=== PATIENT | female | born 1975 | race Caucasian/White ===

== ENCOUNTER 2020-04-16 12:41 | Emergency (ER) | payer MEDICAID ==
--- NOTE | 2020-04-16 13:51 | ED Physician Documentation ---
PD HPI FEMALE - Stated complaint Stated Complaint: F - Chief complaint Chief Complaint: General - History obtained from History obtained from: Patient PD PAST MEDICAL HISTORY - Past Medical History Past Medical History: No - Past Surgical History Past Surgical History: No - Present Medications Home Medications: Ambulatory Orders Medication Instructions Recorded Confirmed No Known Home Medications 04/16/20 04/16/20 - Allergies Allergies/Adverse Reactions: Allergies Allergy/AdvReac Type Severity Reaction Status Date / Time Penicillins Allergy Anaphylaxis Verified 04/16/20 12:49 - Social History Does the pt smoke?: No Smoking Status: Never smoker Does the pt have substance abuse?: No - POLST Patient has POLST: No Results - Vitals Vitals: Vital Signs - 24 hr 04/16/20 12:47 Temperature 36.3 C L Heart Rate 69 Respiratory 16 Rate Blood Pressure 118/75 O2 Saturation 98 Oxygen O2 Source Room air
--- NOTE | 2020-04-16 15:50 | ED Physician Documentation ---
History of Present Illness - Stated complaint Stated Complaint: F - Chief complaint Chief Complaint: General - History obtained from History obtained from: Patient - Additonal information Additional information: Patient comes emergency department complaining of left pelvic pain and possibility of having left a tampon in which she cannot get out for the last 5 days. Patient states that she was on her period and thought she may have forgotten to put a tampon in, so she inserted a tampon at that time. Patient states she felt some discomfort in her left pelvic area and thought that perhaps she had already put a tampon and now had [address] However, when patient removed the second tampon, she did not find another tampon came out with it. She states she tried to see if she could locate the other potential tampon, but was not able to find a string or any other part of it to pull out. Patient states she is continued to have left pelvic discomfort which is a pressure-like feeling, for the last several days since. She denies any bleeding or foul- smelling discharge. No fevers or chills. Nothing else unusual. No other complaints at this time. Review of Systems Ten Systems: 10 systems reviewed and negative Constitutional: reports: Reviewed and negative Eyes: reports: Reviewed and negative Ears: reports: Reviewed and negative Nose: reports: Reviewed and negative Throat: reports: Reviewed and negative Cardiac: reports: Reviewed and negative Respiratory: reports: Reviewed and negative GI: reports: Reviewed and negative : reports: Other (Pelvic Discomfort) Skin: reports: Reviewed and negative Musculoskeletal: reports: Reviewed and negative Neurologic: reports: Reviewed and negative Psychiatric: reports: Reviewed and negative Endocrine: reports: Reviewed and negative Immunocompromised: reports: Reviewed and negative PD PAST MEDICAL HISTORY - Past Medical History Past Medical History: No - Past Surgical History Past Surgical History: No - Present Medications Home Medications: Ambulatory Orders Medication Instructions Recorded Confirmed No Known Home Medications 04/16/20 04/16/20 - Allergies Allergies/Adverse Reactions: Allergies Allergy/AdvReac Type Severity Reaction Status Date / Time Penicillins Allergy Anaphylaxis Verified 04/16/20 12:49 - Social History Does the pt smoke?: No Smoking Status: Never smoker Does the pt have substance abuse?: No - POLST Patient has POLST: No PD ED PE NORMAL - Vitals Vital signs reviewed: Yes - General General: Alert and oriented X 3, No acute distress - HEENT HEENT: Atraumatic, PERRL, EOMI, Moist mucous membranes - Neck Neck: Supple, no meningeal sign - Cardiac Cardiac: RRR, No murmur, Strong equal pulses - Respiratory Respiratory: No respiratory distress, Clear bilaterally - Abdomen Abdomen: Soft, Non tender, Non distended - Female Female : Other (Normal vaginal exam. External genitalia normal. No bleeding. Normal vaginal mucosa and normal-appearing cervix. No bleeding or other evidence of trauma. No foreign body noted, either within the vagina or within sulcus surrounding the cervix. No mass.) - Derm Derm: Warm and dry - Extremities Extremities: No deformity - Neuro Neuro: Alert and oriented X 3 - Psych Psych: Normal mood, Normal affect Results - Vitals Vitals: Oxygen O2 Source Room air - Labs Labs: Laboratory Tests 04/16/20 18:30 Urine Color YELLOW Urine Clarity CLEAR Urine pH 6.0 Ur Specific [place] 1.015 Urine Protein NEGATIVE Urine Glucose (UA) NEGATIVE Urine Ketones TRACE Urine Occult Blood TRACE-INTA Urine Nitrite NEGATIVE Urine Bilirubin NEGATIVE Urine Urobilinogen 0.2 (NORMAL) Ur Leukocyte Esterase NEGATIVE Ur Microscopic Review NOT INDICATED Urine Culture Comments NOT INDICATED PD MEDICAL DECISION MAKING - ED course Complexity details: reviewed results, re-evaluated patient, considered differential, d/w patient ED course: I discussed with the patient that I have not found a tampon in place, either within the vaginal canal or up along the cervix. As such, I am not sure of the cause of her pelvic pressure and discomfort, so I ordered an ultrasound to further evaluate this. Patient was signed out to oncoming emergency physician pending ultrasound and final disposition. Departure - Departure Disposition: 01 Home, Self Care Clinical Impression: Pelvic pain Condition: Stable Instructions: ED Pelvic Pain [facility] Follow-Up: Mandy Costa MD [Provider Admit Priv/Credential] - Comments: Your ultrasound showed some general enlargement and thickening of the uterus but not in any one location. (Not a fibroid or tumor). No other pelvic abnormalities seen. Your urine test is normal. Not clear the cause of the pelvic discomfort at this time. Consider some anti-inflammatory such as ibuprofen or naproxen twice daily for potential inflammation or such. Follow-up with [facility] regarding if any further evaluation is needed about the uterus but the radiology report does state its common finding and some percentage of ultrasounds. Discharge Date/Time: 04/16/20 20:30
--- NOTE | 2020-04-16 17:13 | Ultrasound Report ---
Reason: pelvic pain, R Procedure Date: 04/16/2020 Accession Number: [id number] / [id number] Procedure: US - Pelvic w/Transvag+Doppler Comp CPT Code: Final Report FULL RESULT: EXAM: PELVIC ULTRASOUND WITH DOPPLERS CLINICAL HISTORY: Right pelvic pain. COMPARISON: None. TECHNIQUE: Realtime transabdominal imaging performed to identify the uterus and adnexa and as an overview of other pelvic structures, followed by transvaginal imaging for better assessment of the endometrium and adnexa, with static image documentation. Color flow imaging and Doppler spectral analysis was performed to evaluate blood flow to the ovaries given pelvic pain and clinical concern for ovarian torsion. FINDINGS: Tech comments: Patient tender in left adnexa during exam. Uterus: 10.3 x 5.5 x 5.8 cm, volume 171.2 cc. Anteverted position. Normal overall size. 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 Masses: There is a 3 cm submucosal fibroid within the posterior uterine body. Endometrium: 8 mm. Normal. Cervix: Several nabothian cysts. Otherwise unremarkable. Right Ovary: 2.6 x 2.4 x 2.1 cm, volume 7 cc. Normal echotexture. Arterial and venous blood flow are present. PSV 9.4 cm/sec. RI 0.6. Adnexa are unremarkable. Left Ovary: 2.3 x 1.7 x 3.4 cm, volume 7.2 cc. Normal echotexture. Arterial and venous blood flow are present. PSV 8.7 cm/sec. RI 0.7. Adnexa are unremarkable. Free Fluid: None. Other: None. IMPRESSION: 1. Question diffuse uterine adenomyosis. Recommend nonemergent MRI female pelvis for further evaluation. 2. Fibroid uterus. 3. Arterial and venous blood flow are present to the ovaries bilaterally. RADIA
[2020-04-16 19:07] LABS: BILIRUBIN,URINE NEGATIVE (NEGATIVE); CLARITY,URINE CLEAR (CLEAR); GLUCOSE, URINE (UA) NEGATIVE (NEGATIVE); KETONES,URINE (UA) TRACE mg/dL (NEGATIVE); LEUKOCYTE ESTERASE, URINE NEGATIVE (NEGATIVE); NITRITE,URINE NEGATIVE (NEGATIVE); OCCULT BLOOD,URINE TRACE-INTA (NEGATIVE); PROTEIN,URINE NEGATIVE (NEGATIVE); UROBILINOGEN,URINE 0.2 (NORMAL) E.U./dL (NORMAL)
[2020-04-16 20:21] VITALS: BP 119/78
== END 2020-04-16 20:30 | disposition home or self-care (01) ==
LOC: ED 12:41
DX: R10.2 Pelvic and perineal pain (principal); D25.0 Submucous leiomyoma of uterus
CPT/HCPCS: 76830; 76856; 81001; 81003; 87086; 93975; 99284

== ENCOUNTER 2020-11-29 17:44 | Emergency (ER) | payer MEDICAID ==
--- NOTE | 2020-11-29 18:08 | ED Physician Documentation ---
PD HPI CHEST PAIN - Stated complaint Stated Complaint: CHEST DISCOMFORT - Chief complaint Chief Complaint: Cardiac - History obtained from History obtained from: Patient - Additional information Additional information: For the last month she has had progressive palpitations. Initially they were only present with activity, now they are present at rest. It is pounding of the heart, that does still worsens with exertion especially walking up the stairs. She does feel short of breath with exertion with it. Today her had gotten her a new watch which measures heart rate and evidently somehow managed measures blood pressure even though it does not have a cuff on it. It told her her blood pressure was 140/80 and this worried her to come to the emergency department. Family history is notable for mom who of cardiomyopathy that was viral related while waiting for transplant and a maternal grandfather who in his 60s of an [place] but he was a heavy smoker. Of note I took a look at the new watch she has. It seems to have a mechanism for checking heart rate with a Fitbit type mechanism with flashing green lights. But I do not see how it will check blood pressure. Review of Systems Ten Systems: 10 systems reviewed and negative Constitutional: denies: Fever, Chills, Weight Loss Cardiac: denies: Pedal edema, Calf pain Respiratory: denies: Hemoptysis, Wheezing GI: denies: Abdominal Pain PD PAST MEDICAL HISTORY - Past Medical History Past Medical History: No - Past Surgical History Past Surgical History: No - Present Medications Home Medications: Ambulatory Orders Medication Instructions Recorded Confirmed Ferrous Sulfate 325 mg PO TID #90 tablet. 11/29/20 - Allergies Allergies/Adverse Reactions: Allergies Allergy/AdvReac Type Severity Reaction Status Date / Time Penicillins Allergy Anaphylaxis Verified 11/29/20 17:54 - Social History Does the pt smoke?: No Smoking Status: Never smoker Does the pt drink ETOH?: Yes ETOH Use: Wine Does the pt have substance abuse?: No - Immunizations Immunizations are current?: Yes - POLST Patient has POLST: No PD ED PE NORMAL - Vitals Vital signs reviewed: Yes - General General: Alert and oriented X 3, No acute distress - HEENT HEENT: PERRL, EOMI - Neck Neck: Supple, no meningeal sign, No bony TTP - Cardiac Cardiac: RRR, No murmur - Respiratory Respiratory: No respiratory distress, Clear bilaterally - Abdomen Abdomen: Non tender - Back Back: No CVA TTP, No spinal TTP - Derm Derm: Normal color, Warm and dry - Extremities Extremities: No edema, No calf tenderness / cord - Neuro Neuro: Alert and oriented X 3, Normal speech Results - Vitals Vitals: Vital Signs - 24 hr 11/29/20 11/29/20 11/29/20 17:55 18:01 18:03 Temperature 36.6 C 36.6 C 36.6 C Heart Rate 99 94 Respiratory 16 21 Rate Blood Pressure 129/73 129/73 O2 Saturation 100 100 11/29/20 11/29/20 11/29/20 18:04 19:51 20:01 Temperature 36.6 C 37.5 C Heart Rate 99 96 88 Respiratory 16 21 12 Rate Blood Pressure 129/73 112/68 109/56 L O2 Saturation 100 97 11/29/20 11/29/20 11/29/20 20:03 20:13 20:57 Temperature 37.2 C 37.1 C 37.5 C Heart Rate 96 95 92 Respiratory 13 98 H 21 Rate Blood Pressure 108/60 122/66 119/60 O2 Saturation 11/29/20 11/29/20 11/29/20 21:45 21:55 22:03 Temperature 37.6 C 37.6 C 37.1 C Heart Rate 88 88 87 Respiratory 19 19 20 Rate Blood Pressure 112/57 L 112/57 L 106/59 L O2 Saturation 11/29/20 11/29/20 11/29/20 22:12 22:19 23:07 Temperature 36.8 C 37.5 C Heart Rate 78 74 Respiratory 14 11 L Rate Blood Pressure 98/47 L 101/56 L 96/56 L O2 Saturation 11/29/20 23:50 Temperature 37.5 C Heart Rate 74 Respiratory 12 Rate Blood Pressure 106/57 L O2 Saturation Oxygen O2 Source Room air - EKG (time done) 1750 Rate: Rate (enter#) (92) Rhythm: NSR [place]: LAD (borderline) Intervals: Normal PA QRS: Normal Ischemia: Normal ST segments Computer interpretation: Agree with computer - Labs Labs: Laboratory Tests 11/29/20 11/29/20 11/29/20 18:20 18:20 18:20 WBC 10.6 RBC 2.86 L Hgb 4.7 L* Hct 18.3 L* MCV 64.0 L MCH 16.4 L MCHC 25.7 L RDW 20.0 H Plt Count 437 MPV 10.1 Neut # (Auto) 7.1 H Lymph # (Auto) 2.2 Hardy # (Auto) 1.0 Eos # (Auto) 0.1 Baso # (Auto) 0.0 Absolute Nucleated RBC 0.05 Nucleated RBC % 0.5 Manual Slide Review Indicated Platelet Estimate NORMAL (130-450,000) Platelet Morphology NORMAL APPEARANCE RBC Morph Micro Appear 1+ ACANTHOCYTES D-Dimer 743.1 H Sodium 136 Potassium 3.5 Chloride 99 L Carbon Dioxide 22 Anion Gap 15.0 H BUN 12 Creatinine 0.9 Estimated GFR (MDRD) 67 L Glucose 141 H Calcium 9.0 Total Bilirubin 0.4 AST 23 ALT 24 Alkaline Phosphatase 104 Troponin I High Sens B-Natriuretic Peptide Total Protein 8.4 H Albumin 3.9 Globulin 4.5 H Albumin/Globulin Ratio 0.9 L Lipase 51 Urine Color Urine Clarity Urine pH Ur Specific [place] Urine Protein Urine Glucose (UA) Urine Ketones Urine Occult Blood Urine Nitrite Urine Bilirubin Urine Urobilinogen Ur Leukocyte Esterase Urine RBC Urine WBC Ur Squamous Epith Cells Urine Bacteria Ur Microscopic Review Urine Culture Comments Urine HCG, Qual Urine Opiates Screen Ur Oxycodone Screen Urine Methadone Screen Ur Propoxyphene Screen Ur Barbiturates Screen Ur Tricyclics Screen Ur Phencyclidine Scrn Ur Amphetamine Screen U Methamphetamines Scrn U Benzodiazepines Scrn Urine Cocaine Screen U Cannabinoids Screen Blood Type Blood Type Recheck Antibody Screen Crossmatch IS Only 11/29/20 11/29/20 11/29/20 18:20 18:20 18:20 WBC RBC Hgb Hct MCV MCH MCHC RDW Plt Count MPV Neut # (Auto) Lymph # (Auto) Hardy # (Auto) Eos # (Auto) Baso # (Auto) Absolute Nucleated RBC Nucleated RBC % Manual Slide Review Platelet Estimate Platelet Morphology RBC Morph Micro Appear D-Dimer Sodium Potassium Chloride Carbon Dioxide Anion Gap BUN Creatinine Estimated GFR (MDRD) Glucose Calcium Total Bilirubin AST ALT Alkaline Phosphatase Troponin I High Sens 2.3 B-Natriuretic Peptide 58 Total Protein Albumin Globulin Albumin/Globulin Ratio Lipase Urine Color YELLOW Urine Clarity HAZY Urine pH 5.5 Ur Specific [place] <=1.005 Urine Protein NEGATIVE Urine Glucose (UA) NEGATIVE Urine Ketones NEGATIVE Urine Occult Blood SMALL H Urine Nitrite NEGATIVE Urine Bilirubin NEGATIVE Urine Urobilinogen 0.2 (NORMAL) Ur Leukocyte Esterase NEGATIVE Urine RBC 0-5 Urine WBC 0-3 Ur Squamous Epith Cells FEW Squamous Urine Bacteria Few Ur Microscopic Review INDICATED Urine Culture Comments NOT INDICATED Urine HCG, Qual NEGATIVE Urine Opiates Screen NEGATIVE Ur Oxycodone Screen NEGATIVE Urine Methadone Screen NEGATIVE Ur Propoxyphene Screen NEGATIVE Ur Barbiturates Screen NEGATIVE Ur Tricyclics Screen NEGATIVE Ur Phencyclidine Scrn NEGATIVE Ur Amphetamine Screen NEGATIVE U Methamphetamines Scrn NEGATIVE U Benzodiazepines Scrn NEGATIVE Urine Cocaine Screen NEGATIVE U Cannabinoids Screen POSITIVE H Blood Type Blood Type Recheck Antibody Screen Crossmatch IS Only 11/29/20 11/29/20 11/30/20 18:20 18:55 00:15 WBC 10.8 RBC 3.43 L Hgb 7.0 L* Hct 24.5 L MCV 71.4 L MCH 20.4 L MCHC 28.6 L RDW 25.4 H Plt Count 350 MPV 10.4 Neut # (Auto) 7.5 H Lymph # (Auto) 1.9 Hardy # (Auto) 1.3 H Eos # (Auto) 0.1 Baso # (Auto) 0.0 Absolute Nucleated RBC 0.08 Nucleated RBC % 0.7 Manual Slide Review Platelet Estimate Platelet Morphology RBC Morph Micro Appear D-Dimer Sodium Potassium Chloride Carbon Dioxide Anion Gap BUN Creatinine Estimated GFR (MDRD) Glucose Calcium Total Bilirubin AST ALT Alkaline Phosphatase Troponin I High Sens B-Natriuretic Peptide Total Protein Albumin Globulin Albumin/Globulin Ratio Lipase Urine Color Urine Clarity Urine pH Ur Specific [place] Urine Protein Urine Glucose (UA) Urine Ketones Urine Occult Blood Urine Nitrite Urine Bilirubin Urine Urobilinogen Ur Leukocyte Esterase Urine RBC Urine WBC Ur Squamous Epith Cells Urine Bacteria Ur Microscopic Review Urine Culture Comments Urine HCG, Qual Urine Opiates Screen Ur Oxycodone Screen Urine Methadone Screen Ur Propoxyphene Screen Ur Barbiturates Screen Ur Tricyclics Screen Ur Phencyclidine Scrn Ur Amphetamine Screen U Methamphetamines Scrn U Benzodiazepines Scrn Urine Cocaine Screen U Cannabinoids Screen Blood Type AB POSITIVE Blood Type Recheck AB POSITIVE Antibody Screen NEGATIVE Crossmatch IS Only See Detail - Rads (name of study) CTA Chest Radiology: EMP read indepedently (No PE, note of gallstones) PD MEDICAL DECISION MAKING - ED course ED course: 45-year-old woman presents with progressive rapid palpitations especially on exertion. She was found to be significantly anemic with a hemoglobin of 4.7 with microcytic indices. She says she is pretty much had constant bleeding for the last 4 to 5 months. Menstrual bleeding that is. Review of the chart and after discussing this she notes that she was here in March for pelvic pain and had an ultrasound done showing question of diffuse uterine adenomyosis and fibroid uterus recommending MRI and follow-up. Patient was recommended to follow-up with [facility] but failed to do so. Case d/w Dr Whitten (product assurance engineer) by phone at [phone], agrees with transfusion and outpt f/u to likely include EMB. This was all complicated by the high D-dimer ordered after initial evaluation given her complaints. CT angiography was ordered and done noting that I tried several times to put in an IV larger than the 22-gauge that the nurse was able to get. This was only met with failure even with ultrasound guidance. That said I discussed with the shipping technician to go ahead and do it with the 22G IV and the images actually do not look too bad to me. Given 2 units of pRBCs and after that HGB = 7. She will start iron tomorrow and verbalizes need for close f/u with veneer glue jointer feedback. Departure - Departure Disposition: Home, Self Care Clinical Impression: Vaginal bleeding Chest pain Qualifiers: Chest pain type: other chest pain Qualified Code(s): R07.89 - Other chest pain Profound anemia Qualifiers: Anemia type: iron deficiency Iron deficiency anemia type: chronic blood loss Qualified Code(s): D50.0 - Iron deficiency anemia secondary to blood loss (chronic) Condition: Good Record reviewed to determine appropriate education?: Yes Instructions: ED Bleed Irregular Vaginal Follow-Up: Andrew Whitten MD [Provider Admit Priv/Credential] - Within 1 week Prescriptions: Ferrous Sulfate 325 mg PO TID #90 tablet. Comments: Your hemoglobin came up to 7.0 after 2 units of blood were transfused today. As discussed you need to follow-up with OB later this week for repeat blood counts, and further evaluation of the vaginal bleeding potentially a pelvic MRI or endometrial biopsy. Return if worsening. Discharge Date/Time: 11/30/20 00:30
[2020-11-29 18:26] LABS: MUDS CUTOFF CONCENTRATIONS CUTOFF CONC BELOW:
[2020-11-29 18:34] LABS: BASOPHILS % (AUTO) 0.4 %; BILIRUBIN,URINE NEGATIVE (NEGATIVE); EOSINOPHILS # (AUTO) 0.1 10^3/uL (0.0-0.7); EOSINOPHILS % (AUTO) 1.2 %; GLUCOSE, URINE (UA) NEGATIVE (NEGATIVE); KETONES,URINE (UA) NEGATIVE (NEGATIVE); LEUKOCYTE ESTERASE, URINE NEGATIVE (NEGATIVE); LYMPHOCYTES # (AUTO) 2.2 10^3/uL (1.5-3.5); LYMPHOCYTES % (AUTO) 20.6 %; MEAN CORPUSCULAR HEMOGLOBIN 16.4 pg (27.0-31.0); MEAN CORPUSCULAR HGB CONC 25.7 g/dL (32.0-36.0); MEAN PLATELET VOLUME 10.1 fL (7.9-10.8); MONOCYTES % (AUTO) 9.4 %; NEUTROPHILS # (AUTO) 7.1 10^3/uL (1.5-6.6); NEUTROPHILS % (AUTO) 67.6 %; NITRITE,URINE NEGATIVE (NEGATIVE); OCCULT BLOOD,URINE SMALL (NEGATIVE); PH,URINE 5.5 PH (5.0-7.5); PLT - PLATELET COUNT 437 10^3/uL (130-450); PROTEIN,URINE NEGATIVE (NEGATIVE); RED BLOOD COUNT 2.86 10^6/uL (4.20-5.40); UROBILINOGEN,URINE 0.2 (NORMAL) E.U./dL (NORMAL); WHITE BLOOD COUNT 10.6 x10^3/uL (4.8-10.8)
--- NOTE | 2020-11-29 18:34 | XRAY Report ---
PROCEDURE: Chest 1 View X-Ray INDICATIONS: chest pain TECHNIQUE: One view of the chest was acquired. COMPARISON: None FINDINGS: Surgical changes and devices: None. Lungs and pleura: No pleural effusions or pneumothorax. Lungs are clear. Mediastinum: Mediastinal contours appear normal. Heart size is normal. Bones and chest wall: No suspicious bony lesions. Overlying soft tissues appear unremarkable. IMPRESSION: No acute cardiopulmonary pathology. Reviewed by: Christiano Vyas MD on 11/29/2020 6:32 PM [facility] Approved by: Christiano Vyas MD on 11/29/2020 6:32 PM [facility] Station ID: [id number]
[2020-11-29 18:36] LABS: HGB - HEMOGLOBIN 4.7 g/dL (12.0-16.0)
[2020-11-29 18:43] LABS: ALBUMIN 3.9 g/dL (3.2-5.5); ALBUMIN/GLOBULIN RATIO 0.9 (1.0-2.2); BILIRUBIN,TOTAL 0.4 mg/dL (0.2-1.0); CREATININE 0.9 mg/dL (0.4-1.0); TOTAL PROTEIN 8.4 g/dL (6.7-8.2)
[2020-11-29 18:44] LABS: CLARITY,URINE HAZY (CLEAR); HCG UR QUAL NEGATIVE
[2020-11-29 18:45] LABS: AMPHETAMINE SCREEN,URINE NEGATIVE (NEGATIVE); BENZODIAZEPINES SCREEN, URINE NEGATIVE (NEGATIVE); COCAINE SCREEN URINE NEGATIVE (NEGATIVE); METHADONE SCREEN, URINE NEGATIVE (NEGATIVE); METHAMPHETAMINES SCREEN, URINE NEGATIVE (NEGATIVE); OPIATE SCREEN, URINE NEGATIVE (NEGATIVE); OXYCODONE SCREEN, URINE NEGATIVE (NEGATIVE); PROPOXYPHENE SCREEN, URINE NEGATIVE (NEGATIVE); TRICYCLIC ANTIDEPRESSANT,URINE NEGATIVE (NEGATIVE)
[2020-11-29 18:56] LABS: BACTERIA,URINE Few /HPF (None Seen); RBC,URINE 0-5 /HPF (0-5); SQUAMOUS EPITHELIAL CELL,UR FEW Squamous (<= Few)
[2020-11-29 19:02] LABS: PLATELET ESTIMATE, MANUAL NORMAL (130-450,000) (NORMAL); PLATELET MORPHOLOGY NORMAL APPEARANCE (NORMAL)
[2020-11-29] MEDS ORDERED: IOVERSOL 320 100 ML VIAL IVP ONE ×2 (19:15→19:45)
--- NOTE | 2020-11-29 20:02 | CT Report ---
PROCEDURE: ANGIO CHEST W/WO INDICATIONS: palpitations, high dimer CONTRAST: IV CONTRAST: Optiray 320 ml: 100 PO CONTRAST: *NO PO CONTRAST TECHNIQUE: After the administration of intravenous contrast, 2 mm thick sections acquired from the pulmonary api lawson to the posterior costophrenic angles. 3-dimensional maximum intensity projection (MIP) coronal a nd sagittal reformats were then acquired through the thorax. For radiation dose reduction, the follow ing was used: automated exposure control, adjustment of mA and/or kV according to patient size. COMPARISON: Chest radiograph from the same day. FINDINGS: Image quality: Excellent. Pulmonary arteries: Pulmonary arteries are normal in size, and demonstrate no intraluminal filling d efects to suggest central pulmonary embolism. Distal subsegmental branches of bilateral pulmonary ar teries are suboptimally opacified. Lungs and pleura: Lungs are clear. No pleural effusions or pneumothorax. Central and peripheral ai rways are patent. Mediastinum: Heart size is normal, without pericardial effusion. No mediastinal or hilar adenopathy . Thoracic aorta is normal in caliber and enhancement. Esophagus is normal in caliber, without hiat al hernia. Bones and chest wall: No suspicious bony lesions. Ribs and thoracic spine appear intact throughout. The thyroid is normal. No axillary or supraclavicular adenopathy. Abdomen: Visualized upper abdominal solid organs appear normal in the early arterial phase of enhanc ement. Cholelithiasis is seen. IMPRESSION: 1. No evidence of central pulmonary emboli. No thoracic aortic aneurysm or gross dissection. 2. No mediastinal or hilar lymphadenopathy. 3. Bilateral lungs are clear. 4. Incidentally noted of cholelithiasis. No CT evidence of acute cholecystitis. Reviewed by: Christiano Vyas MD on 11/29/2020 8:01 PM PST Approved by: Christiano Vyas MD on 11/29/2020 8:01 PM PST Station ID: [id number]
[2020-11-29 23:51] VITALS: BP 106/57
[2020-11-30 00:18] LABS: BASOPHILS % (AUTO) 0.4 %; EOSINOPHILS # (AUTO) 0.1 10^3/uL (0.0-0.7); EOSINOPHILS % (AUTO) 0.6 %; LYMPHOCYTES # (AUTO) 1.9 10^3/uL (1.5-3.5); LYMPHOCYTES % (AUTO) 17.6 %; MEAN CORPUSCULAR HEMOGLOBIN 20.4 pg (27.0-31.0); MEAN CORPUSCULAR HGB CONC 28.6 g/dL (32.0-36.0); MEAN CORPUSCULAR VOLUME 71.4 fL (81.0-99.0); MEAN PLATELET VOLUME 10.4 fL (7.9-10.8); MONOCYTES # (AUTO) 1.3 10^3/uL (0.0-1.0); MONOCYTES % (AUTO) 11.8 %; NEUTROPHILS # (AUTO) 7.5 10^3/uL (1.5-6.6); NEUTROPHILS % (AUTO) 68.9 %; PLT - PLATELET COUNT 350 10^3/uL (130-450); RED BLOOD COUNT 3.43 10^6/uL (4.20-5.40); RED CELL DISTRIBUTION WIDTH 25.4 % (12.0-15.0); WHITE BLOOD COUNT 10.8 x10^3/uL (4.8-10.8)
== END 2020-11-30 00:30 | disposition home or self-care (01) ==
LOC: ED 17:44
DX: R07.89 Other chest pain (principal); D50.0 Iron deficiency anemia secondary to blood loss (chronic); N93.9 Abnormal uterine and vaginal bleeding, unspecified; R79.89 Other specified abnormal findings of blood chemistry
CPT/HCPCS: 36430; 71045; 71275; 80053; 80306; 81001; 81025; 83690; 83880; 84484; 85025; 85379; 86850; 86900; 86901; 86920; 93005; 99283; 99285; P9016; Q9967; 81003; 87086

== ENCOUNTER 2021-07-11 14:50 | Emergency (ER) | payer MEDICAID ==
--- NOTE | 2021-07-11 15:31 | ED Physician Documentation ---
PD HPI CHEST PAIN - Stated complaint Stated Complaint: HEART PAPILTATIONS,WEAKNESS - Chief complaint Chief Complaint: Cardiac - History obtained from History obtained from: Patient - Additional information Additional information: 46-year-old woman with history of profound anemia. Had a hemoglobin of 4.7 on a visit earlier this year which was attributed to fibroid uterus. She was transfused at the time and her presenting symptoms that time her palpitations. She has a home hemoglobin monitor and watches her hemoglobin at home. She did not follow-up with gynecology as was recommended because she states she would not want a hysterectomy. Her hemoglobins are usually in the 9 or 10 range but dropped down to 7 and actually today read "low" which it does when it is below 6. Is associated with increased palpitations. No chest pain. She has some fatigue. Review of Systems Ten Systems: 10 systems reviewed and negative Constitutional: reports: Fatigue Cardiac: reports: Palpitations. denies: Chest pain / pressure Respiratory: denies: Dyspnea, Cough PD PAST MEDICAL HISTORY - Past Surgical History Past Surgical History: No - Present Medications Home Medications: Ambulatory Orders Medication Instructions Recorded Confirmed Ferrous Sulfate 325 mg PO TID #90 tablet. 11/29/20 07/11/21 Ferrous Sulfate 325 mg PO TID #90 07/11/21 - Allergies Allergies/Adverse Reactions: Allergies Allergy/AdvReac Type Severity Reaction Status Date / Time Penicillins Allergy Anaphylaxis Verified 07/11/21 14:54 - Social History Does the pt smoke?: No Smoking Status: Never smoker Does the pt drink ETOH?: No Does the pt have substance abuse?: No Substance Use and Type: Marijuana - Immunizations Immunizations are current?: Yes - POLST Patient has POLST: No PD ED PE NORMAL - Vitals Vital signs reviewed: Yes - General General: Alert and oriented X 3, No acute distress - HEENT HEENT: PERRL, EOMI - Neck Neck: Supple, no meningeal sign, No bony TTP - Cardiac Cardiac: RRR, No murmur - Respiratory Respiratory: No respiratory distress, Clear bilaterally - Abdomen Abdomen: Soft, Non tender - Back Back: No CVA TTP, No spinal TTP - Derm Derm: Normal color, Warm and dry - Extremities Extremities: No edema, No calf tenderness / cord - Neuro Neuro: Alert and oriented X 3, Normal speech Results - Vitals Vitals: Vital Signs - 24 hr 0807/11/21 07/11/21 14:54 15:01 15:48 Temperature 36.5 C Heart Rate 82 84 Respiratory 16 12 Rate Blood Pressure 123/59 L 121/84 H O2 Saturation 100 100 07/11/21 07/11/21 07/11/21 17:01 18:11 18:20 Temperature 36.9 C 36.6 C Heart Rate 89 83 84 Respiratory 12 16 15 Rate Blood Pressure 107/75 128/63 107/64 O2 Saturation 100 07/11/21 07/11/21 07/11/21 18:30 19:23 19:24 Temperature 36.6 C 36.6 C Heart Rate 85 90 84 Respiratory 16 16 13 Rate Blood Pressure 98/62 117/65 124/66 O2 Saturation 100 100 07/11/21 07/11/21 07/11/21 19:25 19:32 20:49 Temperature 36.6 C 36.6 C Heart Rate 81 84 84 Respiratory 17 12 18 Rate Blood Pressure 119/64 115/60 113/65 O2 Saturation 100 100 99 Oxygen O2 Source Room air - EKG (time done) 1455 Rate: Rate (enter#) (92) Rhythm: NSR, LAE [place]: Normal Intervals: Normal NE QRS: Low voltage Ischemia: Normal ST segments. No: ST elevation c/w ischemia, ST elevation c/w repol, ST depression - Labs Labs: Laboratory Tests 07/11/21 07/11/21 07/11/21 15:25 15:25 15:25 WBC 9.5 RBC 3.72 L Hgb 6.3 L* Hct 24.7 L MCV 66.4 L MCH 16.9 L MCHC 25.5 L RDW 21.6 H Plt Count 499 H MPV 9.8 Neut # (Auto) 6.5 Lymph # (Auto) 1.8 [place] # (Auto) 1.0 Eos # (Auto) 0.1 Baso # (Auto) 0.0 Absolute Nucleated RBC 0.02 Nucleated RBC % 0.2 Manual Slide Review Indicated WBC Morphology NORMAL APPEARANCE Platelet Estimate NORMAL (130-450,000) Platelet Morphology NORMAL APPEARANCE RBC Morph Micro Appear 2+ MICROCYTOSIS Sodium 138 Potassium 3.8 Chloride 105 Carbon Dioxide 23 Anion Gap 10.0 BUN 8 Creatinine 0.8 Estimated GFR (MDRD) 77 L Glucose 132 H POC Whole Bld Glucose Calcium 8.8 Iron TIBC % Saturation Transferrin Total Bilirubin 0.7 AST 26 ALT 38 Alkaline Phosphatase 104 Troponin I High Sens 3.6 Total Protein 8.0 Albumin 4.0 Globulin 4.0 Albumin/Globulin Ratio 1.0 Lipase 49 Urine Color Urine Clarity Urine pH Ur Specific [place] Urine Protein Urine Glucose (UA) Urine Ketones Urine Occult Blood Urine Nitrite Urine Bilirubin Urine Urobilinogen Ur Leukocyte Esterase Urine RBC Urine WBC Ur Squamous Epith Cells Urine Bacteria Urine Mucus Ur Microscopic Review Urine Culture Comments Urine HCG, Qual Blood Type Antibody Screen Crossmatch IS Only 07/11/21 07/11/21 07/11/21 15:25 15:30 17:06 WBC RBC Hgb Hct MCV MCH MCHC RDW Plt Count MPV Neut # (Auto) Lymph # (Auto) [place] # (Auto) Eos # (Auto) Baso # (Auto) Absolute Nucleated RBC Nucleated RBC % Manual Slide Review WBC Morphology Platelet Estimate Platelet Morphology RBC Morph Micro Appear Sodium Potassium Chloride Carbon Dioxide Anion Gap BUN Creatinine Estimated GFR (MDRD) Glucose POC Whole Bld Glucose Calcium Iron 64 TIBC 690 H % Saturation 9 L Transferrin 493 H Total Bilirubin AST ALT Alkaline Phosphatase Troponin I High Sens Total Protein Albumin Globulin Albumin/Globulin Ratio Lipase Urine Color YELLOW Urine Clarity CLEAR Urine pH 6.5 Ur Specific [place] <=1.005 Urine Protein NEGATIVE Urine Glucose (UA) NEGATIVE Urine Ketones NEGATIVE Urine Occult Blood MODERATE H Urine Nitrite NEGATIVE Urine Bilirubin NEGATIVE Urine Urobilinogen 0.2 (NORMAL) Ur Leukocyte Esterase NEGATIVE Urine RBC 6-10 H Urine WBC 0-3 Ur Squamous Epith Cells MOD Squamous H Urine Bacteria Rare Urine Mucus Few Strands Ur Microscopic Review INDICATED Urine Culture Comments NOT INDICATED Urine HCG, Qual NEGATIVE Blood Type AB POSITIVE Antibody Screen NEGATIVE Crossmatch IS Only See Detail 07/11/21 19:07 WBC RBC Hgb Hct MCV MCH MCHC RDW Plt Count MPV Neut # (Auto) Lymph # (Auto) [place] # (Auto) Eos # (Auto) Baso # (Auto) Absolute Nucleated RBC Nucleated RBC % Manual Slide Review WBC Morphology Platelet Estimate Platelet Morphology RBC Morph Micro Appear Sodium Potassium Chloride Carbon Dioxide Anion Gap BUN Creatinine Estimated GFR (MDRD) Glucose POC Whole Bld Glucose 103 H Calcium Iron TIBC % Saturation Transferrin Total Bilirubin AST ALT Alkaline Phosphatase Troponin I High Sens Total Protein Albumin Globulin Albumin/Globulin Ratio Lipase Urine Color Urine Clarity Urine pH Ur Specific [place] Urine Protein Urine Glucose (UA) Urine Ketones Urine Occult Blood Urine Nitrite Urine Bilirubin Urine Urobilinogen Ur Leukocyte Esterase Urine RBC Urine WBC Ur Squamous Epith Cells Urine Bacteria Urine Mucus Ur Microscopic Review Urine Culture Comments Urine HCG, Qual Blood Type Antibody Screen Crossmatch IS Only PD MEDICAL DECISION MAKING - ED course ED course: 46-year-old woman with symptomatic anemia previously presumed to be due to a gynecologic cause now has regulated periods but again has symptomatic anemia with hemoglobin of 6.3. We discussed blood transfusion and she initially declined at least wanting to think about it unless we could guarantee that the source had not been vaccinated against Covid as she is worried about mRNA. Either way, the question arises of why she is persistently anemic when it can no longer at least clinically be attributed to a gynecologic source. Given that previous imaging recommended pelvic MRI which I presume was to rule out malignancy and she never followed up, will do a CT today to see if there is been massive progression of any pelvic disease. Either way I reiterated the necessity to follow-up now not only with gynecology, but probably hematology as well. After thinking about it she did want to go ahead with the unit of transfusion. Shortly into the transfusion she felt flushed but not IV or febrile. We stop the transfusion for a moment and gave her some Benadryl. After that she had no further issues. Doubt this was a true transfusion reaction. Departure - Departure Disposition: 01 Home, Self Care Clinical Impression: Palpitation Profound anemia Qualifiers: Anemia type: iron deficiency Iron deficiency anemia type: unspecified iron deficiency Qualified Code(s): D50.9 - Iron deficiency anemia, unspecified Uterine fibroid Qualifiers: Uterine leiomyoma location: unspecified location Qualified Code(s): D25.9 - Leiomyoma of uterus, unspecified Condition: Good Record reviewed to determine appropriate education?: Yes Instructions: ED Anemia Iron Deficiency Follow-Up: Andrew Whitten MD [Provider Admit Priv/Credential] - Jace Collado MD [Physician No Access] - (Hematology ) Prescriptions: Ferrous Sulfate 325 mg PO TID #90 Comments: As discussed, it is imperative follow-up both with gynecology as well as hematology. Numbers are on this form to call on Tuesday. Return for new or worsening symptoms.
[2021-07-11 15:32] LABS: BASOPHILS % (AUTO) 0.2 %; EOSINOPHILS # (AUTO) 0.1 10^3/uL (0.0-0.7); EOSINOPHILS % (AUTO) 1.1 %; HCT - HEMATOCRIT 24.7 % (37.0-47.0); LYMPHOCYTES # (AUTO) 1.8 10^3/uL (1.5-3.5); LYMPHOCYTES % (AUTO) 19.2 %; MEAN CORPUSCULAR HEMOGLOBIN 16.9 pg (27.0-31.0); MEAN CORPUSCULAR HGB CONC 25.5 g/dL (32.0-36.0); MEAN CORPUSCULAR VOLUME 66.4 fL (81.0-99.0); MEAN PLATELET VOLUME 9.8 fL (7.9-10.8); MONOCYTES % (AUTO) 10.7 %; NEUTROPHILS # (AUTO) 6.5 10^3/uL (1.5-6.6); NEUTROPHILS % (AUTO) 68.3 %; NRBC ABSOLUTE COUNT (AUTO) 0.02 x10^3/uL; NUCLEATED RED BLOOD CELLS AUTO 0.2 /100WBC; PLT - PLATELET COUNT 499 10^3/uL (130-450); RED BLOOD COUNT 3.72 10^6/uL (4.20-5.40); RED CELL DISTRIBUTION WIDTH 21.6 % (12.0-15.0); WHITE BLOOD COUNT 9.5 x10^3/uL (4.8-10.8)
[2021-07-11 15:35] LABS: HGB - HEMOGLOBIN 6.3 g/dL (12.0-16.0); SLIDE REVIEW? Indicated
[2021-07-11 15:46] LABS: BILIRUBIN,URINE NEGATIVE (NEGATIVE); GLUCOSE, URINE (UA) NEGATIVE (NEGATIVE); KETONES,URINE (UA) NEGATIVE (NEGATIVE); LEUKOCYTE ESTERASE, URINE NEGATIVE (NEGATIVE); NITRITE,URINE NEGATIVE (NEGATIVE); OCCULT BLOOD,URINE MODERATE (NEGATIVE); PH,URINE 6.5 PH (5.0-7.5); PROTEIN,URINE NEGATIVE (NEGATIVE); UROBILINOGEN,URINE 0.2 (NORMAL) E.U./dL (NORMAL)
[2021-07-11 15:47] LABS: CLARITY,URINE CLEAR (CLEAR); HCG UR QUAL NEGATIVE
[2021-07-11 15:49] LABS: BILIRUBIN,TOTAL 0.7 mg/dL (0.2-1.0); CALCIUM 8.8 mg/dL (8.5-10.3); CREATININE 0.8 mg/dL (0.4-1.0); POTASSIUM 3.8 mmol/L (3.5-5.0)
[2021-07-11 15:56] LABS: BACTERIA,URINE Rare /HPF (None Seen); MUCUS,URINE Few Strands; SQUAMOUS EPITHELIAL CELL,UR MOD Squamous (<= Few); WBC,URINE 0-3 /HPF (0-5)
[2021-07-11 16:10] LABS: % IRON SATURATION 9 % (20-50); IRON 64 ug/dL (28-170); TOTAL IRON BINDING CAPACITY 690 ug/dL (250-450); TRANSFERRIN 493 mg/dL (192-382)
--- NOTE | 2021-07-11 16:10 | XRAY Report ---
PROCEDURE: Chest 1 View X-Ray INDICATIONS: Chest pain TECHNIQUE: One view of the chest was acquired. COMPARISON: 11/29/2020 FINDINGS: Surgical changes and devices: None. Lungs and pleura: No pleural effusions or pneumothorax. Lungs are clear. Mediastinum: Mediastinal contours appear normal. Heart size is normal. Bones and chest wall: No suspicious bony lesions. Overlying soft tissues appear unremarkable. IMPRESSION: No acute cardiopulmonary findings Reviewed by: Sunil Larry MD on 07/11/2021 3:08 PM AKDT Approved by: Sunil Larry MD on 07/11/2021 3:08 PM AKDT Station ID: [id number]
[2021-07-11 16:12] LABS: PLATELET ESTIMATE, MANUAL NORMAL (130-450,000) (NORMAL); PLATELET MORPHOLOGY NORMAL APPEARANCE (NORMAL); WBC MORPHOLOGY (MULTIPLE) NORMAL APPEARANCE (NORMAL)
[2021-07-11 16:13] LABS: RBC MORPHOLOGY (MULTIPLE) 2+ MICROCYTOSIS (NORMAL)
[2021-07-11] MEDS ORDERED: IOPAMIDOL-300 100 ML VIAL ONE (16:17)
--- NOTE | 2021-07-11 16:47 | CT Report ---
PROCEDURE: Abdomen/Pelvis W INDICATIONS: IV only, abd issues, low hgb CONTRAST: IV CONTRAST: Isovue 300 ml: 100 PO CONTRAST: *NO PO CONTRAST TECHNIQUE: After the administration of contrast, 5 mm thick sections acquired from the diaphragms to the sym physis. 5 mm thick coronal and sagittal reformats were acquired. For radiation dose reduction, the following was used: automated exposure control, adjustment of mA and/or kV according to patient size . COMPARISON: None. FINDINGS: Image quality: Excellent. ABDOMEN: Lung bases: Lung bases are clear. Heart size is normal. Solid organs: Liver and spleen are normal in size and enhancement. Gallbladder contains a calcified gallstone without evidence of local inflammation. Biliary system is non dilated. Pancreas enhances normally. No adrenal nodules. Kidneys demonstrate normal size and enhancement, without hydronephro sis. Subcentimeter left renal hypodensity likely reflects cyst. Peritoneum and bowel: Bowel loops demonstrate normal wall thickness and caliber. No free fluid or a ir. Nonvisualized appendix, but no evidence of pericecal inflammation. Nodes and vessels: No retroperitoneal or mesenteric adenopathy by size criteria. Aorta and inferior vena cava are normal in size. Miscellaneous: No ventral hernias. PELVIS: Genitourinary: Bladder wall thickness is normal. Uterus is enlarged, consistent with fibroid uterus Miscellaneous: No inguinal hernias or adenopathy. Bones: No suspicious bony lesions. No vertebral body compression fractures. Degenerative disc dise ase and arthropathy results in severe central stenosis at L4-5. IMPRESSION: No acute CT abdomen and pelvis findings. Fibroid uterus and cystic change in both ovaries could be correlated with ultrasound Cholelithiasis without CT evidence of acute cholecystitis. Total degenerative disc disease and arthropathy results in severe central stenosis at L4-5 Reviewed by: Sunil Larry MD on 07/11/2021 3:46 PM [email or web address] Approved by: Sunil Larry MD on 07/11/2021 3:46 PM AKDT Station ID: [id number]
[2021-07-11] MEDS ORDERED: IOPAMIDOL-300 100 ML VIAL IVP ONE (18:45)
[2021-07-11] MEDS ORDERED: diphenhydrAMINE INJ 50 MG/ML VIAL IVP STA (18:45)
[2021-07-11 21:09] VITALS: BP 115/56
== END 2021-07-11 21:24 | disposition home or self-care (01) ==
LOC: ED 14:50
DX: D50.9 Iron deficiency anemia, unspecified (principal); D25.9 Leiomyoma of uterus, unspecified; R23.2 Flushing
CPT/HCPCS: 36415; 71045; 74177; 80053; 81001; 81025; 83540; 83690; 84466; 84484; 85025; 86850; 86900; 86901; 86920; 93005; 96374; 99284; 99285; J1200; P9016; Q9967; 81003; 87086

== ENCOUNTER 2021-11-02 10:32 | Outpatient (CLI) | payer MEDICAID | END 2021-11-02 10:33 | disposition critical access hospital (66) | LOC: EMS 10:32 | DX: N93.9 Abnormal uterine and vaginal bleeding, unspecified (principal); R53.1 Weakness | CPT/HCPCS: A0425; A0429; A0999 ==

== ENCOUNTER 2021-11-02 10:43 | Inpatient (IN) | payer MEDICAID ==
[~2021-11-02 10:43] MED LIST: ACETAMINOPHEN 500 MG TABLET PO ONE; CELECOXIB 100 MG CAPSULE PO ONE; GABAPENTIN 100 MG CAPSULE PO ONE; PHENAZOPYRIDINE 100 MG TABLET PO ONE
[2021-11-02] MEDS ORDERED: SODIUM CHLORIDE 0.9% 1,000 ML IV STA (10:52)
[2021-11-02] MEDS ORDERED: MORPHINE 2 MG/ML CARPUJECT IVP STA ×3 (11:07→18:29)
[2021-11-02 11:28] LABS: BASOPHILS % (AUTO) 0.2 %; LYMPHOCYTES % (AUTO) 4.9 %; MEAN CORPUSCULAR HEMOGLOBIN 14.4 pg (27.0-31.0); MEAN CORPUSCULAR VOLUME 62.4 fL (81.0-99.0); MEAN PLATELET VOLUME 11.1 fL (7.9-10.8); MONOCYTES # (AUTO) 0.9 10^3/uL (0.0-1.0); MONOCYTES % (AUTO) 4.7 %; NEUTROPHILS # (AUTO) 17.5 10^3/uL (1.5-6.6); NEUTROPHILS % (AUTO) 89.3 %; NRBC ABSOLUTE COUNT (AUTO) 0.25 x10^3/uL; NUCLEATED RED BLOOD CELLS AUTO 1.3 /100WBC; PLT - PLATELET COUNT 483 10^3/uL (130-450); RED BLOOD COUNT 2.02 10^6/uL (4.20-5.40); RED CELL DISTRIBUTION WIDTH 21.5 % (12.0-15.0); WHITE BLOOD COUNT 19.6 x10^3/uL (4.8-10.8)
[2021-11-02 11:29] LABS: ALBUMIN/GLOBULIN RATIO 0.9 (1.0-2.2); BILIRUBIN,TOTAL 0.4 mg/dL (0.2-1.0); CALCIUM 8.2 mg/dL (8.5-10.3); CREATININE 1.1 mg/dL (0.4-1.0); POTASSIUM 4.2 mmol/L (3.5-5.0); TOTAL PROTEIN 6.5 g/dL (6.7-8.2)
[2021-11-02 11:39] LABS: HGB - HEMOGLOBIN 2.9 g/dL (12.0-16.0)
[2021-11-02 11:40] LABS: HCT - HEMATOCRIT 12.6 % (37.0-47.0)
[2021-11-02 12:03] LABS: B. PARAPERTUSSIS- RESP PCR PAN NOT DETECTED; B. PERTUSSIS- RESP PCR PANEL NOT DETECTED; C. PNEUMONIAE- RESP PCR PANEL NOT DETECTED; CORONAVIRUS 229E-RESP PCR NOT DETECTED; CORONAVIRUS HKU1-RESP PCR NOT DETECTED; CORONAVIRUS NL63-RESP PCR NOT DETECTED; CORONAVIRUS OC43-RESP PCR NOT DETECTED; HUMAN METAPNEUMOVIRUS NOT DETECTED; INFLUENZA A- RESP PCR PANEL NOT DETECTED; INFLUENZA B - RESP PCR PANEL NOT DETECTED; M. PNEUMONIAE- RESP PCR PANEL NOT DETECTED; PARAINFLUENZA VIRUS 1 NOT DETECTED; PARAINFLUENZA VIRUS 2 NOT DETECTED; PARAINFLUENZA VIRUS 3 NOT DETECTED; PARAINFLUENZA VIRUS 4 NOT DETECTED; RHINOVIRUS/ENTEROVIRUS NOT DETECTED; RSV- RESP PCR PANEL NOT DETECTED; SARS-CoV-2 -RESP PCR PANEL NOT DETECTED
[2021-11-02 12:10] LABS: PLATELET MORPHOLOGY NORMAL APPEARANCE (NORMAL); SLIDE REVIEW? Indicated
[2021-11-02 12:11] LABS: PLATELET ESTIMATE, MANUAL INCREASED (>450,000) (NORMAL)
[2021-11-02 12:12] LABS: WBC MORPHOLOGY (MULTIPLE) NORMAL APPEARANCE (NORMAL)
[2021-11-02 12:33] LABS: INR 1.1 (0.8-1.2); PT - PROTHROMBIN TIME 12.2 secs (9.9-12.6)
[2021-11-02 12:41] LABS: HCG,QUALITATIVE BLOOD NEGATIVE
--- NOTE | 2021-11-02 12:44 | ED Physician Documentation ---
History of Present Illness - Stated complaint Stated Complaint: ANEMIA/WEAKNESS - Chief complaint Chief Complaint: General - History obtained from History obtained from: Patient, EMS - Additonal information Additional information: Comes emergency department chief complaint of weakness and heavy vaginal bleeding. She states that she has been having recurrent episodes of very heavy vaginal bleeding with some that bleeding in between. She states that her has hemoglobin monitor at home and that it was not registering today, which means that her hemoglobin is less than 7. The patient states she has been through this multiple times and told she has fibroids, but she has been resistant to the idea of getting a hysterectomy. She states she feels dizzy today and mildly short of breath. No chest pain. She states that she is not had any fevers. She has some abdominal and pelvic cramping. Patient is otherwise fairly healthy as far she knows. She states she takes no medications except for control pills which she was prescribed to help with the bleeding via a telehealth visit with [employer]. However, this does not seem to have helped. Review of the patient's records reveals that she has been seen several times this year for the same problem with hemoglobins as low as 4 to sixes. Patient has been resistant to blood transfusion previously, secondary to concerns that the person who donated the blood might be vaccinated for Covid, and she is worried about the vaccine. She also has neglected to follow-up with [employer] previously, because she was afraid of being told she needed a hysterectomy. Patient states she is not . She is having low abdominal cramping and pain. No other complaints at this time. Review of Systems Ten Systems: 10 systems reviewed and negative Constitutional: reports: Reviewed and negative Eyes: reports: Reviewed and negative Ears: reports: Reviewed and negative Nose: reports: Reviewed and negative Throat: reports: Reviewed and negative Cardiac: reports: Reviewed and negative Respiratory: reports: Reviewed and negative GI: reports: Abdominal Pain : reports: Vaginal bleeding Skin: reports: Reviewed and negative Musculoskeletal: reports: Reviewed and negative Neurologic: reports: Reviewed and negative Psychiatric: reports: Reviewed and negative Endocrine: reports: Reviewed and negative Immunocompromised: reports: Reviewed and negative PD PAST MEDICAL HISTORY - Past Surgical History Past Surgical History: No - Present Medications Home Medications: Ambulatory Orders Medication Instructions Recorded Confirmed Ferrous Sulfate 2 tab PO DAILY 11/02/21 11/02/21 - Allergies Allergies/Adverse Reactions: Allergies Allergy/AdvReac Type Severity Reaction Status Date / Time Penicillins Allergy Anaphylaxis Verified 11/02/21 10:57 - Social History Does the pt smoke?: No Smoking Status: Never smoker Does the pt drink ETOH?: No Does the pt have substance abuse?: Yes Substance Use and Type: Marijuana - Immunizations Immunizations are current?: Yes - POLST Patient has POLST: No PD ED PE NORMAL - Vitals Vital signs reviewed: Yes - General General: Alert and oriented X 3, Well developed/nourished, Other (Patient is alert, extremely pale, and appears in mild distress.) - HEENT HEENT: Atraumatic, PERRL, EOMI, Moist mucous membranes, Other (Extreme pallor of lips and tongue.) - Neck Neck: Supple, no meningeal sign - Cardiac Cardiac: RRR, No murmur, Strong equal pulses - Respiratory Respiratory: No respiratory distress, Clear bilaterally - Abdomen Abdomen: Soft, Other (Moderately obese abdomen, diffusely tender, Especially across lower abdomen.) - Derm Derm: Warm and dry, No rash, Other (Marked pallor, especially of lips, tongue, and digits.) - Extremities Extremities: No deformity, No edema, No calf tenderness / cord - Neuro Neuro: Alert and oriented X 3, 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, Normal speech, Other (Grossly intact) - Psych Psych: Normal mood, Normal affect Results - Vitals Vitals: Vital Signs - 24 hr 11/02/21 11/02/21 11/02/21 10:43 11:25 11:30 Temperature 36.3 C L Heart Rate 103 H 97 104 H Respiratory 16 21 20 Rate Blood Pressure 117/44 L 117/43 L 114/41 L O2 Saturation 92 98 100 11/02/21 11/02/21 11/02/21 11:47 11:50 11:55 Temperature 36.3 C L 36.3 C L 36.2 C L Heart Rate 99 101 H 108 H Respiratory 23 21 24 Rate Blood Pressure 114/41 L 141/41 H 107/53 L O2 Saturation 100 11/02/21 11/02/21 11/02/21 12:00 12:15 12:30 Temperature 36.2 C L 37.1 C Heart Rate 98 107 H 101 H Respiratory 24 26 H 22 Rate Blood Pressure 107/53 L 119/57 L 127/66 O2 Saturation 100 100 1211/02/21 11/02/21 12:32 12:51 13:01 Temperature 36.7 C 36.8 C 36.7 C Heart Rate 90 96 Respiratory 25 H 20 Rate Blood Pressure 127/52 L 120/50 L O2 Saturation 100 100 11/02/21 11/02/21 11/02/21 13:10 13:24 13:30 Temperature 37.1 C 36.3 C L Heart Rate 105 H 96 94 Respiratory 23 17 16 Rate Blood Pressure 120/50 L 121/58 L 122/60 O2 Saturation 100 11/02/21 11/02/21 11/02/21 13:38 14:00 14:30 Temperature 36.9 C Heart Rate 93 101 H 94 Respiratory 21 19 18 Rate Blood Pressure 108/46 L 114/61 131/67 H O2 Saturation 100 100 11/02/21 11/02/21 11/02/21 15:00 15:15 15:28 Temperature 36.9 C 36.9 C 36.8 C Heart Rate 89 89 91 Respiratory 20 22 22 Rate Blood Pressure 121/63 121/50 L 116/66 O2 Saturation 100 11/02/21 11/02/21 11/02/21 15:37 15:51 16:00 Temperature 36.8 C 36.9 C Heart Rate 88 87 87 Respiratory 25 H 23 21 Rate Blood Pressure 111/66 112/66 117/58 L O2 Saturation 100 100 11/02/21 11/02/21 11/02/21 18:20 19:02 19:09 Temperature 36.9 C 36.8 C Heart Rate 82 84 82 Respiratory 18 19 18 Rate Blood Pressure 116/53 L 116/69 116/59 L O2 Saturation 100 11/02/21 11/02/21 11/02/21 19:14 19:30 20:06 Temperature 36.8 C 36.7 C Heart Rate 77 82 83 Respiratory 18 17 22 Rate Blood Pressure 115/62 113/60 119/56 L O2 Saturation 100 100 Oxygen O2 Source Room air - Labs Labs: Laboratory Tests 11/02/21 11/02/21 11/02/21 10:54 11:00 11:00 WBC 19.6 H RBC 2.02 L Hgb 2.9 L* Hct 12.6 L* MCV 62.4 L MCH 14.4 L MCHC 23.0 L RDW 21.5 H Plt Count 483 H MPV 11.1 H Neut # (Auto) 17.5 H Lymph # (Auto) 1.0 L [place] # (Auto) 0.9 Eos # (Auto) 0.0 Baso # (Auto) 0.0 Absolute Nucleated RBC 0.25 Nucleated RBC % 1.3 Manual Slide Review Indicated WBC Morphology NORMAL APPEARANCE Platelet Estimate INCREASED (>450,000) Platelet Morphology NORMAL APPEARANCE RBC Morph Micro Appear 1+ MICROCYTOSIS PT INR Sodium 130 L Potassium 4.2 Chloride 102 Carbon Dioxide 15 L Anion Gap 13.0 BUN 10 Creatinine 1.1 H Estimated GFR (MDRD) 53 L Glucose 279 H Calcium 8.2 L Total Bilirubin 0.4 AST 30 ALT 29 Alkaline Phosphatase 78 Total Protein 6.5 L Albumin 3.0 L Globulin 3.5 Albumin/Globulin Ratio 0.9 L Lipase 23 Serum HCG, Qual Nasal Adenovirus (PCR) NOT DETECTED Nasal B. parapertussis DNA (PCR) NOT DETECTED Nasal Coronavir 229E PCR NOT DETECTED Nasal Coronavir HKU1 PCR NOT DETECTED Nasal Coronavir NL63 PCR NOT DETECTED Nasal Coronavir OC43 PCR NOT DETECTED Nasal Enterovir/Rhinovir PCR NOT DETECTED Nasal Influenza B PCR NOT DETECTED Nasal Influenza A PCR NOT DETECTED Nasal Parainfluen 1 PCR NOT DETECTED Nasal Parainfluen 2 PCR NOT DETECTED Nasal Parainfluen 3 PCR NOT DETECTED Nasal Parainfluen 4 PCR NOT DETECTED Nasal RSV (PCR) NOT DETECTED Nasal B.pertussis DNA PCR NOT DETECTED Nasal C.pneumoniae (PCR) NOT DETECTED Jung Human Metapneumo PCR NOT DETECTED Nasal M.pneumoniae (PCR) NOT DETECTED Nasal SARS-CoV-2 (PCR) NOT DETECTED Blood Type Antibody Screen Crossmatch IS Only 11/02/21 11/02/21 11/02/21 11:00 11:00 11:00 WBC RBC Hgb Hct MCV MCH MCHC RDW Plt Count MPV Neut # (Auto) Lymph # (Auto) [place] # (Auto) Eos # (Auto) Baso # (Auto) Absolute Nucleated RBC Nucleated RBC % Manual Slide Review WBC Morphology Platelet Estimate Platelet Morphology RBC Morph Micro Appear PT 12.2 INR 1.1 Sodium Potassium Chloride Carbon Dioxide Anion Gap BUN Creatinine Estimated GFR (MDRD) Glucose Calcium Total Bilirubin AST ALT Alkaline Phosphatase Total Protein Albumin Globulin Albumin/Globulin Ratio Lipase Serum HCG, Qual NEGATIVE Nasal Adenovirus (PCR) Nasal B. parapertussis DNA (PCR) Nasal Coronavir 229E PCR Nasal Coronavir HKU1 PCR Nasal Coronavir NL63 PCR Nasal Coronavir OC43 PCR Nasal Enterovir/Rhinovir PCR Nasal Influenza B PCR Nasal Influenza A PCR Nasal Parainfluen 1 PCR Nasal Parainfluen 2 PCR Nasal Parainfluen 3 PCR Nasal Parainfluen 4 PCR Nasal RSV (PCR) Nasal B.pertussis DNA PCR Nasal C.pneumoniae (PCR) Jung Human Metapneumo PCR Nasal M.pneumoniae (PCR) Nasal SARS-CoV-2 (PCR) Blood Type AB POSITIVE Antibody Screen NEGATIVE Crossmatch IS Only See Detail 11/02/21 17:30 WBC 13.4 H RBC 2.89 L Hgb 5.9 L* Hct 19.8 L* MCV 68.5 L MCH 20.4 L MCHC 29.8 L RDW 24.6 H Plt Count 288 MPV 10.1 Neut # (Auto) 11.5 H Lymph # (Auto) 1.0 L [place] # (Auto) 0.7 Eos # (Auto) 0.0 Baso # (Auto) 0.0 Absolute Nucleated RBC 0.08 Nucleated RBC % 0.6 Manual Slide Review WBC Morphology Platelet Estimate Platelet Morphology RBC Morph Micro Appear PT INR Sodium Potassium Chloride Carbon Dioxide Anion Gap BUN Creatinine Estimated GFR (MDRD) Glucose Calcium Total Bilirubin AST ALT Alkaline Phosphatase Total Protein Albumin Globulin Albumin/Globulin Ratio Lipase Serum HCG, Qual Nasal Adenovirus (PCR) Nasal B. parapertussis DNA (PCR) Nasal Coronavir 229E PCR Nasal Coronavir HKU1 PCR Nasal Coronavir NL63 PCR Nasal Coronavir OC43 PCR Nasal Enterovir/Rhinovir PCR Nasal Influenza B PCR Nasal Influenza A PCR Nasal Parainfluen 1 PCR Nasal Parainfluen 2 PCR Nasal Parainfluen 3 PCR Nasal Parainfluen 4 PCR Nasal RSV (PCR) Nasal B.pertussis DNA PCR Nasal C.pneumoniae (PCR) Jung Human Metapneumo PCR Nasal M.pneumoniae (PCR) Nasal SARS-CoV-2 (PCR) Blood Type Antibody Screen Crossmatch IS Only - Rads (name of study) Pelvic ultrasound Radiology: Final report received, See rad report MR pelvis Radiology: Final report received, EMP read indepedently, See rad report (fibroids) PD MEDICAL DECISION MAKING - ED course Complexity details: reviewed old records, reviewed results, re-evaluated patient, considered differential, d/w patient ED course: The patient was worked up with laboratory studies and in the meantime, given a liter of IV fluid. I type and screen with order to type and cross had already been sent, but the patient's hemoglobin came back shockingly low at 2.9. At this point in time, given that the patient did have some hemodynamic changes associated with her anemia, I ordered a unit of unmatched blood to be given while we were waiting for matched blood. I spoke with Dr. Costa, who did come see the patient in the emergency department. Her plan was initially to take the patient straight to the operating room with plan for admission after that. Patient was agreeable to the plan and actually expressing interest in having hysterectomy now. However, on further eval, there was concern for possible malignancy, and additionally, anesthesia wanted a hemoglobin of at least 7. As such, we did continue transfusing, and pt was ultimately sent for pelvic MRI at Dr. Csota's request. This did demonstrate fibroids, considerably bigger than on pt's last US in March of 2020. Her repeat HGB after 2.5 units of blood was 5.9. On re-eval, pt was looking much better. She had better color, and was more alert, laughing and talking. Her HR had normalized, and blood pressure had remained normal throughout her stay. She had received small doses of morphine occasionally for pain. I did discuss the case with Dr. Costa again, and she decided to admit the pt to the floor overnight, with plan for hysterectomy tomorrow. She stated the pt could eat, so I informed nursing staff and pt was fed. Departure - Departure Disposition: ED Place in Observation Clinical Impression: Vaginal bleeding Profound anemia Qualifiers: Anemia type: other cause Other causes of anemia: acute posthemorrhagic Qualified Code(s): D62 - Acute posthemorrhagic anemia Condition: Critical Discharge Date/Time: 11/02/21 20:50
--- NOTE | 2021-11-02 13:15 | Ultrasound Report ---
PROCEDURE: Pelvic Complete INDICATIONS: FIBROIDS, HEMORRAGE TECHNIQUE: Real-time transabdominal scanning was performed of the pelvic organs, with image documentation. COMPARISON: Pelvic ultrasound 04/16/2020 FINDINGS: Uterus: Uterus is enlarged in size at 14.4 x 6.8 x 7.2 cm. volume 369 cc. Uterus is anteverted withi n the mid posterior region there is a focus of heterogeneous echogenicity measuring approximately 7.3 x 5.2 x 4.5 cm compared to approximately 3.1 x 3.0 x 2.5 cm. It is noted these areas are poorly visu alized secondary to artifact. In the mid fundal location there is a 2.7 x 2.2 x 2.8 cm heterogeneous focus measured with previous measurements of 2.7 x 2.5 x 2.5 cm. Endometrium measures 6 mm in combined thickness. Mild fluid is noted in the endometrial canal. Ovaries: Right ovary measures 4.4 x 3.4 x 1.6 cm, volume 12.5 cc. Left ovary measures 2.8 x 2.7 x 2. 6 cm, volume 10.3 cc. Other: No free pelvic fluid. IMPRESSION: 1. Poorly visualized foci of increased echogenicity within the uterus. While these could represent ar eas of adenomyosis, focal fibroids cannot be definitively excluded. There is prominent artifact limit ing evaluation. However, it does appear more prominent particularly the focus suggestive of fibroid. As previously noted, further evaluation with MRI would be helpful for further evaluation. Reviewed by: Nkechi Finley MD on 11/02/2021 1:14 PM PST Approved by: Nkechi Finley MD on 11/02/2021 1:14 PM PST Station ID: [id number]
[2021-11-02] MEDS ORDERED: GADOBUTROL 10 MMOL/10 ML VIAL ONE (16:07)
--- NOTE | 2021-11-02 17:26 | CONSULTATION NOTE ---
Referring Provider Name of Referring Provider:: Dr. Durbin Consult Date: 11/02/21 Chief Complaint - Chief Complaint Chief Complaint: Dysfunctional uterine bleeding/hemorrhage History of Present Illness - Admitted From Admitted From:: ER - History Obtained From Records Reviewed: [facility] History obtained from: Patient - History of Present Illness HPI Comment/Other: ID: Patient is a 46 yo here with acute blood loss anemia in the setting of DUB 2/2 uterine mass. HPI: Patient reports that she has had eavy vaginal bleeding for about 18 months. Most recently, she had heavy vaginal bleeding on Tuesday evening (10/30/21) through to Tuesday morning. She passed "a bucket of blood". Bleeding stopped Tuesday day until Tuesday (11/01/21) pm. She soaked "5 diapers with blood" and then passed out this am. One random day last week, she passed a "baby sized cl ot". She started COCs about 6 weeks ago after having a telehealth visit. She was having terrible cramps that ached from her chest to her anus and felt like she was passing a placenta. Pain improved with COCs. Bleeding has been going on fore more than a year. Has had 2 presentations for transfusions prior to current. States she had light menses until 2019. In the fall of 2019, she started having heavy period that were high volume for 3 days. Review of medical records show that she had a pelvic us on 04/16/2020 that showed a 3 cm submucosal fibroid. Uterus measured 10.3x5.5x5.8 cm with a volume of 171.2. This was read as normal volume. She was counseled to follow-up with OBGYN but did not. Patient could not tolerate a TVUS today given mildly obtunded state 2/2 severe anemia. TAUS showed uterine enlargement but imaging was suboptimal. Pelvic MRI recommended and is pending. Patient bought an [employer] H&H processor for her home. She states she runs a Hgb 8-9 and drops below 7 when she has her menses. She has been taking iron and crushed liver pills as well as a yellow dockroot to control bleeding. States she checks her blood sugars at home and they are normal. says they do not check that often. Her BG was reported to be 240 in ambulance. It was 279 with intake labs. FH remarkable for father with extensive liver hemangioma that caused internal bleeding, with a low Hgb of 2. Eventually had heart failure. while awaiting liver transplant. Mother had a virus in childhood that led to heart disease. Mother also while awaiting transplant. Autn with DM. Patient reports 4 pregnancies and 1 . Cone biopsy at age 20 with normal pap smears since. Reports that she had a pap smear about 3 years ago, prior to moving to [facility]. No STIs. No SA since September. No dyspareunia. Has been isolating at home due to her immune systems compromised by severe anemia. Reports first transfusion was in 12/18. Friend reports 2nd transfusion was on her birthday ([birth year]). Patient notes her recall is impaired by her state of anemia. States she also stopped eating meat. PMH: anemia PSH: cone biopsy at 20 lump removed under her eye in childhood arm broken at 8 months of age OBHX: , in 1997 Cone biopsy at 20 yrs, normal paps since No STIs. SA with skilled nursing male partner SOC HX: Lives in [place] with her Not working at present. 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 NAD HEAD: NCAT EYES: No scleral icterus. Pale conjunctiva CV: RR RESP: normal effort ABD: S&NT/ND PSYCH: appropriate affect NEURO: mildly obtunded with poor recall patient attributes to anemia EXT: WWP PELVIC: NEFG. Normal BSUMA. No active passage of blood from vaginal vault. Cervix effaced about 90% and dilated to 3-4 cm with solid, smooth mass protruding. Edges of mass not palpable, not actively delivering through cervix . Texture softer than fibroid. No sarah bleeding on glove. PELVIC MRI pending. A/P: 46 yo with severe acute blood loss anemia 2/2 uterine mass. HEMORRHAGE: Bleeding is slowed at present -has received 2 units PRBCs with baseline Hgb 2.9 -Reviewed imaging with DI. Increase in size from 04/16/20 us which showed 3 cm submucosal fibroid. Exam indicated at least 4 cm mass protruding through cervix. -Discussed hysteroscopy D&C with possible morcellation. Concern about uncontrolled bleeding in OR and possibility of need to convert to emergent hysterectomy -Reviewed situation with [facility], who recommend Hgb 7 prior to starting any case with blood immediately available. Will likely need 4 units PRBC today to reach goal. Would recommend 1 unit FFP given volume of pRBCs. -Discussed that rapid grwoth over 18 months along with severity of bleeding c/f malignant or premalignant process. Obtaining biopsy may also incur more bleeding. -Will review MRI results with DI and possibly curbside Glove Pairer Onc with recommendations for surgical approach. Transfer a possibility pending results. HYPERGLYCEMIA: Patient denies hx of DN but has also not engaged medical care in 3 years. -May reflect stress of physical condition. Recommend reassessment and possible adjustment to normalize blood sugar for surgical intervention DISPO and next steps pending stabilization of H&H and interpretation of MRI Considering admit for obs overnight with possible plan for hysterectomy in am I personally reviewed us images from 04/16/20 and 11/02/21 as well as MRI images History - Past Medical History MRSA Hx?: No - POLST Patient has POLST: No Meds/Allgy - Home Medications Home Medications: Ambulatory Orders Medication Instructions Recorded Confirmed Ferrous Sulfate 2 tab PO DAILY 11/02/21 11/02/21 - Allergies Allergies/Adverse Reactions: Allergies Allergy/AdvReac Type Severity Reaction Status Date / Time Penicillins Allergy Anaphylaxis Verified 11/02/21 10:57 Exam - Vital Signs Vital Signs: Vital Signs x48h Temp Pulse Resp BP Pulse Ox 11/02/21 16:00 87 21 117/58 L 100 11/02/21 15:51 98.4 F 87 23 112/66 11/02/21 15:37 98.2 F 88 25 H 111/66 100 11/02/21 15:28 98.2 F 91 22 116/66 11/02/21 15:15 98.4 F 89 22 121/50 L 11/02/21 15:00 98.4 F 89 20 121/63 100 11/02/21 14:30 94 18 131/67 H 100 11/02/21 14:00 101 H 19 114/61 100 11/02/21 13:38 98.4 F 93 21 108/46 L 11/02/21 13:30 94 16 122/60 100 11/02/21 13:24 97.3 F L 96 17 121/58 L 11/02/21 13:10 98.8 F 105 H 23 120/50 L 11/02/21 13:01 98.1 F 96 20 120/50 L 100 11/02/21 12:51 98.2 F 90 25 H 127/52 L 100 11/02/21 12:32 98.1 F 11/02/21 12:30 101 H 22 127/66 100 11/02/21 12:15 98.8 F 107 H 26 H 119/57 L 11/02/21 12:00 97.2 F L 98 24 107/53 L 100 11/02/21 11:55 97.2 F L 108 H 24 107/53 L 11/02/21 11:50 97.3 F L 101 H 21 141/41 H 11/02/21 11:47 97.3 F L 99 23 114/41 L 100 11/02/21 11:30 104 H 20 114/41 L 100 11/02/21 11:25 97 21 117/43 L 98 11/02/21 10:43 97.3 F L 103 H 16 117/44 L 92 Conclusion/Plan - Lab Results Fish Bones: 11/02/21 17:30 11/02/21 11:00
[2021-11-02] MEDS ORDERED: GADOBUTROL 10 MMOL/10 ML VIAL IVP ONE (17:41)
[2021-11-02 17:42] LABS: BASOPHILS % (AUTO) 0.3 %; LYMPHOCYTES % (AUTO) 7.5 %; MEAN CORPUSCULAR HEMOGLOBIN 20.4 pg (27.0-31.0); MEAN CORPUSCULAR HGB CONC 29.8 g/dL (32.0-36.0); MEAN CORPUSCULAR VOLUME 68.5 fL (81.0-99.0); MEAN PLATELET VOLUME 10.1 fL (7.9-10.8); MONOCYTES # (AUTO) 0.7 10^3/uL (0.0-1.0); MONOCYTES % (AUTO) 4.9 %; NEUTROPHILS # (AUTO) 11.5 10^3/uL (1.5-6.6); NEUTROPHILS % (AUTO) 86.1 %; NRBC ABSOLUTE COUNT (AUTO) 0.08 x10^3/uL; NUCLEATED RED BLOOD CELLS AUTO 0.6 /100WBC; PLT - PLATELET COUNT 288 10^3/uL (130-450); RED BLOOD COUNT 2.89 10^6/uL (4.20-5.40); RED CELL DISTRIBUTION WIDTH 24.6 % (12.0-15.0); WHITE BLOOD COUNT 13.4 x10^3/uL (4.8-10.8)
[2021-11-02 17:47] LABS: HGB - HEMOGLOBIN 5.9 g/dL (12.0-16.0)
[2021-11-02 17:48] LABS: HCT - HEMATOCRIT 19.8 % (37.0-47.0)
--- NOTE | 2021-11-02 18:46 | MRI Report ---
PROCEDURE: Pelvis W/WO INDICATIONS: uterine masses with hemorrhage CONTRAST: IV CONTRAST: Gadavist ml: 9 TECHNIQUE: Coronal ultra fast SE, sagittal breath-hold T2 FSE; axial T1 FSE with and without fat saturation thro ugh the pelvis. Optional long- and short-axis uterine nonbreath-hold T2 FSE through the uterus. Sag ittal or axial dynamic ultra fast GE during administration of contrast. Post-contrast axial or coron al ultra fast GE / 2-D spoiled GE with fat saturation from the iliac crests to the symphysis. Option al diffusion weighted imaging and ADC may be performed. COMPARISON: Ultrasound 11/02/2021, CT abdomen/pelvis 07/11/2021. FINDINGS: Image quality: There is motion artifact limiting evaluation. Uterus: Uterus is enlarged with multiple uterine fibroids. These include a large dorsal fibroid cent ered in the myometrium within the lower uterine segment measuring up to 7.2 x 6.4 x 5.5 cm. This appe ars heterogeneous with internal fluid components likely reflecting cystic degeneration of a fibroid. The mass extends to the endometrium suggestive of a submucosal component. There is a right intramural fibroid in the fundus measuring up to 3.4 x 2.8 x 3.7 cm. There is also mild irregular thickening of the junctional zone distally suggestive of adenomyosis. Adnexa: The ovaries are normal in size, without suspicious adnexal masses. There are small thin-wal led cyst within the ovaries bilaterally consistent with prominent follicles. Urinary system: Bladder is partially distended. Distal ureters are non distended. Urethra appears n ormal in morphology. Nodes and vessels: No pelvic or inguinal adenopathy by size criteria. Iliac vessels are normal in s ize. Bowel and peritoneum: No pathologic free pelvic fluid. Inferior colon and small bowel loops are nor mal in caliber. Soft tissues: No inguinal hernias. Bones: Visualized osseous structures demonstrate no suspicious focal lesions. IMPRESSION: 1. Large heterogeneous mass in the dorsal myometrium within the lower uterine segment with internal f luid component likely reflect cystic or hemorrhagic degeneration of a fibroid. There is apparent exte nsion to the endometrium suggestive of a submucosal component. No definite aggressive features such a s extrauterine invasion to suggest a sarcoma. 2. Smaller intramural fibroid demonstrated within the fundal myometrium. 3. Indistinct thickening of the junctional zone in the fundus suggestive of adenomyosis. Reviewed by: Deon Weir MD on 11/02/2021 5:44 PM INDIO Approved by: Deon Weir MD on 11/02/2021 5:44 PM ME Station ID: [id number]
--- NOTE | 2021-11-02 20:25 | PROVIDER PROGRESS NOTE ---
Subjective - Prog Note Date Prog Note Date: 11/02/21 Prog Note Time: 20:20 - Subjective Subjective: Reviewed pelvic MRI with patient. Will proceed with hysterectomy in am Admit to observation overnight for surgical optimization with continued transfusion with goal of minimum hgb 7.0 prior to procedure Type and cross 2 units for procedure Will also optimize BG levels to keep below 200 for preoperative period. Premedications for ERAS submitted: Acetaminophen 1000 mg po x1 at 5:30 am (2 hours prior to procedure) Celecoxib 400 mg po x 1 at 5:30 am (2 hours prior to procedure) Gabapentin 300 mg po x1 at 5:30 am (2 hours prior to procedure) Pyridium 200 mg po x1 at 6:30 am for cystoscopy preparation Cefazolin 2g IV OCTOR Regular diet until midnight. Then NPO after midnight -Per ERAS, ok to have clears until 2 hour prior to procedure. Anticipate overnight stay post procedure. Objective - Vital Signs/Intake & Output Vital Signs: Vital Signs x48h Temp Pulse Resp BP Pulse Ox 11/02/21 20:06 83 22 119/56 L 100 11/02/21 19:30 98.1 F 82 17 113/60 11/02/21 19:14 98.2 F 77 18 115/62 100 11/02/21 19:09 98.2 F 82 18 116/59 L 11/02/21 19:02 98.4 F 84 19 116/69 11/02/21 18:20 82 18 116/53 L 100 11/02/21 16:00 87 21 117/58 L 100 11/02/21 15:51 98.4 F 87 23 112/66 11/02/21 15:37 98.2 F 88 25 H 111/66 100 11/02/21 15:28 98.2 F 91 22 116/66 11/02/21 15:15 98.4 F 89 22 121/50 L 11/02/21 15:00 98.4 F 89 20 121/63 100 11/02/21 14:30 94 18 131/67 H 100 11/02/21 14:00 101 H 19 114/61 100 11/02/21 13:38 98.4 F 93 21 108/46 L 11/02/21 13:30 94 16 122/60 100 11/02/21 13:24 97.3 F L 96 17 121/58 L 11/02/21 13:10 98.8 F 105 H 23 120/50 L 11/02/21 13:01 98.1 F 96 20 120/50 L 100 11/02/21 12:51 98.2 F 90 25 H 127/52 L 100 11/02/21 12:32 98.1 F 11/02/21 12:30 101 H 22 127/66 100 Intake & Output: Intake & Output 10/30/21 10/31/21 11/01/21 11/02/21 23:59 23:59 23:59 23:59 Intake Total 2049 Balance 2049 - Lab Results Fish Bones: 11/02/21 17:30 11/02/21 11:00 Other Labs: Lab Results x24hrs 11/02/21 11/02/21 11/02/21 Range/Units 17:30 11:00 11:00 WBC 13.4 H (4.8-10.8) x10^3/uL RBC 2.89 L (4.20-5.40) 10^6/uL Hgb 5.9 L* (12.0-16.0) g/dL Hct 19.8 L* (37.0-47.0) % MCV 68.5 L (81.0-99.0) fL MCH 20.4 L (27.0-31.0) pg MCHC 29.8 L (32.0-36.0) g/dL RDW 24.6 H (12.0-15.0) % Plt Count 288 (130-450) 10^3/uL MPV 10.1 (7.9-10.8) fL Neut # (Auto) 11.5 H (1.5-6.6) 10^3/uL Lymph # (Auto) 1.0 L (1.5-3.5) 10^3/uL Douglas # (Auto) 0.7 (0.0-1.0) 10^3/uL Eos # (Auto) 0.0 (0.0-0.7) 10^3/uL Baso # (Auto) 0.0 (0.0-0.1) 10^3/uL Absolute Nucleated RBC 0.08 x10^3/uL Nucleated RBC % 0.6 /100WBC Manual Slide Review WBC Morphology (NORMAL) Platelet Estimate (NORMAL) Platelet Morphology (NORMAL) RBC Morph Micro Appear (NORMAL) PT 12.2 (9.9-12.6) secs INR 1.1 (0.8-1.2) Sodium (135-145) mmol/L Potassium (3.5-5.0) mmol/L Chloride (101-111) mmol/L Carbon Dioxide (21-32) mmol/L Anion Gap (6-13) BUN (6-20) mg/dL Creatinine (0.4-1.0) mg/dL Estimated GFR (MDRD) (>89) Glucose (70-100) mg/dL Calcium (8.5-10.3) mg/dL Total Bilirubin (0.2-1.0) mg/dL AST (10-42) IU/L ALT (10-60) IU/L Alkaline Phosphatase (42-121) IU/L Total Protein (6.7-8.2) g/dL Albumin (3.2-5.5) g/dL Globulin (2.1-4.2) g/dL Albumin/Globulin Ratio (1.0-2.2) Lipase (22-51) U/L Serum HCG, Qual NEGATIVE Nasal Adenovirus (PCR) Nasal B. parapertussis DNA (PCR) Nasal Coronavir 229E PCR Nasal Coronavir HKU1 PCR Nasal Coronavir NL63 PCR Nasal Coronavir OC43 PCR Nasal Enterovir/Rhinovir PCR Nasal Influenza B PCR Nasal Influenza A PCR Nasal Parainfluen 1 PCR Nasal Parainfluen 2 PCR Nasal Parainfluen 3 PCR Nasal Parainfluen 4 PCR Nasal RSV (PCR) Nasal B.pertussis DNA PCR Nasal C.pneumoniae (PCR) Jung Human Metapneumo PCR Nasal M.pneumoniae (PCR) Nasal SARS-CoV-2 (PCR) Blood Type Antibody Screen Crossmatch IS Only 11/02/21 11/02/21 11/02/21 Range/Units 11:00 11:00 11:00 WBC 19.6 H (4.8-10.8) x10^3/uL RBC 2.02 L (4.20-5.40) 10^6/uL Hgb 2.9 L* (12.0-16.0) g/dL Hct 12.6 L* (37.0-47.0) % MCV 62.4 L (81.0-99.0) fL MCH 14.4 L (27.0-31.0) pg MCHC 23.0 L (32.0-36.0) g/dL RDW 21.5 H (12.0-15.0) % Plt Count 483 H (130-450) 10^3/uL MPV 11.1 H (7.9-10.8) fL Neut # (Auto) 17.5 H (1.5-6.6) 10^3/uL Lymph # (Auto) 1.0 L (1.5-3.5) 10^3/uL Douglas # (Auto) 0.9 (0.0-1.0) 10^3/uL Eos # (Auto) 0.0 (0.0-0.7) 10^3/uL Baso # (Auto) 0.0 (0.0-0.1) 10^3/uL Absolute Nucleated RBC 0.25 x10^3/uL Nucleated RBC % 1.3 /100WBC Manual Slide Review Indicated WBC Morphology NORMAL APPEARANCE (NORMAL) Platelet Estimate INCREASED (>450,000) (NORMAL) Platelet Morphology NORMAL APPEARANCE (NORMAL) RBC Morph Micro Appear 1+ MICROCYTOSIS (NORMAL) PT (9.9-12.6) secs INR (0.8-1.2) Sodium 130 L (135-145) mmol/L Potassium 4.2 (3.5-5.0) mmol/L Chloride 102 (101-111) mmol/L Carbon Dioxide 15 L (21-32) mmol/L Anion Gap 13.0 (6-13) BUN 10 (6-20) mg/dL Creatinine 1.1 H (0.4-1.0) mg/dL Estimated GFR (MDRD) 53 L (>89) Glucose 279 H (70-100) mg/dL Calcium 8.2 L (8.5-10.3) mg/dL Total Bilirubin 0.4 (0.2-1.0) mg/dL AST 30 (10-42) IU/L ALT 29 (10-60) IU/L Alkaline Phosphatase 78 (42-121) IU/L Total Protein 6.5 L (6.7-8.2) g/dL Albumin 3.0 L (3.2-5.5) g/dL Globulin 3.5 (2.1-4.2) g/dL Albumin/Globulin Ratio 0.9 L (1.0-2.2) Lipase 23 (22-51) U/L Serum HCG, Qual Nasal Adenovirus (PCR) Nasal B. parapertussis DNA (PCR) Nasal Coronavir 229E PCR Nasal Coronavir HKU1 PCR Nasal Coronavir NL63 PCR Nasal Coronavir OC43 PCR Nasal Enterovir/Rhinovir PCR Nasal Influenza B PCR Nasal Influenza A PCR Nasal Parainfluen 1 PCR Nasal Parainfluen 2 PCR Nasal Parainfluen 3 PCR Nasal Parainfluen 4 PCR Nasal RSV (PCR) Nasal B.pertussis DNA PCR Nasal C.pneumoniae (PCR) Jung Human Metapneumo PCR Nasal M.pneumoniae (PCR) Nasal SARS-CoV-2 (PCR) Blood Type AB POSITIVE Antibody Screen NEGATIVE Crossmatch IS Only See Detail 11/02/21 Range/Units 10:54 WBC (4.8-10.8) x10^3/uL RBC (4.20-5.40) 10^6/uL Hgb (12.0-16.0) g/dL Hct (37.0-47.0) % MCV (81.0-99.0) fL MCH (27.0-31.0) pg MCHC (32.0-36.0) g/dL RDW (12.0-15.0) % Plt Count (130-450) 10^3/uL MPV (7.9-10.8) fL Neut # (Auto) (1.5-6.6) 10^3/uL Lymph # (Auto) (1.5-3.5) 10^3/uL Douglas # (Auto) (0.0-1.0) 10^3/uL Eos # (Auto) (0.0-0.7) 10^3/uL Baso # (Auto) (0.0-0.1) 10^3/uL Absolute Nucleated RBC x10^3/uL Nucleated RBC % /100WBC Manual Slide Review WBC Morphology (NORMAL) Platelet Estimate (NORMAL) Platelet Morphology (NORMAL) RBC Morph Micro Appear (NORMAL) PT (9.9-12.6) secs INR (0.8-1.2) Sodium (135-145) mmol/L Potassium (3.5-5.0) mmol/L Chloride (101-111) mmol/L Carbon Dioxide (21-32) mmol/L Anion Gap (6-13) BUN (6-20) mg/dL Creatinine (0.4-1.0) mg/dL Estimated GFR (MDRD) (>89) Glucose (70-100) mg/dL Calcium (8.5-10.3) mg/dL Total Bilirubin (0.2-1.0) mg/dL AST (10-42) IU/L ALT (10-60) IU/L Alkaline Phosphatase (42-121) IU/L Total Protein (6.7-8.2) g/dL Albumin (3.2-5.5) g/dL Globulin (2.1-4.2) g/dL Albumin/Globulin Ratio (1.0-2.2) Lipase (22-51) U/L Serum HCG, Qual Nasal Adenovirus (PCR) NOT DETECTED Nasal B. parapertussis DNA (PCR) NOT DETECTED Nasal Coronavir 229E PCR NOT DETECTED Nasal Coronavir HKU1 PCR NOT DETECTED Nasal Coronavir NL63 PCR NOT DETECTED Nasal Coronavir OC43 PCR NOT DETECTED Nasal Enterovir/Rhinovir PCR NOT DETECTED Nasal Influenza B PCR NOT DETECTED Nasal Influenza A PCR NOT DETECTED Nasal Parainfluen 1 PCR NOT DETECTED Nasal Parainfluen 2 PCR NOT DETECTED Nasal Parainfluen 3 PCR NOT DETECTED Nasal Parainfluen 4 PCR NOT DETECTED Nasal RSV (PCR) NOT DETECTED Nasal B.pertussis DNA PCR NOT DETECTED Nasal C.pneumoniae (PCR) NOT DETECTED Jung Human Metapneumo PCR NOT DETECTED Nasal M.pneumoniae (PCR) NOT DETECTED Nasal SARS-CoV-2 (PCR) NOT DETECTED Blood Type Antibody Screen Crossmatch IS Only
[2021-11-02] MEDS: INSULIN ASPART 300 UNIT/3 ML PEN SUBQ SCH (21:59)
[2021-11-02] MEDS ORDERED: ACETAMINOPHEN 500 MG TABLET PO ONE (23:00)
[2021-11-02] MEDS ORDERED: ACETAMINOPHEN 325 MG TABLET PO ONE (23:40)
[2021-11-03] MEDS: oxyCODONE 5 MG TABLET PO PRN (00:01)
[2021-11-03] MEDS: SODIUM CHLORIDE FLUSH 0.9% 10 ML SYRINGE IVP SCH ×4 (00:02→23:55)
[2021-11-03] MEDS ORDERED: CELECOXIB 100 MG CAPSULE PO ONE (05:30)
[2021-11-03] MEDS ORDERED: GABAPENTIN 100 MG CAPSULE PO ONE (05:30)
[2021-11-03] MEDS ORDERED: ACETAMINOPHEN 500 MG TABLET PO ONE (05:30)
[2021-11-03] MEDS ORDERED: SODIUM CHLORIDE 0.9% 100ML 100 ML IV ONE (05:56)
[2021-11-03] MEDS ORDERED: ceFAZolin 2 GM in SODIUM CHLORIDE 0.9% 100ML 100 ML IV ONE (06:00)
[2021-11-03] MEDS ORDERED: PHENAZOPYRIDINE 100 MG TABLET PO ONE ×2 (06:30→09:43)
[2021-11-03] MEDS ORDERED: ACETAMINOPHEN 500 MG TABLET PO SCH (06:30)
[2021-11-03 06:31] LABS: BASOPHILS # (AUTO) 0.1 10^3/uL (0.0-0.1); BASOPHILS % (AUTO) 0.6 %; EOSINOPHILS % (AUTO) 8.5 %; HCT - HEMATOCRIT 23.1 % (37.0-47.0); HGB - HEMOGLOBIN 7.1 g/dL (12.0-16.0); LYMPHOCYTES # (AUTO) 1.9 10^3/uL (1.5-3.5); LYMPHOCYTES % (AUTO) 16.5 %; MEAN CORPUSCULAR HEMOGLOBIN 22.3 pg (27.0-31.0); MEAN CORPUSCULAR HGB CONC 30.7 g/dL (32.0-36.0); MEAN CORPUSCULAR VOLUME 72.6 fL (81.0-99.0); MEAN PLATELET VOLUME 10.8 fL (7.9-10.8); MONOCYTES # (AUTO) 1.1 10^3/uL (0.0-1.0); MONOCYTES % (AUTO) 9.3 %; NEUTROPHILS # (AUTO) 7.5 10^3/uL (1.5-6.6); NEUTROPHILS % (AUTO) 64.6 %; NRBC ABSOLUTE COUNT (AUTO) 0.07 x10^3/uL; NUCLEATED RED BLOOD CELLS AUTO 0.6 /100WBC; PLT - PLATELET COUNT 301 10^3/uL (130-450); RED BLOOD COUNT 3.18 10^6/uL (4.20-5.40); RED CELL DISTRIBUTION WIDTH 24.2 % (12.0-15.0); WHITE BLOOD COUNT 11.6 x10^3/uL (4.8-10.8)
[2021-11-03 06:38] LABS: SLIDE REVIEW? Indicated
[2021-11-03 06:55] LABS: ALBUMIN 2.9 g/dL (3.2-5.5); ALBUMIN/GLOBULIN RATIO 0.9 (1.0-2.2); BILIRUBIN,TOTAL 0.6 mg/dL (0.2-1.0); CALCIUM 8.1 mg/dL (8.5-10.3); CREATININE 0.9 mg/dL (0.4-1.0); POTASSIUM 3.6 mmol/L (3.5-5.0); TOTAL PROTEIN 6.1 g/dL (6.7-8.2)
[2021-11-03 07:04] LABS: PLATELET ESTIMATE, MANUAL NORMAL (130-450,000) (NORMAL); PLATELET MORPHOLOGY NORMAL APPEARANCE (NORMAL)
[2021-11-03] MEDS: INSULIN ASPART 300 UNIT/3 ML PEN SUBQ SCH ×4 (07:40→21:11)
[2021-11-03] MEDS ORDERED: ROCURONIUM 50 MG/5 ML VIAL ONE ×2 (08:55→10:43)
[2021-11-03] MEDS ORDERED: LIDOCAINE-MPF 2% 5 ML VIAL ONE (08:55)
[2021-11-03] MEDS ORDERED: PROPOFOL 200 MG/20 ML VIAL IVP ONE (08:55)
[2021-11-03] MEDS ORDERED: MIDAZOLAM 2 MG/2 ML VIAL ONE ×2 (08:55→10:32)
[2021-11-03] MEDS ORDERED: fentaNYL 100 MCG/2 ML VIAL ONE ×2 (08:56→15:41)
--- NOTE | 2021-11-03 09:11 | ANESTHESIA ---
Pre-Anesthesia VS, & Labs - Diagnosis Fibroid uterus, anemia - Procedure Laparoscopic assisted vaginal hysterectomy Vital Signs: Temp Pulse Resp BP Pulse Ox 37.1 C 70 16 117/58 L 100 11/03/21 07:16 11/03/21 07:16 11/03/21 07:16 11/03/21 07:16 11/03/21 07:16 Height: 5 ft 4 in Weight (kg): 94 kg Body Mass Index: 35.5 BMI Classification: Obese - NPO >8 hours - Is Patient ?: No - Lab Results Current Lab Results: Laboratory Tests 11/03/21 05:52: Sodium 137, Potassium 3.6, Chloride 108, Carbon Dioxide 20 L, Anion Gap 9.0, BUN 10, Creatinine 0.9, Estimated GFR (MDRD) 67 L, Glucose 124 H, Calcium 8.1 L, Total Bilirubin 0.6, AST 21, ALT 28, Alkaline Phosphatase 69, Total Protein 6.1 L, Albumin 2.9 L, Globulin 3.2, Albumin/Globulin Ratio 0.9 L 11/03/21 05:52: WBC 11.6 H, RBC 3.18 L, Hgb 7.1 L, Hct 23.1 L, MCV 72.6 L, MCH 22.3 L, MCHC 30.7 L, RDW 24.2 H, Plt Count 301, MPV 10.8, Neut # (Auto) 7.5 H, Lymph # (Auto) 1.9, Barry # (Auto) 1.1 H, Eos # (Auto) 1.0 H, Baso # (Auto) 0.1, Absolute Nucleated RBC 0.07, Nucleated RBC % 0.6, Manual Slide Review Indicated, Platelet Estimate NORMAL (130-450,000), Platelet Morphology NORMAL APPEARANCE, RBC Morph Micro Appear 2+ ANISOCYTOSIS 11/03/21 05:52: Fasting Glucose 125 H 11/02/21 17:30: WBC 13.4 H, RBC 2.89 L, Hgb 5.9 L*, Hct 19.8 L*, MCV 68.5 L, MCH 20.4 L, MCHC 29.8 L, RDW 24.6 H, Plt Count 288, MPV 10.1, Neut # (Auto) 11.5 H, Lymph # (Auto) 1.0 L, Barry # (Auto) 0.7, Eos # (Auto) 0.0, Baso # (Auto) 0.0, Absolute Nucleated RBC 0.08, Nucleated RBC % 0.6 11/02/21 11:00: PT 12.2, INR 1.1 11/02/21 11:00: Serum HCG, Qual NEGATIVE 11/02/21 11:00: Blood Type AB POSITIVE, Antibody Screen NEGATIVE, Crossmatch IS Only See Detail 11/02/21 11:00: Sodium 130 L, Potassium 4.2, Chloride 102, Carbon Dioxide 15 L, Anion Gap 13.0, BUN 10, Creatinine 1.1 H, Estimated GFR (MDRD) 53 L, Glucose 279 H, Calcium 8.2 L, Total Bilirubin 0.4, AST 30, ALT 29, Alkaline Phosphatase 78, Total Protein 6.5 L, Albumin 3.0 L, Globulin 3.5, Albumin/Globulin Ratio 0.9 L, Lipase 23 11/02/21 11:00: WBC 19.6 H, RBC 2.02 L, Hgb 2.9 L*, Hct 12.6 L*, MCV 62.4 L, MCH 14.4 L, MCHC 23.0 L, RDW 21.5 H, Plt Count 483 H, MPV 11.1 H, Neut # (Auto) 17.5 H, Lymph # (Auto) 1.0 L, Barry # (Auto) 0.9, Eos # (Auto) 0.0, Baso # (Auto) 0.0, Absolute Nucleated RBC 0.25, Nucleated RBC % 1.3, Manual Slide Review Indicated, WBC Morphology NORMAL APPEARANCE, Platelet Estimate INCREASED (>450,000), Platelet Morphology NORMAL APPEARANCE, RBC Morph Micro Appear 1+ MICROCYTOSIS Lab results reviewed: Yes Fish Bones: 11/03/21 05:52 11/03/21 05:52 Home Medications and Allergies Home Medications: Ambulatory Orders Ferrous Sulfate 2 tab PO DAILY 11/02/21 Active Medications Insulin Aspart (Insulin Aspart 300 Unit/3 Ml Pen) 1 - 5 unit SUBQ 0800,1200,1700,2100 ANNY; Protocol Last Admin: 11/03/21 07:40 Dose: Not Given Documented by: Oxycodone HCl (Oxycodone 5 Mg Tablet) 5 mg PO Q4HR PRN PRN Reason: PAIN Last Admin: 11/03/21 00:01 Dose: 5 mg Documented by: Sodium Chloride (Sodium Chloride Flush 0.9% 10 Ml Syringe) 10 ml IVP 0100,0900,1700 ANNY Last Admin: 11/03/21 07:32 Dose: 10 ml Documented by: Sodium Chloride (Sodium Chloride Flush 0.9% 10 Ml Syringe) 10 ml IVP PRN PRN PRN Reason: NEEDED PER PROVIDER ORDERS Ferrous Sulfate 2 tab PO DAILY 11/02/21 Allergies/Adverse Reactions: Allergies Allergy/AdvReac Type Severity Reaction Status Date / Time Penicillins Allergy Anaphylaxis Verified 11/02/21 10:57 Anes History & Medical History - Anesthetic History Anesthesia Complications: reports: No previous complications - Medical History Cardiovascular: reports: None Pulmonary: reports: None Gastrointestinal: reports: None Urinary: reports: None Neuro: reports: None Musculoskeletal: reports: None Endocrine/Autoimmune: reports: Type 2 diabetes (Recently diagnosed) Blood Disorders: reports: Anemia Skin: reports: None Smoking Status: Never smoker Psychosocial: reports: Cannabis (smokes and edibles) History of Cancer?: No - Surgical History General: reports: Other (excision of benign mass) Gynecologic: reports: Other (cone biopsy) Exam General: Alert, Oriented x3, Cooperative, No acute distress Dental: WNL Mouth Openin Fingerbreadth Neck Mobility: Normal Mallampati classification: III Thyromental Distance: 4-6 cm Respiratory: Lungs clear, Normal breath sounds, No respiratory distress, No accessory muscle use Cardiovascular: Regular rate, Normal S1, Normal S2, No murmurs Mental/Cognitive Status: Alert/Oriented X3, Normal for patient Plan Anesthesia Type: General (Possible blood transfusion intraop), Transverse Abdominis Plane (TAP) Block (If converts to open hysterectomy) Consent for Procedure(s) Verified and Reviewed: Yes Code Status: Attempt Resuscitation ASA classification: 3-Severe systemic disease Is this case an emergency?: Yes
[2021-11-03] MEDS ORDERED: BUPIVACAINE 0.25% PF 10 ML VIAL ONE (09:17)
[2021-11-03] MEDS ORDERED: METHYLENE BLUE 0.5% 50 MG/10 ML AMPULE ONE (09:17)
[2021-11-03] MEDS ORDERED: LIDOCAINE MPF 2%-EPI 1:200000 20 ML VIAL ONE (09:17)
[2021-11-03] MEDS ORDERED: ATROPINE ABBOJECT 1 MG/10 ML SYRINGE IVP PRN (09:33)
[2021-11-03] MEDS ORDERED: ONDANSETRON 4 MG/2 ML VIAL IVP PRN (09:33)
[2021-11-03] MEDS ORDERED: HYDROmorphone 0.5 MG/0.5 ML SYRINGE IVP PRN (09:33)
[2021-11-03] MEDS ORDERED: MORPHINE 2 MG/ML CARPUJECT IVP PRN (09:33)
[2021-11-03] MEDS ORDERED: NALOXONE 0.4 MG/ML VIAL IVP PRN (09:33)
[2021-11-03] MEDS ORDERED: fentaNYL 100 MCG/2 ML VIAL IVP PRN (09:33)
[2021-11-03] MEDS ORDERED: CEFAZOLIN SODIUM IN 0.9 % NACL 2 GM/100 ML BAG IV ONE (09:41)
[2021-11-03] MEDS ORDERED: metroNIDAZOLE 500 MG/100 ML 500 MG/100 ML BAG ONE (09:41)
[2021-11-03] MEDS ORDERED: LACTATED RINGERS 1,000 ML IV SCH (10:00)
[2021-11-03] MEDS ORDERED: TRANEXAMIC ACID 1,000 MG/10 ML VIAL ONE ×2 (10:35→12:36)
[2021-11-03] MEDS ORDERED: PHENYLEPHRINE 10 MG/ML VIAL ONE (10:43)
[2021-11-03] MEDS ORDERED: ePHEDrine 50 MG/ML VIAL IVP ONE (10:43)
[2021-11-03] MEDS ORDERED: VASOPRESSIN 20 UNIT/ML VIAL ONE ×2 (11:00→12:34)
[2021-11-03] MEDS ORDERED: METHYLENE BLUE 0.5% 50 MG/10 ML AMPULE IR ONE ×2 (11:43)
[2021-11-03] MEDS ORDERED: VASOPRESSIN 20 UNIT/ML VIAL IVP ONE (11:44)
[2021-11-03] MEDS ORDERED: BUPIVACAINE 0.25% PF 30 ML VIAL SUBQ ONE (12:05)
[2021-11-03] MEDS ORDERED: LIDOCAINE 2%-EPI 1:100000 20 ML MDV SUBQ ONE (12:06)
[2021-11-03] MEDS ORDERED: diphenhydrAMINE INJ 50 MG/ML VIAL ONE (12:30)
[2021-11-03 12:49] LABS: BASOPHILS # (AUTO) 0.1 10^3/uL (0.0-0.1); BASOPHILS % (AUTO) 0.4 %; EOSINOPHILS # (AUTO) 0.1 10^3/uL (0.0-0.7); EOSINOPHILS % (AUTO) 0.4 %; HCT - HEMATOCRIT 24.1 % (37.0-47.0); HGB - HEMOGLOBIN 7.4 g/dL (12.0-16.0); LYMPHOCYTES # (AUTO) 1.1 10^3/uL (1.5-3.5); LYMPHOCYTES % (AUTO) 6.7 %; MEAN CORPUSCULAR HEMOGLOBIN 23.5 pg (27.0-31.0); MEAN CORPUSCULAR HGB CONC 30.7 g/dL (32.0-36.0); MEAN CORPUSCULAR VOLUME 76.5 fL (81.0-99.0); MEAN PLATELET VOLUME 9.8 fL (7.9-10.8); MONOCYTES # (AUTO) 0.5 10^3/uL (0.0-1.0); MONOCYTES % (AUTO) 3.2 %; NEUTROPHILS # (AUTO) 14.3 10^3/uL (1.5-6.6); NEUTROPHILS % (AUTO) 85.6 %; NRBC ABSOLUTE COUNT (AUTO) 0.13 x10^3/uL; NUCLEATED RED BLOOD CELLS AUTO 0.8 /100WBC; PLT - PLATELET COUNT 262 10^3/uL (130-450); RED BLOOD COUNT 3.15 10^6/uL (4.20-5.40); RED CELL DISTRIBUTION WIDTH 25.3 % (12.0-15.0); WHITE BLOOD COUNT 16.8 x10^3/uL (4.8-10.8)
[2021-11-03 12:50] LABS: SLIDE REVIEW? Indicated
[2021-11-03 12:59] LABS: ALBUMIN 2.7 g/dL (3.2-5.5); ALBUMIN/GLOBULIN RATIO 0.9 (1.0-2.2); BILIRUBIN,TOTAL 0.9 mg/dL (0.2-1.0); CALCIUM 7.4 mg/dL (8.5-10.3); CREATININE 0.8 mg/dL (0.4-1.0); POTASSIUM 4.1 mmol/L (3.5-5.0); TOTAL PROTEIN 5.6 g/dL (6.7-8.2)
[2021-11-03 13:01] LABS: CALCIUM, IONIZED 1.01 mmol/L (1.15-1.33); VBG PH 7.362 (7.31-7.41)
[2021-11-03 13:26] LABS: PLATELET ESTIMATE, MANUAL NORMAL (130-450,000) (NORMAL); PLATELET MORPHOLOGY 1+ GIANT PLATELETS (NORMAL)
[2021-11-03] MEDS ORDERED: LIDOCAINE JELLY 2% 6 ML JEL.PF.APP UR ONE (13:30)
[2021-11-03] MEDS ORDERED: LIDOCAINE JELLY 2% 6 ML JEL.PF.APP ONE (13:53)
[2021-11-03] MEDS ORDERED: SODIUM CHLORIDE 0.9% 10 ML VIAL IVP ONE (14:01)
[2021-11-03] MEDS ORDERED: ROPIVACAINE 0.5% PF 20 ML AMPULE ONE ×2 (14:01→14:02)
[2021-11-03] MEDS ORDERED: HYDROmorphone 1 MG/ML CARPUJECT ONE (14:26)
[2021-11-03] MEDS ORDERED: SUGAMMADEX 200 MG/2 ML VIAL IVP ONE (14:33)
[2021-11-03] MEDS ORDERED: SEVOFLURANE 250 ML LIQUID INH ONE (14:38)
--- NOTE | 2021-11-03 15:12 | XRAY Report ---
PROCEDURE: Abdomen 1 View X-Ray INDICATIONS: RULE-OUT RETAINED INSTRUMENTS TECHNIQUE: 1 view of the abdomen were acquired. COMPARISON: None FINDINGS: Surgical changes and devices: There is mild shadow irregularity overlying the inferior pelvis at the level of the pubic symphysis. Bowel: No pneumoperitoneum. The bowel gas pattern is normal. Soft tissues: No masses; visualized solid organ contours appear normal in size. No suspicious abdom inal calcifications. Gallstone is noted. Bones: No suspicious bony abnormalities. IMPRESSION: Within the [id number] presented, no distinctive radiodense foreign bodies identified. However, there are overlapping shadows identified at the level of the pelvis. While this could be se condary to overlying structures, retained surgical products such as sponges cannot be definitively ex cluded. Recommend removing all external objects from this region and repeat x-ray. Reviewed by: Nkechi Finley MD on 11/03/2021 3:11 PM PST Approved by: Nkechi Finley MD on 11/03/2021 3:11 PM PST Station ID: [id number]
[2021-11-03] MEDS ORDERED: LACTATED RINGERS 1,000 ML IV ONE (15:30)
[2021-11-03] MEDS ORDERED: SCOPOLAMINE PATCH TOP PRN (15:59)
[2021-11-03] MEDS ORDERED: PROMETHAZINE INJ 6.25 MG in SODIUM CHLORIDE 0.9% 50 ML IV PRN (15:59)
--- NOTE | 2021-11-03 16:02 | ANESTHESIA POST OP EVALUATION ---
Anesthesia Post Eval - Post Anesthesia Eval Vitals: Last Vital Signs Temp 36 C L 11/03/21 15:35 Pulse 79 11/03/21 15:45 Resp 17 11/03/21 15:45 BP 126/67 11/03/21 15:45 Pulse Ox 100 11/03/21 15:45 CV Function Including HR & BP: Stable Pain Control: Additional Therapies Ordered Nausea & Vomiting: Negative Mental Status: Patient Participates Respiratory Status: Airway Patent Hydration Status: Satisfactory Anesthesia Complications: None
--- NOTE | 2021-11-03 16:06 | OPERATIVE REPORT ---
Operative Report - General Admit Date: 11/02/21 Procedure Date: 11/03/21 Planned Procedure: Total laparoscopic hysterectomy and bilateral salpingectomy with cystoscopy and possible conversion to open procedure. Pre-Op Diagnosis: Acute blood loss anemia with Hgb 2.7, uterine fibroids, DUB Procedure Performed: Myomectomy Vaginal hysterectomy with conversion to open procedure Bilateral salpingectomy Cystoscopy Transfusion Post Op Diagnosis: same - Procedure Note Primary Surgeon: Kat Costa MD Secondary Surgeon: Dr. Zee during abdominal portion of procedure Anesthesia Provider: Tiffanie Heredia CRNA and Sheridan Hightower CRNA Anesthesia Technique: General ET tube Pathology: 1) uterine fibroid 2) Uterus with cervix 3) bilateral fallopian tubes IV Fluids (mL): 2,250 (2200 crystalloid, 1 units PRBC, 1 unit FFP) Estimated Blood Loss (mL): 1,200 (Patient was bleeding profusely prior to procedure and lost 150-200 cc prior to start of procedure ) Urine Output (mL): 950 Indications: Patient is a 46 yo admitted with acute blood loss anemia in the setting of DUB 2/2 uterine mass. Patient presented to the ED on 11/02/21 with syncopal episodes and was moderately obtunded 2/2 acute blood loss anemia. Presenting Hgb 2.9 Patient reports that she has had heavy vaginal bleeding for about 18 months. Most recently, she had heavy vaginal bleeding on Tuesday evening (10/30/21) through to Tuesday morning. She passed "a bucket of blood". Bleeding stopped Tuesday day until Tuesday (11/01/21) pm. She soaked "5 diapers with blood" and then passed out this am. One random day last week, she passed a "baby sized clot". She started COCs about 6 weeks ago after having a telehealth visit. She was having terrible cramps that ached from her chest to her anus and felt like she was passing a placenta. Pain improved with COCs. Bleeding has been going on for more than a year. Has had 2 presentations for transfusions prior to current. States she had light menses until 2019. In the fall of 2019, she started having heavy period that were high volume for 3 days. Review of medical records show that she had a pelvic us on 04/16/2020 that showed a 3 cm submucosal fibroid. Uterus measured 10.3x5.5x5.8 cm with a volume of 171.2. This was read as normal volume. She was counseled to follow-up with OBGYN but did not. Patient could not tolerate a TVUS today given mildly obtunded state 2/2 severe anemia. TAUS showed uterine enlargement but imaging was suboptimal. Pelvic MRI showed and enlarged uterus with 8 cm fibroid in the lower uterine segment and possibility of adenomyosis. She was transfused with 4 units of PRBC overnight to return Hcg to 7.1. Given continued active bleeding, the decision was made to proceed tro the OR for planned hysterectomy, likely laparoscopic approach with possible conversion to open procedure. Findings: Palpable mass at cervical os with edge of the cervix pulled up behind the mass. Speculum was placed and a 5 cm fibroid was protruding from the external os and palpated into the lower uterine segment. Cervix was effaced to 80% and was dilated to 4-5 cm, with soft, stretchy texture. Uterus was enlarged to about 18 wga. Active uterine bleeding with more than 150-200 cc passed prior to initiation of the procedure. Fibroid was removed and was about 8 cm in length and 5 cm in width. The residual cervical tissue was soft, dilated, and floppy, similar to a post cervix. Length exceeded more than 7 cm. Could not support Stenotype Operator uterine manipulator or Marcelo cup. The uterus, absent of of fibroid and fallopian tubes, weight 320 g. Bilateral fallopian tubes were enlarged and distended to more than 2cm in diameter for width. Right side was larger than left. Bilateral ovaries were unremarkable. Mild inflammatory changes, adhesions. Complications: Transfusion on 1 unit PRBC and 1 unit FFP given active blood loss and surgical blood loss with baseline preoperative Hgb 7.1. This was in addition ot 4 units of PRBC administered prior to the procedure. - Other Other Information/Narrative: Consent was again confirmed. The patient was brought to the OR and underweight general anesthesia. She was placed in dorsal lithotomy with legs supported in yellowfin stirrups. Bimanual exam was performed. She was then prepared and draped in the usual sterile fashion. Martin catheter was in place and backfilled with 50 cc of dilute methylene blue and clamped. SCDs were confirmed to be in place and operating. A surgical time out was performed. Administration of 2g IV cefazolin was confirmed. Intention was to place a Stenotype Operator uterine manipulator in order to proceed with laparoscopic hysterectomy. However, a uterine fibroid greater than 5 cm in external dimension was protruding through the cervical os, precluding placement of Marcelo ring. Split speculum was removed and a weighted speculum was placed in the posterior vaginal vault to improve visualization. Margins of cervix edge were not well visualized and accessible, although they were palpable. Patient was actively bleeding and passed 200 cc of blood per vagina prior to start of any surgical intervention. Vasopressin (20 uits/100 cc NS). was injected circumeferentially around the perimeter of the fibroid. Bovie cautery was used to create an incision in the fibroid capsule. The fibroid was dissected from the lower uterine segment in a combination of sharp and blunt dissection using Metzenbaum scissors. No morcellation was performed and the fibroid was removed intact. The cervix was effaced, soft, floppy, and dilated to about 6 cm after removal of the fibroid. It would be difficult to palpate cervical borders through an abdomi nal approach and the cervix and LEON would not support a uterine manipulator for laparoscopic approach. The decision was made to proceed with vaginal approach. The cervix was grasped with a double toothed tenaculum clamp on both its anterior and posterior lips. A total of 20 cc of 20mg vasopressin/100 cc was injected in a circumferential direction around the cervix. With downward traction, we made a circumferential incision of the vaginal epithelium at the junction of the cervix with the bovie cautery to aid entry into the peritoneum. The overlying vaginal epithelium was dissected off the underlying cervical stroma in an combination of sharp and blunt dissection. The cervicovesical space was then created by both blunt and sharp dissection. At no point was there spillage of methylene blue. Entrance into the anterior space was completed and a right angle retractor was inserted under the bladder. The posterior cul-de-sac was entered sharply in the same manner. A long necked weighted speculum was then placed in the vagina through the posterior space. The uterosacral ligaments were clamped with Ena clamps and ligated with #0 Vicryl suture bilaterally. A moistened sponge stick was placed in the posterior cul de sac to retract the bowel and patient was placed in Trendelenburg position. A laparoscopic Ligasure bipolar device was then used to seal and ligate each pedicle. The uterosacral ligaments were suture ligated as above. The cardinal ligaments, uterine vessels, broad ligaments, and utero-ovarian pedicles were sealed and ligated with the Ligasure device. Bleeding remained heavy and the anatomy of the uterus was distorted and significantly elongated such that progressing to the upper pedicles was slowed. Given that blood loss was approaching 1 liter with a starting hgb of 7.1, the decision was made to convert to an open procedure. Surgical gloves were changed. A total of 10 cc of 1% lidocaine with epinephrine and 0.25% marcaine was injected into the area of the abdominal incision. A Pfannenstiel incision was made in the skin with a scalpel and carried through the underlying layer of fascia in a combination of cautery and blunt dissection. The fascia was incised in the midline, and the incision was extended laterally with the Chaparro scissors. The superior aspect of the fascial incision was grasped with the Cesario clamps, elevated, and the underlying rectus muscles were dissected off bluntly and sharply using the Chaparro scissors. Attention was then turned to the inferior aspect of the incision which in a similar fashion was grasped, tented up with Cesario clamps, and the underlying rectus muscles dissected off with cautery and blunt dissection. The rectus muscles were then in the midline. The peritoneum was identified, tented up, and entered bluntly. The peritoneal incision was extended superiorly and inferiorly with good visualization of the bladder. Laparotomy revealed no obvious abnormalities. An O'Max-O'King retractor was placed and the bowel was packed away into the upper abdomen to improve visualization and protect adjacent tissue. The uterus itself appeared enlarged and mobile. The ovaries appeared normal bilaterally. The fallopian tubes were grossly enlarged bilaterally, right greater than left. The cornea were grasped using Cesario clamps and the uterus elevated. Dr. Zee of General Surgery was asked to assist with retraction. The round ligament on the left was grasped and divided using cautery. The peritoneum was opened lateral to the infundibulopelvic ligaments. The anterior leaf of the broad ligament was divided and the bladder flap, partially created from the vaginal approach, was extended. The retroperitoneal space was then dissected out. An avascular window was found in the posterior leaf of the broad ligament and a hole opened. The uteroovarian ligament was sealed and with the Ligasure device. The fallopian tube was sealed and transected from the uterine cornua. The same procedure was carried out on the right, again taking care to avoid the ureter. Once the anterior leaf of the broad ligament was completely divided the bladder was fully taken down off the lower segment of the uterus and the cervix using cautery and blunt dissection. The uterine vessels had been skeletonized bilaterally. The uterine vessels were again sealed and transected with the Ligasure device. The cardinal ligaments and the uterosacral ligaments had already been sealed and ligated with the Ligasure during the vaginal portion of the procedure. The cervix had already been sharply from the vagina. The uterus and cervix were removed from the pelvis. Uterine body, without fallopian tubes and fibroid, weight 320 g. The pelvis had been distorted by the chronic dilation of the pelvic floor with the partial prolapse of the large fibroid. The vagina cuff was not easily accessible or easily visualized from the abdominal approach. As such, closure of the vaginal cuff was performed from a vaginal approach, with direct observation from the abdominal approach by Dr. Zee. A weighted speculum and right angle retractor were placed in the vaginal vault. The edges of the va ginal cuff were grasped with Allis clamps. The vaginal cuff was then closed with interrupted figure of 8 sutures using 0-Vicryl. Hemostasis was excellent. The vaginal vault was cleared of debris. The pelvis was then irrigated with sterile water. The cuff closure was noted to be water tight. Good hemostasis was noted both in the vaginal vault and in the pelvis. Attention was then turned to the salpingectomy portion of the procedure. The left Fallopian tube was grasped with [place] clamps and elevated. It was resected from the underlying mesosalpinx with the LigaSure bipolar sealing and cutting device until the insertion point at the uterine cornua was met. At that point, the fallopian tube was sealed and transected at ints insertion point into the uterine cornua. The tube was removed from the field. This process was repeated on the right side. Both tubes were sent in a single specimen to Pathology. Ovaries were inspected as with findings noted above. All pedicles were then sequentially checked for hemostasis which appeared excellent. The sponge count was correct times 2 at this time. A Martin catheter was then unclamped. The bladder was drained and the Martin was removed. The cystoscope was inserted and the bladder was distended with normal saline. The survey of all of the bladder surfaces was completed and was noted to be absent of suture or trauma. Ureteral jets were observed directly bilaterally. Bladder was drained and cystoscope was removed. Martin catheter was replaced. All instruments were removed from the vagina and good hemostasis was noted. Gloves were changed. The O'Max-O'King retractor was removed. A sweep of the abdomen and pelvis was performed by primary surgeon and deemed to be free of sponges/instruments. Counts were noted to be correct. The peritoneum was then reapproximated with 2-0 Vicryl in a running fashion. The rectus muscles were then reapproximated using interrupted [id number] sutures using 2-0 Chromic. Good hemostasis was noted. The fascia was then closed using 0 Vicryl in a running fashion starting from the left lateral edge to the midline. A second suture was used to close the fascia in a running fashion starting from the right lateral edge and meeting in the midline, agian using 0-Vicryl. The subcutaneous tissue was then irrigated and closed using 2-0 chromic in a running subcutaneous suture. Skin was closed in a running subcuticular suture using 4-0 Monocryl. Steri-Strips were applied to reinforce the incision and dressing was applied. A postoperative abdominal x-ray was performed to confirm no residual sponges or instruments were retained. Sponge/needle/instrument counts were correct. The patients procedure was terminated. She was sent to the PACU in good condition. Dr Zee performed an essential role in retraction in this complicated procedure. 22 Modifier: This procedure was complicated by an enlarged uterus of 320 g NOT INCLUDING weight of fibroid and enlarged fallopian tubes. The fibroid was larger than the uterus. The size and location of the uterine fibroid increased the complexity of the case. In addition, the patient presented with active hemorrhage and presenting hgb of 2.9. She received 4 units of PRBC prior to the procedure to reach a hgb of 7.1 for surgical optimization. She continued to lose large volumes of blood due to her uterine pathology and was transfused with an additional unit of PRBC and FFP intraoperatively. There was no assistant to the ceo skilled and credentialed in gynecologic surgery available in the [facility], other than the primary surgeon, at the time of the procedure. All factors combined to result in a longer than average OR time.
[2021-11-03 16:29] LABS: BASOPHILS # (AUTO) 0.1 10^3/uL (0.0-0.1); BASOPHILS % (AUTO) 0.2 %; HCT - HEMATOCRIT 25.8 % (37.0-47.0); LYMPHOCYTES # (AUTO) 0.6 10^3/uL (1.5-3.5); LYMPHOCYTES % (AUTO) 2.4 %; MEAN CORPUSCULAR HEMOGLOBIN 23.5 pg (27.0-31.0); MEAN CORPUSCULAR VOLUME 75.9 fL (81.0-99.0); MEAN PLATELET VOLUME 9.8 fL (7.9-10.8); MONOCYTES # (AUTO) 0.7 10^3/uL (0.0-1.0); NEUTROPHILS # (AUTO) 21.7 10^3/uL (1.5-6.6); NRBC ABSOLUTE COUNT (AUTO) 0.09 x10^3/uL; NUCLEATED RED BLOOD CELLS AUTO 0.4 /100WBC; PLT - PLATELET COUNT 289 10^3/uL (130-450); RED CELL DISTRIBUTION WIDTH 24.7 % (12.0-15.0); WHITE BLOOD COUNT 23.4 x10^3/uL (4.8-10.8)
[2021-11-03 16:33] LABS: SLIDE REVIEW? Indicated
[2021-11-03] MEDS: HYDROmorphone 1 MG/ML CARPUJECT IVP PRN ×3 (16:44→21:12)
[2021-11-03] MEDS: LACTATED RINGERS 1,000 ML IV SCH (16:46)
[2021-11-03] MEDS: KETOROLAC 30 MG/ML VIAL IVP SCH ×2 (16:46→21:11)
[2021-11-03] MEDS: ACETAMINOPHEN 500 MG TABLET PO SCH ×2 (16:46→23:55)
[2021-11-03 16:50] LABS: DIFFERENTIAL COMMENT MANUAL=AUTO DIFF; PLATELET ESTIMATE, MANUAL NORMAL (130-450,000) (NORMAL); PLATELET MORPHOLOGY NORMAL APPEARANCE (NORMAL)
[2021-11-03] MEDS: SODIUM CHLORIDE FLUSH 0.9% 10 ML SYRINGE IVP PRN ×3 (17:04→21:13)
[2021-11-03] MEDS ORDERED: diphenhydrAMINE INJ 50 MG/ML VIAL IVP PRN (20:34)
[2021-11-03] MEDS: DOCUSATE SODIUM 100 MG CAPSULE PO SCH (21:12)
[2021-11-03] MEDS: ceFAZolin 1 GM in SODIUM CHLORIDE 0.9% MINIBAG 100 ML IV SCH (21:17)
[2021-11-03] MEDS: metroNIDAZOLE 500 MG/100 ML 500 MG/100 ML BAG IV SCH (21:17)
[2021-11-03] MEDS: SIMETHICONE CHEW 80 MG TABLET PO PRN (21:31)
[2021-11-03] MEDS ORDERED: GABAPENTIN 300 MG CAPSULE PO SCH (22:00)
[2021-11-03] MEDS: ONDANSETRON ODT 4 MG TABLET TL PRN (22:06)
[2021-11-04 00:59] LABS: BASOPHILS % (AUTO) 0.2 %; HCT - HEMATOCRIT 22.1 % (37.0-47.0); LYMPHOCYTES # (AUTO) 0.7 10^3/uL (1.5-3.5); LYMPHOCYTES % (AUTO) 3.9 %; MEAN CORPUSCULAR HEMOGLOBIN 23.4 pg (27.0-31.0); MEAN CORPUSCULAR HGB CONC 30.3 g/dL (32.0-36.0); MEAN CORPUSCULAR VOLUME 77.3 fL (81.0-99.0); MONOCYTES # (AUTO) 1.2 10^3/uL (0.0-1.0); MONOCYTES % (AUTO) 6.4 %; NEUTROPHILS # (AUTO) 16.8 10^3/uL (1.5-6.6); NEUTROPHILS % (AUTO) 88.8 %; NRBC ABSOLUTE COUNT (AUTO) 0.06 x10^3/uL; NUCLEATED RED BLOOD CELLS AUTO 0.3 /100WBC; PLT - PLATELET COUNT 252 10^3/uL (130-450); RED BLOOD COUNT 2.86 10^6/uL (4.20-5.40); RED CELL DISTRIBUTION WIDTH 24.2 % (12.0-15.0); WHITE BLOOD COUNT 18.9 x10^3/uL (4.8-10.8)
[2021-11-04 01:07] LABS: HGB - HEMOGLOBIN 6.7 g/dL (12.0-16.0)
[2021-11-04 01:08] LABS: ALBUMIN 2.7 g/dL (3.2-5.5); ALBUMIN/GLOBULIN RATIO 0.8 (1.0-2.2); BILIRUBIN,TOTAL 0.5 mg/dL (0.2-1.0); CALCIUM 7.5 mg/dL (8.5-10.3); CREATININE 0.9 mg/dL (0.4-1.0); POTASSIUM 3.9 mmol/L (3.5-5.0)
[2021-11-04] MEDS: LACTATED RINGERS 1,000 ML IV SCH ×2 (02:43→12:49)
[2021-11-04] MEDS: KETOROLAC 30 MG/ML VIAL IVP SCH ×2 (04:22→09:56)
[2021-11-04] MEDS: metroNIDAZOLE 500 MG/100 ML 500 MG/100 ML BAG IV SCH ×3 (04:22→20:21)
[2021-11-04] MEDS: ceFAZolin 1 GM in SODIUM CHLORIDE 0.9% MINIBAG 100 ML IV SCH ×3 (04:23→19:43)
[2021-11-04] MEDS: ONDANSETRON ODT 4 MG TABLET TL PRN ×2 (04:48→14:24)
[2021-11-04] MEDS: HYDROmorphone 1 MG/ML CARPUJECT IVP PRN (04:48)
[2021-11-04] MEDS: SIMETHICONE CHEW 80 MG TABLET PO PRN ×2 (04:52→19:52)
[2021-11-04] MEDS ORDERED: MIDAZOLAM 2 MG/2 ML VIAL ONE ×2 (06:53→08:49)
[2021-11-04] MEDS ORDERED: fentaNYL 100 MCG/2 ML VIAL ONE (06:53)
[2021-11-04 07:42] LABS: BASOPHILS # (AUTO) 0.1 10^3/uL (0.0-0.1); BASOPHILS % (AUTO) 0.2 %; EOSINOPHILS # (AUTO) 0.1 10^3/uL (0.0-0.7); EOSINOPHILS % (AUTO) 0.4 %; HCT - HEMATOCRIT 21.5 % (37.0-47.0); LYMPHOCYTES # (AUTO) 1.4 10^3/uL (1.5-3.5); LYMPHOCYTES % (AUTO) 4.8 %; MEAN CORPUSCULAR HGB CONC 30.2 g/dL (32.0-36.0); MEAN CORPUSCULAR VOLUME 76.2 fL (81.0-99.0); MEAN PLATELET VOLUME 10.4 fL (7.9-10.8); MONOCYTES # (AUTO) 1.6 10^3/uL (0.0-1.0); MONOCYTES % (AUTO) 5.6 %; NEUTROPHILS % (AUTO) 88.3 %; NRBC ABSOLUTE COUNT (AUTO) 0.06 x10^3/uL; NUCLEATED RED BLOOD CELLS AUTO 0.2 /100WBC; PLT - PLATELET COUNT 258 10^3/uL (130-450); RED BLOOD COUNT 2.82 10^6/uL (4.20-5.40); RED CELL DISTRIBUTION WIDTH 25.1 % (12.0-15.0); WHITE BLOOD COUNT 29.4 x10^3/uL (4.8-10.8)
[2021-11-04 07:49] LABS: HGB - HEMOGLOBIN 6.5 g/dL (12.0-16.0)
[2021-11-04 07:51] LABS: SLIDE REVIEW? Indicated
[2021-11-04] MEDS ORDERED: ONDANSETRON 4 MG/2 ML VIAL ONE (08:03)
[2021-11-04] MEDS ORDERED: HYDROmorphone 1 MG/ML CARPUJECT ONE (08:03)
[2021-11-04] MEDS ORDERED: DEXAMETHASONE 4 MG/ML VIAL ONE (08:03)
[2021-11-04] MEDS: ACETAMINOPHEN 500 MG TABLET PO SCH ×2 (08:03→15:44)
[2021-11-04] MEDS: GABAPENTIN 300 MG CAPSULE PO PRN ×2 (08:04→19:52)
[2021-11-04] MEDS: ENOXAPARIN 40 MG/0.4 ML SYRINGE SUBQ SCH (08:04)
[2021-11-04] MEDS: DOCUSATE SODIUM 100 MG CAPSULE PO SCH ×2 (08:04→20:21)
[2021-11-04] MEDS: SODIUM CHLORIDE FLUSH 0.9% 10 ML SYRINGE IVP SCH ×2 (08:05→18:24)
[2021-11-04] MEDS: INSULIN ASPART 300 UNIT/3 ML PEN SUBQ SCH ×4 (08:05→20:39)
[2021-11-04 08:10] LABS: ALBUMIN 2.6 g/dL (3.2-5.5); ALBUMIN/GLOBULIN RATIO 0.9 (1.0-2.2); BILIRUBIN,TOTAL 0.6 mg/dL (0.2-1.0); CREATININE 0.8 mg/dL (0.4-1.0); TOTAL PROTEIN 5.4 g/dL (6.7-8.2)
[2021-11-04 08:11] LABS: CALCIUM 7.6 mg/dL (8.5-10.3); POTASSIUM 3.5 mmol/L (3.5-5.0)
[2021-11-04] MEDS ORDERED: SUCCINYLCHOLINE 200 MG/10 ML VIAL ONE (08:22)
[2021-11-04] MEDS ORDERED: ROCURONIUM 50 MG/5 ML VIAL ONE (08:22)
[2021-11-04] MEDS ORDERED: OXYTOCIN 10 UNIT/ML VIAL ONE ×2 (08:22→08:38)
[2021-11-04] MEDS ORDERED: TRANEXAMIC ACID 1,000 MG/10 ML VIAL ONE (08:22)
[2021-11-04] MEDS ORDERED: PROPOFOL 200 MG/20 ML VIAL IVP ONE (08:22)
[2021-11-04] MEDS ORDERED: PHENYLEPHRINE 10 MG/ML VIAL ONE (08:22)
[2021-11-04] MEDS ORDERED: CALCIUM CHLORIDE ABBOJECT 1000MG/10 ML SYRINGE ONE (08:22)
[2021-11-04] MEDS ORDERED: SUGAMMADEX 200 MG/2 ML VIAL IVP ONE (08:42)
[2021-11-04 08:45] LABS: PLATELET ESTIMATE, MANUAL NORMAL (130-450,000) (NORMAL); PLATELET MORPHOLOGY NORMAL APPEARANCE (NORMAL); RBC MORPHOLOGY (MULTIPLE) 1+ MICROCYTOSIS (NORMAL)
[2021-11-04 08:46] LABS: DIFFERENTIAL COMMENT MANUAL=AUTO DIFF; WBC MORPHOLOGY (MULTIPLE) NORMAL APPEARANCE (NORMAL)
[2021-11-04] MEDS: oxyCODONE 5 MG TABLET PO PRN ×3 (09:57→19:52)
[2021-11-04] MEDS ORDERED: CYANOCOBALAMIN 1,000 MCG/ML VIAL IM ONE (11:01)
--- NOTE | 2021-11-04 11:08 | PROVIDER PROGRESS NOTE ---
Subjective - Prog Note Date Prog Note Date: 11/04/21 Prog Note Time: 10:00 - Subjective Pt reports feeling: Improved Subjective: Patient reports pain to be manageable this am. Has been tolerating po without nausea or vomiting. Has stood up and taken three steps. No palpitations or dizziness. Caldwell catheter remains in place and has had excellent urine output. Has received lovenox this am. No bleeding. Objective - Vital Signs/Intake & Output Reviewed Vital Signs: Yes Vital Signs: Vital Signs x48h Temp Pulse Resp BP Pulse Ox 11/04/21 07:29 98.8 F 89 18 111/49 L 100 11/04/21 06:51 100 18 114/44 L 100 11/04/21 04:33 98.4 F 79 18 113/51 L 98 Intake & Output: Intake & Output 11/01/21 11/02/21 11/03/21 11/04/21 23:59 23:59 23:59 23:59 Intake Total 2600 4715.599 7740.667 Output Total 225 775 Balance 2600 858.333 446.667 - Objective General Appearance: positive: No acute distress Eyes Bilateral: positive: Normal inspection Eyes: OD Photophobia Respiratory: positive: No respiratory distress Cardiovascular: positive: Other (RR) Peripheral Pulses: 1+ Radial (R), 1+ Radial (L), 1+ Dorsalis pedis (R), 1+ Dorsalis pedis (L) Abdomen: positive: Other (soft, appropriately tender. Dressing CDI) Extremities: positive: Non-tender, Other (SCDs in place) Neurologic/Psychiatric: positive: Oriented x3 - Lab Results Fish Bones: 11/04/21 07:18 11/04/21 07:18 Other Labs: Lab Results x24hrs 11/04/21 11/04/21 11/04/21 Range/Units 07:18 07:18 00:51 WBC 29.4 H 18.9 H (4.8-10.8) x10^3/uL RBC 2.82 L 2.86 L (4.20-5.40) 10^6/uL Hgb 6.5 L* 6.7 L* (12.0-16.0) g/dL Hct 21.5 L 22.1 L (37.0-47.0) % MCV 76.2 L 77.3 L (81.0-99.0) fL MCH 23.0 L 23.4 L (27.0-31.0) pg MCHC 30.2 L 30.3 L (32.0-36.0) g/dL RDW 25.1 H 24.2 H (12.0-15.0) % Plt Count 258 252 (130-450) 10^3/uL MPV 10.4 10.0 (7.9-10.8) fL Neut # (Auto) 26.0 H 16.8 H (1.5-6.6) 10^3/uL Lymph # (Auto) 1.4 L 0.7 L (1.5-3.5) 10^3/uL [place] # (Auto) 1.6 H 1.2 H (0.0-1.0) 10^3/uL Eos # (Auto) 0.1 0.0 (0.0-0.7) 10^3/uL Baso # (Auto) 0.1 0.0 (0.0-0.1) 10^3/uL Absolute Nucleated RBC 0.06 0.06 x10^3/uL Band Neuts % (Manual) Not Reportable Abnorm Lymph % (Manual) Not Reportable Nucleated RBC % 0.2 0.3 /100WBC Neutrophils # (Manual) Not Reportable Lymphocytes # (Manual) Not Reportable Monocytes # (Manual) Not Reportable Eosinophils # (Manual) Not Reportable Basophils # (Manual) Not Reportable Differential Comment MANUAL=AUTO DIFF Manual Slide Review Indicated WBC Morphology NORMAL APPEARANCE (NORMAL) Platelet Estimate NORMAL (130-450,000) (NORMAL) Platelet Morphology NORMAL APPEARANCE (NORMAL) RBC Morph Micro Appear 1+ MICROCYTOSIS (NORMAL) VBG pH (7.31-7.41) Ionized Calcium (1.15-1.33) mmol/L Sodium 135 (135-145) mmol/L Potassium 3.5 (3.5-5.0) mmol/L Chloride 105 (101-111) mmol/L Carbon Dioxide 19 L (21-32) mmol/L Anion Gap 11.0 (6-13) BUN 7 (6-20) mg/dL Creatinine 0.8 (0.4-1.0) mg/dL Estimated GFR (MDRD) 77 L (>89) Glucose 130 H (70-100) mg/dL Calcium 7.6 L (8.5-10.3) mg/dL Total Bilirubin 0.6 (0.2-1.0) mg/dL AST 21 (10-42) IU/L ALT 27 (10-60) IU/L Alkaline Phosphatase 59 (42-121) IU/L Total Protein 5.4 L (6.7-8.2) g/dL Albumin 2.6 L (3.2-5.5) g/dL Globulin 2.8 (2.1-4.2) g/dL Albumin/Globulin Ratio 0.9 L (1.0-2.2) Blood Type Antibody Screen Crossmatch IS Only 11/04/21 11/03/21 11/03/21 Range/Units 00:51 13:19 12:47 WBC 23.4 H (4.8-10.8) x10^3/uL RBC 3.40 L (4.20-5.40) 10^6/uL Hgb 8.0 L (12.0-16.0) g/dL Hct 25.8 L (37.0-47.0) % MCV 75.9 L (81.0-99.0) fL MCH 23.5 L (27.0-31.0) pg MCHC 31.0 L (32.0-36.0) g/dL RDW 24.7 H (12.0-15.0) % Plt Count 289 (130-450) 10^3/uL MPV 9.8 (7.9-10.8) fL Neut # (Auto) 21.7 H (1.5-6.6) 10^3/uL Lymph # (Auto) 0.6 L (1.5-3.5) 10^3/uL [place] # (Auto) 0.7 (0.0-1.0) 10^3/uL Eos # (Auto) 0.0 (0.0-0.7) 10^3/uL Baso # (Auto) 0.1 (0.0-0.1) 10^3/uL Absolute Nucleated RBC 0.09 x10^3/uL Band Neuts % (Manual) Not Reportable Abnorm Lymph % (Manual) Not Reportable Nucleated RBC % 0.4 /100WBC Neutrophils # (Manual) Not Reportable Lymphocytes # (Manual) Not Reportable Monocytes # (Manual) Not Reportable Eosinophils # (Manual) Not Reportable Basophils # (Manual) Not Reportable Differential Comment MANUAL=AUTO DIFF Manual Slide Review Indicated WBC Morphology (NORMAL) Platelet Estimate NORMAL (130-450,000) (NORMAL) Platelet Morphology NORMAL APPEARANCE (NORMAL) RBC Morph Micro Appear 1+ POLYCHROMASIA (NORMAL) VBG pH 7.362 (7.31-7.41) Ionized Calcium 1.01 L (1.15-1.33) mmol/L Sodium 134 L (135-145) mmol/L Potassium 3.9 (3.5-5.0) mmol/L Chloride 102 (101-111) mmol/L Carbon Dioxide 21 (21-32) mmol/L Anion Gap 11.0 (6-13) BUN 8 (6-20) mg/dL Creatinine 0.9 (0.4-1.0) mg/dL Estimated GFR (MDRD) 67 L (>89) Glucose 168 H (70-100) mg/dL Calcium 7.5 L (8.5-10.3) mg/dL Total Bilirubin 0.5 (0.2-1.0) mg/dL AST 22 (10-42) IU/L ALT 27 (10-60) IU/L Alkaline Phosphatase 61 (42-121) IU/L Total Protein 6.0 L (6.7-8.2) g/dL Albumin 2.7 L (3.2-5.5) g/dL Globulin 3.3 (2.1-4.2) g/dL Albumin/Globulin Ratio 0.8 L (1.0-2.2) Blood Type Antibody Screen Crossmatch IS Only 11/03/21 11/03/21 11/02/21 Range/Units 12:40 12:40 11:00 WBC 16.8 H (4.8-10.8) x10^3/uL RBC 3.15 L (4.20-5.40) 10^6/uL Hgb 7.4 L (12.0-16.0) g/dL Hct 24.1 L (37.0-47.0) % MCV 76.5 L (81.0-99.0) fL MCH 23.5 L (27.0-31.0) pg MCHC 30.7 L (32.0-36.0) g/dL RDW 25.3 H (12.0-15.0) % Plt Count 262 (130-450) 10^3/uL MPV 9.8 (7.9-10.8) fL Neut # (Auto) 14.3 H (1.5-6.6) 10^3/uL Lymph # (Auto) 1.1 L (1.5-3.5) 10^3/uL [place] # (Auto) 0.5 (0.0-1.0) 10^3/uL Eos # (Auto) 0.1 (0.0-0.7) 10^3/uL Baso # (Auto) 0.1 (0.0-0.1) 10^3/uL Absolute Nucleated RBC 0.13 x10^3/uL Band Neuts % (Manual) Abnorm Lymph % (Manual) Nucleated RBC % 0.8 /100WBC Neutrophils # (Manual) Lymphocytes # (Manual) Monocytes # (Manual) Eosinophils # (Manual) Basophils # (Manual) Differential Comment Manual Slide Review Indicated WBC Morphology (NORMAL) Platelet Estimate NORMAL (130-450,000) (NORMAL) Platelet Morphology 1+ GIANT PLATELETS (NORMAL) RBC Morph Micro Appear 1+ SCHISTOCYTES (NORMAL) VBG pH (7.31-7.41) Ionized Calcium (1.15-1.33) mmol/L Sodium 133 L (135-145) mmol/L Potassium 4.1 (3.5-5.0) mmol/L Chloride 103 (101-111) mmol/L Carbon Dioxide 22 (21-32) mmol/L Anion Gap 8.0 (6-13) BUN 8 (6-20) mg/dL Creatinine 0.8 (0.4-1.0) mg/dL Estimated GFR (MDRD) 77 L (>89) Glucose 185 H (70-100) mg/dL Calcium 7.4 L (8.5-10.3) mg/dL Total Bilirubin 0.9 (0.2-1.0) mg/dL AST 20 (10-42) IU/L ALT 24 (10-60) IU/L Alkaline Phosphatase 62 (42-121) IU/L Total Protein 5.6 L (6.7-8.2) g/dL Albumin 2.7 L (3.2-5.5) g/dL Globulin 2.9 (2.1-4.2) g/dL Albumin/Globulin Ratio 0.9 L (1.0-2.2) Blood Type AB POSITIVE Antibody Screen NEGATIVE Crossmatch IS Only See Detail Assessment/Plan - Problem List (1) S/P hysterectomy Impression: POD#1 s/p complicated hysterectomy inthe setting of profound and acute blood lo ss anemia. PROFOUND ACUTE BLOOD LOSS ANEMIA: Patient received 5 units of pRBC and 1 unit FFP yesterday. HCT at 6.4 this am, however, patient has had anemia with baseline hgb between 7- 9 in the last year. No symptoms and vital signs wnl, UOP excellent. -Will consider transfusion is becomes SOB, dizzy/lightheaded, or has palpitations- or should symptoms impair ambulation. -At present, will provide iron infusion as well as B12 and folate VTE PPX: SCDs and Lovenox -Received lovenox at ppx dose this am and will continue while in house. FEN: Tolerating po. See iron/B12/folate supplementation above -Calcium levels appear low but adjust to normal when accounting for low albumin levels -Electrolytes otherwise within normal range. -Glucose, markedly elevated at presentation, appropriate in post op period. ID: -Elevated WBC post op but afebrile. Likely stress response -Transition between open and vaginal approach to surgery increases risk of contamination and will continue abx for 24 hours post op -Cefazolin 1g IV Q8H and metronidazole 500 mg IV bid POSTOP: Continue with routine postop care -Encourage ambulation -DC caldwell when ambulatory -Transition to po pain meds -Tolerating po DISPO: Anticipate DC home tomorrow
[2021-11-04] MEDS ORDERED: FERRIC GLUCONATE 125 MG in SODIUM CHLORIDE 0.9% 100ML 100 ML IV ONE (12:00)
[2021-11-04] MEDS ORDERED: FOLIC ACID INJ 1 MG in SODIUM CHLORIDE 0.9% 1,000 ML IV SCH (12:00)
[2021-11-04] MEDS: FOLIC ACID 1 MG TABLET PO SCH (12:15)
[2021-11-04] MEDS: FAMOTIDINE 20 MG TABLET PO SCH ×2 (12:48→20:21)
[2021-11-04] MEDS: CALCIUM CARBONATE CHEW 500 MG TABLET PO SCH ×2 (12:48→20:17)
--- NOTE | 2021-11-04 17:05 | PROVIDER PROGRESS NOTE ---
Subjective - Prog Note Date Prog Note Date: 11/04/21 Prog Note Time: 17:03 - Subjective Subjective: Patient reports that she was very dizzy when attempting to stand and that it felt like the room was spinning. Orthostatics were performed and were appropri ate. However, she has been unable to walk to the bathroom and caldwell remains in place. No flatus but able to tolerate po. Objective - Vital Signs/Intake & Output Reviewed Vital Signs: Yes Vital Signs: Vital Signs x48h Temp Pulse Resp BP BP Pulse Ox 11/04/21 16:04 98.2 F 81 20 113/46 L 110/50 L 100 11/04/21 15:00 98.4 F 20 11/04/21 11:00 99.0 F 89 18 117/45 L 100 Intake & Output: Intake & Output 11/01/21 11/02/21 11/03/21 11/04/21 23:59 23:59 23:59 23:59 Intake Total 2600 7328.928 0710.667 Output Total 225 1275 Balance 2600 216.020 5852.667 - Objective General Appearance: positive: No acute distress Neck: positive: Nml inspection Respiratory: positive: No respiratory distress, Breath sounds nml Cardiovascular: positive: Regular rate & rhythm, Systolic murmur, Other (holosystolic murmur) Abdomen: positive: Other (appropriately tender. Non-distended.) Skin: positive: Pallor Extremities: positive: Non-tender, Other (SCDs are not in place) Neurologic/Psychiatric: positive: Oriented x3 - Lab Results Fish Bones: 11/04/21 07:18 11/04/21 07:18 Other Labs: Lab Results x24hrs 11/04/21 11/04/21 11/04/21 Range/Units 07:18 07:18 00:51 WBC 29.4 H 18.9 H (4.8-10.8) x10^3/uL RBC 2.82 L 2.86 L (4.20-5.40) 10^6/uL Hgb 6.5 L* 6.7 L* (12.0-16.0) g/dL Hct 21.5 L 22.1 L (37.0-47.0) % MCV 76.2 L 77.3 L (81.0-99.0) fL MCH 23.0 L 23.4 L (27.0-31.0) pg MCHC 30.2 L 30.3 L (32.0-36.0) g/dL RDW 25.1 H 24.2 H (12.0-15.0) % Plt Count 258 252 (130-450) 10^3/uL MPV 10.4 10.0 (7.9-10.8) fL Neut # (Auto) 26.0 H 16.8 H (1.5-6.6) 10^3/uL Lymph # (Auto) 1.4 L 0.7 L (1.5-3.5) 10^3/uL [place] # (Auto) 1.6 H 1.2 H (0.0-1.0) 10^3/uL Eos # (Auto) 0.1 0.0 (0.0-0.7) 10^3/uL Baso # (Auto) 0.1 0.0 (0.0-0.1) 10^3/uL Absolute Nucleated RBC 0.06 0.06 x10^3/uL Band Neuts % (Manual) Not Reportable Abnorm Lymph % (Manual) Not Reportable Nucleated RBC % 0.2 0.3 /100WBC Neutrophils # (Manual) Not Reportable Lymphocytes # (Manual) Not Reportable Monocytes # (Manual) Not Reportable Eosinophils # (Manual) Not Reportable Basophils # (Manual) Not Reportable Differential Comment MANUAL=AUTO DIFF Manual Slide Review Indicated WBC Morphology NORMAL APPEARANCE (NORMAL) Platelet Estimate NORMAL (130-450,000) (NORMAL) Platelet Morphology NORMAL APPEARANCE (NORMAL) RBC Morph Micro Appear 1+ MICROCYTOSIS (NORMAL) Sodium 135 (135-145) mmol/L Potassium 3.5 (3.5-5.0) mmol/L Chloride 105 (101-111) mmol/L Carbon Dioxide 19 L (21-32) mmol/L Anion Gap 11.0 (6-13) BUN 7 (6-20) mg/dL Creatinine 0.8 (0.4-1.0) mg/dL Estimated GFR (MDRD) 77 L (>89) Glucose 130 H (70-100) mg/dL Calcium 7.6 L (8.5-10.3) mg/dL Total Bilirubin 0.6 (0.2-1.0) mg/dL AST 21 (10-42) IU/L ALT 27 (10-60) IU/L Alkaline Phosphatase 59 (42-121) IU/L Total Protein 5.4 L (6.7-8.2) g/dL Albumin 2.6 L (3.2-5.5) g/dL Globulin 2.8 (2.1-4.2) g/dL Albumin/Globulin Ratio 0.9 L (1.0-2.2) 11/04/21 Range/Units 00:51 WBC (4.8-10.8) x10^3/uL RBC (4.20-5.40) 10^6/uL Hgb (12.0-16.0) g/dL Hct (37.0-47.0) % MCV (81.0-99.0) fL MCH (27.0-31.0) pg MCHC (32.0-36.0) g/dL RDW (12.0-15.0) % Plt Count (130-450) 10^3/uL MPV (7.9-10.8) fL Neut # (Auto) (1.5-6.6) 10^3/uL Lymph # (Auto) (1.5-3.5) 10^3/uL [place] # (Auto) (0.0-1.0) 10^3/uL Eos # (Auto) (0.0-0.7) 10^3/uL Baso # (Auto) (0.0-0.1) 10^3/uL Absolute Nucleated RBC x10^3/uL Band Neuts % (Manual) Abnorm Lymph % (Manual) Nucleated RBC % /100WBC Neutrophils # (Manual) Lymphocytes # (Manual) Monocytes # (Manual) Eosinophils # (Manual) Basophils # (Manual) Differential Comment Manual Slide Review WBC Morphology (NORMAL) Platelet Estimate (NORMAL) Platelet Morphology (NORMAL) RBC Morph Micro Appear (NORMAL) Sodium 134 L (135-145) mmol/L Potassium 3.9 (3.5-5.0) mmol/L Chloride 102 (101-111) mmol/L Carbon Dioxide 21 (21-32) mmol/L Anion Gap 11.0 (6-13) BUN 8 (6-20) mg/dL Creatinine 0.9 (0.4-1.0) mg/dL Estimated GFR (MDRD) 67 L (>89) Glucose 168 H (70-100) mg/dL Calcium 7.5 L (8.5-10.3) mg/dL Total Bilirubin 0.5 (0.2-1.0) mg/dL AST 22 (10-42) IU/L ALT 27 (10-60) IU/L Alkaline Phosphatase 61 (42-121) IU/L Total Protein 6.0 L (6.7-8.2) g/dL Albumin 2.7 L (3.2-5.5) g/dL Globulin 3.3 (2.1-4.2) g/dL Albumin/Globulin Ratio 0.8 L (1.0-2.2) Assessment/Plan - Problem List (1) S/P hysterectomy Impression: Remains anemic post massive transfusion and also symptomatic Will recheck CBC for baseline as well as ionized calcium Cross matched for 2 units; will plan on transfusing with one unit post CBC Slow to progress postop with inability to get up and OOB/ambulate NOTE: In OR and in post op period, differential in BP from right and left arms. 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
[2021-11-04 17:50] LABS: BASOPHILS % (AUTO) 0.3 %; CALCIUM, IONIZED 1.05 mmol/L (1.15-1.33); EOSINOPHILS % (AUTO) 0.1 %; HCT - HEMATOCRIT 21.2 % (37.0-47.0); LYMPHOCYTES % (AUTO) 5.8 %; MEAN CORPUSCULAR HGB CONC 29.7 g/dL (32.0-36.0); MEAN CORPUSCULAR VOLUME 77.4 fL (81.0-99.0); MONOCYTES % (AUTO) 5.6 %; NEUTROPHILS % (AUTO) 87.3 %; RED BLOOD COUNT 2.74 10^6/uL (4.20-5.40); RED CELL DISTRIBUTION WIDTH 25.2 % (12.0-15.0); VBG PH 7.363 (7.31-7.41); WHITE BLOOD COUNT 27.8 x10^3/uL (4.8-10.8)
[2021-11-04 17:53] LABS: HGB - HEMOGLOBIN 6.3 g/dL (12.0-16.0)
[2021-11-04 17:56] LABS: PLT - PLATELET COUNT 307 10^3/uL (130-450)
[2021-11-04 17:57] LABS: ABNORMAL LYMPHS % (MANUAL) 0 %
[2021-11-04 18:33] LABS: BAND NEUTROPHILS % (MANUAL) 3 %; LYMPHOCYTES # (MANUAL) 1.9 10^3/uL (1.5-3.5); LYMPHOCYTES % (MANUAL) 7 %; MONOCYTES # (MANUAL) 1.9 10^3/uL (0.0-1.0); NEUTROPHILS # (MANUAL) 23.9 10^3/uL (1.5-6.6); NUCLEATED RBC (MANUAL) 1 %
[2021-11-04 18:34] LABS: PLATELET ESTIMATE, MANUAL NORMAL (130-450,000) (NORMAL)
[2021-11-04 18:35] LABS: DIFFERENTIAL COMMENT MANUAL DIFFERENTIAL; PLATELET MORPHOLOGY NORMAL APP (NORMAL)
[2021-11-04 22:19] LABS: HGB - HEMOGLOBIN 7.1 g/dL (12.0-16.0)
[2021-11-05] MEDS: ACETAMINOPHEN 500 MG TABLET PO SCH ×4 (01:25→23:32)
[2021-11-05] MEDS: oxyCODONE 5 MG TABLET PO PRN ×4 (01:28→20:50)
[2021-11-05] MEDS: SODIUM CHLORIDE FLUSH 0.9% 10 ML SYRINGE IVP SCH ×4 (01:28→23:32)
[2021-11-05] MEDS: ceFAZolin 1 GM in SODIUM CHLORIDE 0.9% MINIBAG 100 ML IV SCH ×2 (04:37→12:17)
[2021-11-05] MEDS: SODIUM CHLORIDE FLUSH 0.9% 10 ML SYRINGE IVP PRN (04:37)
[2021-11-05] MEDS: GABAPENTIN 300 MG CAPSULE PO PRN ×2 (04:37→20:50)
[2021-11-05] MEDS: LACTATED RINGERS 1,000 ML IV SCH ×2 (04:38→19:11)
[2021-11-05] MEDS: metroNIDAZOLE 500 MG/100 ML 500 MG/100 ML BAG IV SCH ×2 (04:38→13:00)
[2021-11-05] MEDS: INSULIN ASPART 300 UNIT/3 ML PEN SUBQ SCH ×4 (07:21→20:51)
[2021-11-05] MEDS: CALCIUM CARBONATE CHEW 500 MG TABLET PO SCH ×2 (08:53→20:50)
[2021-11-05] MEDS: DOCUSATE SODIUM 100 MG CAPSULE PO SCH ×2 (08:55→20:50)
[2021-11-05] MEDS: FAMOTIDINE 20 MG TABLET PO SCH ×2 (08:56→20:50)
[2021-11-05] MEDS: ENOXAPARIN 40 MG/0.4 ML SYRINGE SUBQ SCH (08:57)
[2021-11-05] MEDS ORDERED: CALCIUM GLUCONATE 1,000 MG in SODIUM CHLORIDE 0.9% 50 ML IV ONE ×2 (09:00→18:30)
[2021-11-05] MEDS: FOLIC ACID 1 MG TABLET PO SCH (10:55)
[2021-11-05 13:32] LABS: BASOPHILS # (AUTO) 0.1 10^3/uL (0.0-0.1); BASOPHILS % (AUTO) 0.3 %; CALCIUM, IONIZED 1.1 mmol/L (1.15-1.33); EOSINOPHILS # (AUTO) 0.2 10^3/uL (0.0-0.7); HCT - HEMATOCRIT 22.2 % (37.0-47.0); LYMPHOCYTES # (AUTO) 1.2 10^3/uL (1.5-3.5); LYMPHOCYTES % (AUTO) 7.9 %; MEAN CORPUSCULAR HEMOGLOBIN 23.9 pg (27.0-31.0); MEAN CORPUSCULAR HGB CONC 30.2 g/dL (32.0-36.0); MEAN CORPUSCULAR VOLUME 79.3 fL (81.0-99.0); MEAN PLATELET VOLUME 10.6 fL (7.9-10.8); MONOCYTES # (AUTO) 1.1 10^3/uL (0.0-1.0); MONOCYTES % (AUTO) 6.9 %; NEUTROPHILS # (AUTO) 13.1 10^3/uL (1.5-6.6); NEUTROPHILS % (AUTO) 83.1 %; NUCLEATED RED BLOOD CELLS AUTO 0.6 /100WBC; PLT - PLATELET COUNT 302 10^3/uL (130-450); VBG PH 7.404 (7.31-7.41); WHITE BLOOD COUNT 15.7 x10^3/uL (4.8-10.8)
[2021-11-05 13:42] LABS: HGB - HEMOGLOBIN 6.7 g/dL (12.0-16.0)
[2021-11-05 14:00] LABS: THYROID STIMULATING HORMONE 1.62 uIU/mL (0.34-5.60)
[2021-11-05 14:02] LABS: FREE T4 (FREE THYROXINE) 1.42 ng/dL (0.58-1.64)
--- NOTE | 2021-11-05 18:30 | PROVIDER PROGRESS NOTE ---
Subjective - Prog Note Date Prog Note Date: 11/05/21 Prog Note Time: 18:27 - Subjective Subjective: Late entry: Patient was seen at about 10 am this morning. She had received one unit of PRBC over night. She was feeling an improvement but was still feelign some dizziness when up and ambulating. She was able to ambulate to the bathroom and had a bowel movement. Reports difficulty with twisting to clean herself after voiding. Caldwell remains in place. She is tolerating po. Reports she does not yet feel fully clear headed but the heaviness in her chest cleared after the unit of blod. Also received calcium gluconate. Objective - Vital Signs/Intake & Output Reviewed Vital Signs: Yes Vital Signs: Vital Signs x48h Temp Pulse Pulse Resp BP BP BP 11/05/21 17:13 98.4 F 81 20 127/56 L 11/05/21 15:48 98.8 F 77 20 122/42 L 11/05/21 14:53 98.6 F 75 18 116/48 L 11/05/21 14:43 98.4 F 73 18 107/51 L 11/05/21 14:33 98.6 F 81 18 116/49 L 11/05/21 12:38 82 18 121/62 Pulse Ox 11/05/21 17:13 11/05/21 15:48 100 11/05/21 14:53 11/05/21 14:43 11/05/21 14:33 11/05/21 12:38 100 Intake & Output: Intake & Output 11/02/21 11/03/21 11/04/21 11/05/21 23:59 23:59 23:59 23:59 Intake Total 2600 2016.077 2032.000 2845.334 Output Total 225 1700 1575 Balance 2600 587.516 9845.000 1270.334 - Objective General Appearance: positive: No acute distress Neck: positive: Nml inspection Respiratory: positive: No respiratory distress, Breath sounds nml Cardiovascular: positive: Regular rate & rhythm, Systolic murmur Abdomen: positive: Other (soft and non-distended. Less tender to palpation. Dressing removed. Steris in place, CDI) Back: positive: Nml inspection Skin: positive: Color nml Extremities: positive: Non-tender, Other (SCDs in place) Neurologic/Psychiatric: positive: Oriented x3 - Lab Results Fish Bones: 11/05/21 13:22 11/04/21 07:18 Other Labs: Lab Results x24hrs 11/05/21 11/05/21 11/05/21 Range/Units 13:22 13:22 13:22 WBC 15.7 H (4.8-10.8) x10^3/uL RBC 2.80 L (4.20-5.40) 10^6/uL Hgb 6.7 L* (12.0-16.0) g/dL Hct 22.2 L (37.0-47.0) % MCV 79.3 L (81.0-99.0) fL MCH 23.9 L (27.0-31.0) pg MCHC 30.2 L (32.0-36.0) g/dL RDW 24.0 H (12.0-15.0) % Plt Count 302 (130-450) 10^3/uL MPV 10.6 (7.9-10.8) fL Neut # (Auto) 13.1 H Lymph # (Auto) 1.2 L [place] # (Auto) 1.1 H Eos # (Auto) 0.2 Baso # (Auto) 0.1 Absolute Nucleated RBC 0.10 Total Counted Band Neuts % (Manual) (0 - 10) % Abnorm Lymph % (Manual) % Nucleated RBC % 0.6 Neutrophils # (Manual) (1.5-6.6) 10^3/uL Lymphocytes # (Manual) (1.5-3.5) 10^3/uL Monocytes # (Manual) (0.0-1.0) 10^3/uL Eosinophils # (Manual) (0-0.7) 10^3/uL Basophils # (Manual) (0-0.1) 10^3/uL Nucleated RBCs % Differential Comment Platelet Estimate (NORMAL) Platelet Morphology (NORMAL) RBC Morph Micro Appear (NORMAL) VBG pH 7.404 (7.31-7.41) Ionized Calcium 1.10 L (1.15-1.33) mmol/L TSH 1.62 (0.34-5.60) uIU/mL Free T4 1.42 (0.58-1.64) ng/dL Blood Type Antibody Screen Crossmatch IS Only 11/04/21 11/04/21 11/02/21 Range/Units 22:14 17:43 11:00 WBC (4.8-10.8) x10^3/uL RBC (4.20-5.40) 10^6/uL Hgb 7.1 L (12.0-16.0) g/dL Hct 23.0 L (37.0-47.0) % MCV (81.0-99.0) fL MCH (27.0-31.0) pg MCHC (32.0-36.0) g/dL RDW (12.0-15.0) % Plt Count (130-450) 10^3/uL MPV (7.9-10.8) fL Neut # (Auto) Not Reportable Lymph # (Auto) Not Reportable [place] # (Auto) Not Reportable Eos # (Auto) Not Reportable Baso # (Auto) Not Reportable Absolute Nucleated RBC Not Reportable Total Counted 100 Band Neuts % (Manual) 3 (0 - 10) % Abnorm Lymph % (Manual) 0 % Nucleated RBC % Not Reportable Neutrophils # (Manual) 23.9 H (1.5-6.6) 10^3/uL Lymphocytes # (Manual) 1.9 (1.5-3.5) 10^3/uL Monocytes # (Manual) 1.9 H (0.0-1.0) 10^3/uL Eosinophils # (Manual) 0.0 (0-0.7) 10^3/uL Basophils # (Manual) 0.0 (0-0.1) 10^3/uL Nucleated RBCs 1 % Differential Comment MANUAL DIFFERENTIAL Platelet Estimate NORMAL (130-450,000) (NORMAL) Platelet Morphology NORMAL [place] (NORMAL) RBC Morph Micro Appear 1+ SCHISTOCYTES (NORMAL) VBG pH (7.31-7.41) Ionized Calcium (1.15-1.33) mmol/L TSH (0.34-5.60) uIU/mL Free T4 (0.58-1.64) ng/dL Blood Type AB POSITIVE Antibody Screen NEGATIVE Crossmatch IS Only See Detail Assessment/Plan - Problem List (1) S/P hysterectomy Impression: POD#2 s/p emergent hysterectomy for acute/profound anemia -Slow return of function limited by anemia. -Has received 6 units of PRBC and 1 unit FFP as wellas one dose of ferric gluconate and B12. -Rechecked H&H. Hgb again < 7; additional unit of PRBC given for total of 6 units PRBC and one unit FFP ETA: Patient reports feeling much better after the 7th unit of blood. -Checking post-transfuion HCT at 19:30 -Giving additional dose of calcium gluconate -Will give additional dose of ferric gluconate -DC caldwell. If unable to ambulate during the evening, will use Purewick although ambulation should be encouraged. -Anticipate DC home in am pending appropriate rise in H/H -Lovenox 40 mg SQ daily while in-patient -DC cefazolin and metronidazole Reviewed differential between BPs in right and left arms and hx of ; discussed with ICU. Recommends outpatient ECHO and cards consult.
[2021-11-05] MEDS ORDERED: FERRIC GLUCONATE 125 MG in SODIUM CHLORIDE 0.9% 100ML 100 ML IV ONE (19:30)
[2021-11-05 19:32] LABS: BASOPHILS # (AUTO) 0.1 10^3/uL (0.0-0.1); BASOPHILS % (AUTO) 0.4 %; EOSINOPHILS # (AUTO) 0.2 10^3/uL (0.0-0.7); EOSINOPHILS % (AUTO) 1.4 %; HCT - HEMATOCRIT 24.9 % (37.0-47.0); HGB - HEMOGLOBIN 7.7 g/dL (12.0-16.0); LYMPHOCYTES # (AUTO) 1.5 10^3/uL (1.5-3.5); LYMPHOCYTES % (AUTO) 10.4 %; MEAN CORPUSCULAR HEMOGLOBIN 24.8 pg (27.0-31.0); MEAN CORPUSCULAR HGB CONC 30.9 g/dL (32.0-36.0); MEAN CORPUSCULAR VOLUME 80.1 fL (81.0-99.0); MEAN PLATELET VOLUME 10.2 fL (7.9-10.8); MONOCYTES # (AUTO) 1.1 10^3/uL (0.0-1.0); MONOCYTES % (AUTO) 7.9 %; NEUTROPHILS # (AUTO) 11.4 10^3/uL (1.5-6.6); NEUTROPHILS % (AUTO) 79.2 %; NRBC ABSOLUTE COUNT (AUTO) 0.12 x10^3/uL; NUCLEATED RED BLOOD CELLS AUTO 0.8 /100WBC; PLT - PLATELET COUNT 309 10^3/uL (130-450); RED BLOOD COUNT 3.11 10^6/uL (4.20-5.40); RED CELL DISTRIBUTION WIDTH 22.8 % (12.0-15.0); WHITE BLOOD COUNT 14.4 x10^3/uL (4.8-10.8)
[2021-11-05 20:12] LABS: PLATELET ESTIMATE, MANUAL NORMAL (130-450,000) (NORMAL); PLATELET MORPHOLOGY 1+ GIANT PLATELETS (NORMAL); SLIDE REVIEW? Indicated
[2021-11-05] MEDS: SIMETHICONE CHEW 80 MG TABLET PO PRN (20:50)
[2021-11-06] MEDS: oxyCODONE 5 MG TABLET PO PRN ×3 (01:14→13:49)
[2021-11-06] MEDS: LACTATED RINGERS 1,000 ML IV SCH ×2 (05:06→15:02)
[2021-11-06] MEDS: DOCUSATE SODIUM 100 MG CAPSULE PO SCH (08:25)
[2021-11-06] MEDS: GABAPENTIN 300 MG CAPSULE PO PRN (08:25)
[2021-11-06] MEDS: FAMOTIDINE 20 MG TABLET PO SCH (08:26)
[2021-11-06] MEDS: ACETAMINOPHEN 500 MG TABLET PO SCH ×2 (08:27→15:42)
[2021-11-06] MEDS: FOLIC ACID 1 MG TABLET PO SCH (08:27)
[2021-11-06] MEDS: ENOXAPARIN 40 MG/0.4 ML SYRINGE SUBQ SCH (08:28)
--- NOTE | 2021-11-06 10:34 | PROVIDER PROGRESS NOTE ---
Subjective - Prog Note Date Prog Note Date: 11/06/21 Prog Note Time: 10:32 - Subjective Subjective: Has had additional unit PRBC yesterday evening with appropriate rise. No longer feeling symptomatic. Has been up and out of bed for voided and has stooled. Pain well managed on medications. States she cannot ambulate on her own to the bathroom and is requesting a walker. Feels decompensated and months of self-imposed bed rest. Requeting walker for home use. Tolerating po. Objective - Vital Signs/Intake & Output Reviewed Vital Signs: Yes Vital Signs: Vital Signs x48h Temp Pulse Resp BP Pulse Ox 11/06/21 07:43 98.4 F 71 20 124/62 100 11/06/21 05:00 98.2 F 65 18 112/61 100 Intake & Output: Intake & Output 11/03/21 11/04/21 11/05/21 11/06/21 23:59 23:59 23:59 23:59 Intake Total 3819.696 5862.000 3787.001 1111.667 Output Total 225 1700 1875 Balance 374.807 6349.000 6304.472 7414.667 - Objective General Appearance: positive: No acute distress Eyes Bilateral: positive: Normal inspection Neck: positive: Nml inspection Respiratory: positive: No respiratory distress, Breath sounds nml Cardiovascular: positive: Regular rate & rhythm, Other (Continues to have holostystolic murmur) Peripheral Pulses: 2+ Dorsalis pedis (R), 2+ Dorsalis pedis (L) Abdomen: positive: Non-tender (Soft and ND. Minimal TTP; appropriate. Incision with steris in place CDI) Skin: positive: Color nml, Warm Extremities: positive: Non-tender, No pedal edema Neurologic/Psychiatric: positive: Oriented x3 - Lab Results Fish Bones: 11/05/21 19:27 11/04/21 07:18 Other Labs: Lab Results x24hrs 11/05/21 11/05/21 11/05/21 Range/Units 19:27 13:22 13:22 WBC 14.4 H (4.8-10.8) x10^3/uL RBC 3.11 L (4.20-5.40) 10^6/uL Hgb 7.7 L (12.0-16.0) g/dL Hct 24.9 L (37.0-47.0) % MCV 80.1 L (81.0-99.0) fL MCH 24.8 L (27.0-31.0) pg MCHC 30.9 L (32.0-36.0) g/dL RDW 22.8 H (12.0-15.0) % Plt Count 309 (130-450) 10^3/uL MPV 10.2 (7.9-10.8) fL Neut # (Auto) 11.4 H (1.5-6.6) 10^3/uL Lymph # (Auto) 1.5 (1.5-3.5) 10^3/uL [place] # (Auto) 1.1 H (0.0-1.0) 10^3/uL Eos # (Auto) 0.2 (0.0-0.7) 10^3/uL Baso # (Auto) 0.1 (0.0-0.1) 10^3/uL Absolute Nucleated RBC 0.12 x10^3/uL Nucleated RBC % 0.8 /100WBC Manual Slide Review Indicated Platelet Estimate NORMAL (130-450,000) (NORMAL) Platelet Morphology 1+ GIANT PLATELETS (NORMAL) RBC Morph Micro Appear 1+ SCHISTOCYTES (NORMAL) VBG pH 7.404 (7.31-7.41) Ionized Calcium 1.10 L (1.15-1.33) mmol/L TSH 1.62 (0.34-5.60) uIU/mL Free T4 1.42 (0.58-1.64) ng/dL Blood Type Antibody Screen Crossmatch IS Only 11/05/21 11/02/21 Range/Units 13:22 11:00 WBC 15.7 H (4.8-10.8) x10^3/uL RBC 2.80 L (4.20-5.40) 10^6/uL Hgb 6.7 L* (12.0-16.0) g/dL Hct 22.2 L (37.0-47.0) % MCV 79.3 L (81.0-99.0) fL MCH 23.9 L (27.0-31.0) pg MCHC 30.2 L (32.0-36.0) g/dL RDW 24.0 H (12.0-15.0) % Plt Count 302 (130-450) 10^3/uL MPV 10.6 (7.9-10.8) fL Neut # (Auto) 13.1 H (1.5-6.6) 10^3/uL Lymph # (Auto) 1.2 L (1.5-3.5) 10^3/uL [place] # (Auto) 1.1 H (0.0-1.0) 10^3/uL Eos # (Auto) 0.2 (0.0-0.7) 10^3/uL Baso # (Auto) 0.1 (0.0-0.1) 10^3/uL Absolute Nucleated RBC 0.10 x10^3/uL Nucleated RBC % 0.6 /100WBC Manual Slide Review Platelet Estimate (NORMAL) Platelet Morphology (NORMAL) RBC Morph Micro Appear (NORMAL) VBG pH (7.31-7.41) Ionized Calcium (1.15-1.33) mmol/L TSH (0.34-5.60) uIU/mL Free T4 (0.58-1.64) ng/dL Blood Type AB POSITIVE Antibody Screen NEGATIVE Crossmatch IS Only See Detail Assessment/Plan - Problem List (1) S/P hysterectomy Impression: POD#3 s/p emergent hysterectomy in setting of profound anemia -Slow return of function limited first by by anemia and now with decompenstation -Has received 7 units of PRBC and 1 unit FFP as well as 2 doses of ferric gluconate and one dose of B12 and folate supplementation -H&H>7 and patient no longer symptomatic -Will continue oral iron supplementation POST OP: -Tolerating po -Has been voiding and stooling -Pain well managed. -Ambulation a limitation. Patient states legs become shaky after a few steps and attributes this to prolonged bed rest complicated by anemia nd surgery. *Requests walker for home use but has not been assessed by PT *Stat PT consult ordered to assess patient. If patient is decompensated to the point that she cannot ambulate to the bathroom, disposition to SNF may be indicated. PPX: -Lovenox 40 mg SQ daily while in-patient. Recommend continued use of SCDs *Reviewed that she does not meet criteria for outpatient Lovenox but it is expected that she would be outof bed and mobilizing every 2 hours at home, while not sleeping. Reviewed risks of major surgery, transfusion, and bedrest in terms of VTE risk. -DC cefazolin and metronidazole CV: Reviewed differential between BPs in right and left arms and hx of ; discussed with ICU. Recommends outpatient ECHO and cards consult. -Obtaining EKG prior to discharge DISPO: Anticipate DC today. Disposition of home vs SNF pending. Would be good candidate for outpatient PT.
--- NOTE | 2021-11-06 11:01 | Discharge Plan ---
Discharge Plan Problem Reviewed?: Yes Disposition: Home, Self Care Condition: Critical Prescriptions: Acetaminophen [Acetaminophen Extra Strength] 1,000 mg PO Q8H PRN #60 tablet PRN Reason: Pain Docusate Sodium 100Mg Capsule [Colace 100Mg Capsule] 100 - 200 mg PO BID PRN #60 cap PRN Reason: Constipation Ferrous Gluconate 324 mg PO BID #60 tablet Ibuprofen [Motrin] 600 mg PO Q6H PRN #60 tab PRN Reason: Pain Gabapentin [Neurontin] 300 mg PO TID PRN #60 cap PRN Reason: Pain oxyCODONE [Roxicodone] 2.5 - 5 mg PO Q4H PRN #24 tablet PRN Reason: Severe Pain Ascorbic Acid [Vitamin C] 250 mg PO BID 2 Days #60 tablet Activity Restrictions: Additional Comments (see below) Shower Restrictions: Yes (No tub baths or hot tubs for 4 weeks) Additional Instructions or Follow Up instructions: PELVIC REST: Nothing in the vagina for 6 weeks: No intercourse, tampons, douching. You are at high risk of uterine infection during this time frame. WARNING SIGNS: Call for: -Fever greater than 100.5 -Pain that does not improve with pain medication -Heavy bleeding in which you are soaking a pad an hour for 2 hours in a row -Incision becomes hot, hard, red, starts to open, or leaks foul smelling fluid -Pain or swelling in one leg and not the other +/- shortness of breath or chest pain LIFTING: No lifting more than 10# for 4 weeks DRIVING: No driving while on narcotics BATHING/WOUND CARE: Ok to shower. Let water run over the incision. Do not soap, scrub, or apply lotion. Pat dry with a clean towel or latoya a chairman emeritus. The surgical stickers will start to peel off and you can remove them when they do. Otherwise, the provider will remove them at your one week follow-up appointment. OK to use an unscented sanitary napkin or clean washcloth to keep the incision dry if the belly folds over the incision. MEDICATIONS: Ibuprofen 600 mg by mouth every 6 hours as needed for pain Acetaminophen 500-1000 mg by mouth every 8 hours as needed for pain Docusate 100-200 mg by mouth twice a day as needed for constipation Oxycodone 2.5-5 mg by mouth every 4 hours as needed for pain Gabapentin 300 mg by mouth every 8 hours as needed for pain Iron sulfate 325 mg by mouth twice a day OR iron gluconate 324 mg by mouth twice a day (either is fine) Vitamin C 250 mg by mouth twice a day to be taken with iron No Smoking: If you smoke, Please STOP! Call for help. Follow-up with: Mandy Costa MD [Provider Admit Priv/Credential] -
[2021-11-06] MEDS: SODIUM CHLORIDE FLUSH 0.9% 10 ML SYRINGE IVP SCH ×2 (12:23→17:10)
[2021-11-06] MEDS: CALCIUM CARBONATE CHEW 500 MG TABLET PO SCH (12:23)
[2021-11-06] MEDS: INSULIN ASPART 300 UNIT/3 ML PEN SUBQ SCH ×3 (12:24→17:10)
[2021-11-06] MEDS: SIMETHICONE CHEW 80 MG TABLET PO PRN (13:50)
[2021-11-06 16:23] VITALS: BP 120/57
--- NOTE | 2021-11-06 17:58 | PROVIDER PROGRESS NOTE ---
Subjective - Prog Note Date Prog Note Date: 11/06/21 Prog Note Time: 17:57 - Subjective Subjective: Patient doing well. Cleared by PT and able to walk to and from bathroom. Has had a shower and "feels wonderful" Reviewed sinus rhythm on EKG Ready to DC and will fu in one week Objective - Vital Signs/Intake & Output Vital Signs: Vital Signs x48h Temp Pulse Resp BP BP BP BP 11/06/21 16:20 98.2 F 72 18 120/57 L 11/06/21 12:05 125/67 125/65 11/06/21 11:15 98.4 F 71 20 117/56 L Pulse Ox 11/06/21 16:20 100 11/06/21 12:05 11/06/21 11:15 100 Intake & Output: Intake & Output 11/03/21 11/04/21 11/05/21 11/06/21 23:59 23:59 23:59 23:59 Intake Total 2346.692 7288.000 3787.001 1990.667 Output Total 225 1700 1875 Balance 106.076 9246.000 2059.812 2263.667 - Lab Results Fish Bones: 11/05/21 19:27 11/04/21 07:18 Other Labs: Lab Results x24hrs 11/05/21 11/02/21 Range/Units 19:27 11:00 WBC 14.4 H (4.8-10.8) x10^3/uL RBC 3.11 L (4.20-5.40) 10^6/uL Hgb 7.7 L (12.0-16.0) g/dL Hct 24.9 L (37.0-47.0) % MCV 80.1 L (81.0-99.0) fL MCH 24.8 L (27.0-31.0) pg MCHC 30.9 L (32.0-36.0) g/dL RDW 22.8 H (12.0-15.0) % Plt Count 309 (130-450) 10^3/uL MPV 10.2 (7.9-10.8) fL Neut # (Auto) 11.4 H (1.5-6.6) 10^3/uL Lymph # (Auto) 1.5 (1.5-3.5) 10^3/uL [place] # (Auto) 1.1 H (0.0-1.0) 10^3/uL Eos # (Auto) 0.2 (0.0-0.7) 10^3/uL Baso # (Auto) 0.1 (0.0-0.1) 10^3/uL Absolute Nucleated RBC 0.12 x10^3/uL Nucleated RBC % 0.8 /100WBC Manual Slide Review Indicated Platelet Estimate NORMAL (130-450,000) (NORMAL) Platelet Morphology 1+ GIANT PLATELETS (NORMAL) RBC Morph Micro Appear 1+ SCHISTOCYTES (NORMAL) Blood Type AB POSITIVE Antibody Screen NEGATIVE Crossmatch IS Only See Detail
--- NOTE | 2021-11-06 18:00 | DISCHARGE SUMMARY ---
Discharge Summary Admit Date: 11/02/21 Discharge Date: 11/06/21 Discharging Provider: Julissa Code Status: Attempt Resuscitation Condition at Discharge: Good Discharge Disposition: 01 Home, Self Care - DIAGNOSES Admission Diagnoses: Profound anemia Dysfunctional uterine bleeding Uterine fibroids Discharge Diagnoses with Status of Each Condition: Same and s/p myomectomy, hysterectomy, and salpingectomy with cystoscopy. Vaginal approach with conversion to open Massive transfusion - HPI History of Present Illness: Patient is a 46 yo admitted with acute blood loss anemia in the setting of DUB 2/2 uterine mass. Patient reports that she has had eavy vaginal bleeding for about 18 months. Most recently, she had heavy vaginal bleeding on Tuesday evening (10/30/21) through to Tuesday morning. She passed "a bucket of blood". Bleeding stopped Tuesday day until Tuesday (11/01/21) pm. She soaked "5 diapers with blood" and then passed out this am. One random day last week, she passed a "baby sized clot". She started COCs about 6 weeks ago after having a telehealth visit. She was having terrible cramps that ached from her chest to her anus and felt like she was passing a placenta. Pain improved with COCs. Bleeding has been going on for more than a year. Has had 2 presentations for transfusions prior to current. States she had light menses until 2019. In the fall, she started having heavy period that were high volume for 3 days. Review of medical records show that she had a pelvic us on 04/16/2020 that showed a 3 cm submucosal fibroid. Uterus measured 10.3x5.5x5.8 cm with a volume of 1 71.2. This was read as normal volume. She was counseled to follow-up with OBGYN but did not. Patient could not tolerate a TVUS today given mildly obtunded state 2/2 severe anemia. TAUS showed uterine enlargement but imaging was suboptimal. Pelvic MRI recommended. MRI showed an enlarged uterus with a 7.2 cm fibroid in the lower uterine segment, with cystic degenerating appearance, and addion ~3 cm fibroid, and adenomyosis. Patient bought an [employer] H[employer] processor for her home. She states she runs a Hgb 8-9 and drops below 7 when she has her menses. She has been taking iron and crushed liver pills as well as a yellow dockroot to control bleeding. States she checks her blood sugars at home and they are normal. says they do not check that often. Her BG was reported to be 240 in ambulance. It was 279 with intake labs. FH remarkable for father with extensive liver hemangioma that caused internal bleeding, with a low Hgb of 2. Eventually had heart failure. while awaiting liver transplant. Mother had a virus in childhood that led to heart disease. Mother also while awaiting transplant. Autn with DM. Patient reports 4 pregnancies and 1 . Cone biopsy at age 20 with normal pap smears since. Reports that she had a pap smear about 3 years ago, prior to moving to [facility]. No STIs. No SA since September. No dyspareunia. Has been isolating at home due to her immune systems compromised by severe anemia. Reports first transfusion was in 12/18. Friend reports 2nd transfusion was on her birthday ([birth year]). Patient notes her recall is impaired by her state of anemia. States she also stopped eating meat. - CONSULTS | PROCEDURES Consultations: Critical care/ PT/OBGYN Procedures: Myomectomy followed with total vaginal hysterectomy with conversion to open procedure, bilateral salpingectomy, and cystoscopy. - HOSPITAL COURSE Hospital Course: PROCEDURE: Myomectomy/Vaginal hysterectomy with conversion to open, bilateral salpingectomy, and cystoscopy Patient was admitted n the evening of 11/02/21 and was transfused with 4 units PRBC to reach a hgb of 7.1 with plan to proceed to surgery to mitigate on-going blood loss. She was brought to the OR on 11/03/21. Intraoperative findings showed a palpable mass at cervical os with edge of the cervix pulled up behind the mass. Speculum was placed and a 5 cm wide fibroid was protruding from the external os and palpated deep into the lower uterine segment. Cervix was effaced to 80% and was dilated to 4-5 cm, with soft, stretchy texture. Uterus was enlarged to about 18 wga. Active uterine bleeding with more than 150-200 cc passed prior to initiation of the procedure. Fibroid was removed and was about 8 cm in length and 5 cm in width. The residual cervical tissue was soft, dilated, and floppy, similar to a post cervix. Length exceeded more than 7 cm. Could not support B[employer]er uterine manipulator or Marcelo cup. The uterus, absent of of fibroid and fallopian tubes, weighed 320 g. Bilateral fallopian tubes were enlarged and distended to more than 2cm in diameter for width. Right side was larger than left. Bilateral ovaries were unremarkable. Mild inflammatory changes, adhesions. In addition to the 4 units PRBCS given pre-operatively, patient underwent additional transfusion on 1 unit PRBC and 1 unit FFP given active blood loss and surgical blood loss with baseline preoperative Hgb 7.1. This was in addition ot 4 units of PRBC administered prior to the procedure. Procedure entailed and vaginal myomectomy wth removal of the fibroid partially prolapsed through the external os. Given the marked alteration of the cervix, the decision was made to proceed with a vaginal approach. The bulk of the procedure was performed through the vaginal approach. However, the anatomy was distorted such at the upper pedicles were difficult to safely access and ligate and ongoing blood loss in the setting of baseline anemia required efficient resolution of hysterectomy. Patient underwent conversion to open procedure via Pfannenstiel incision. Closure of the vaginal cuff was performed from a vaginal approach. Cystoscopy was performed postoperatively and bilateral ureteral jets were noted. Procedure was well tolerated. However, given the profound anemia and massive transfusion, the decision was made to admit patient to the ICU postoperatively for telemonitoring. She was given an additional unit of PRBC in the ICU. Transferred to med Surg floor on POD#2. PROFOUND ACUTE BLOOD LOSS ANEMIA: Patient received 5 units of pRBC and 1 unit FFP intraop and preop -Received additional unit PRBC in ICU on POD#0 -Received additional unit PRBC on POD#1 for total of 7 units pf PRBC and 1 unit of FFP given dizziness with attempts at ambulation, sitting upright -Received iron infusionx2 as well as B12 and folate -POD#3, symptoms of anemia resolved an no longer limiting ADLs VTE PPX: SCDs and Lovenox -Received lovenox at ppx dose during postop period and SCDS were applied and encourage. -Counseled patient regarding risk of VTE post transfusion and post-surgery and emphasized need for regular mobilization in home environment FEN: Tolerating po. See iron/B12/folate supplementation above -Calcium repletion administered based on ionized calcium results. -Glucose, markedly elevated at presentation, appropriate in post op period. ID: -Elevated WBC post op but afebrile. Likely stress response -Transition between open and vaginal approach to surgery increases risk of contamination and cefazolin 1g IV Q8H and metronidazole 500 mg IV bid continued for 24 hours post op CARDS: Patient with severe anemia and chest pain at presentation. Chest pain relieved with transfusion. -BP noted to be different in right and left arm both in OR and in postop period -Holosystolic murmur noted in postop period, diminished with transfusion -Hx of cardiac issues in childhood related to prematurity at -EKG shows normal sinus rhythm -Discussed with ICU, recommends follow-up with Cardiology. Referral submitted through clinic. PT: Had been under self-imposed bedrest for more than 6 months given ongoing profound anemia. Had been using a wheelchair in home environment -Generalized decompensation of MSK system given lack of activity. -PT assessed and patient was able to ambulate to degree adequate for self care. -Will need outpatient PT Will follow-up for incision check in one week. - ALLERGIES Allergies/Adverse Reactions: Allergies Allergy/AdvReac Type Severity Reaction Status Date / Time Penicillins Allergy Anaphylaxis Verified 11/02/21 10:57 pineapple Allergy Unknown Verified 11/04/21 13:15 - MEDICATIONS Home Medications: Ambulatory Orders Medication Instructions Recorded Confirmed Ferrous Sulfate 2 tab PO DAILY 11/02/21 11/02/21 Acetaminophen [Acetaminophen Extra 1,000 mg PO Q8H PRN #60 tablet 11/05/21 Strength] Ascorbic Acid [Vitamin C] 250 mg PO BID 2 Days #60 tablet 11/05/21 Docusate Sodium 100Mg Capsule 100 - 200 mg PO BID PRN #60 cap 11/05/21 [Colace 100Mg Capsule] Ferrous Gluconate 324 mg PO BID #60 tablet 11/05/21 Gabapentin [Neurontin] 300 mg PO TID PRN #60 cap 11/05/21 Ibuprofen [Motrin] 600 mg PO Q6H PRN #60 tab 11/05/21 oxyCODONE [Roxicodone] 2.5 - 5 mg PO Q4H PRN #24 tablet 11/05/21 - LABS Result Diagrams: 11/05/21 19:27 11/04/21 07:18 - DIAGNOSTIC IMAGING Diagnostic Imaging Results: Read independently - QUALITY (Female Hip Fx Only) Was patient sent home on osteoporosis medication?: No - FOLLOW UP Follow Up: 1 week - TIME SPENT Time Spent in Discharge (Minutes): 60
== END 2021-11-06 19:10 | disposition home or self-care (01) | DRG 742 ==
LOC: EDUNIT# → ED 10:43 → MS2 20:07 → OBSVTOIN 11-05 13:23
PROVIDERS: ADMIT Obstetrics & Gynecology; ATTEND Obstetrics & Gynecology
PROC: 30233N1 Transfusion of Nonautologous Red Blood Cells into Peripheral Vein, Percutaneous Approach (ICD-10-PCS; 2021-11-02)
PROC: 0UT20ZZ Resection of Bilateral Ovaries, Open Approach (ICD-10-PCS; 2021-11-03)
PROC: 0UT70ZZ Resection of Bilateral Fallopian Tubes, Open Approach (ICD-10-PCS; 2021-11-03)
PROC: 0UT90ZZ Resection of Uterus, Open Approach (ICD-10-PCS; principal; 2021-11-03 09:00)
PROC: 30233K1 Transfusion of Nonautologous Frozen Plasma into Peripheral Vein, Percutaneous Approach (ICD-10-PCS; 2021-11-04)
DX: D25.9 Leiomyoma of uterus, unspecified (principal); D62 Acute posthemorrhagic anemia; N73.6 Female pelvic peritoneal adhesions (postinfective); N93.8 Other specified abnormal uterine and vaginal bleeding; D72.829 Elevated white blood cell count, unspecified; R42 Dizziness and giddiness; R73.9 Hyperglycemia, unspecified; Z20.822 Contact with and (suspected) exposure to COVID-19
CPT/HCPCS: 0202U; 36415; 36430; 72197; 74018; 76856; 80053; 82330; 82947; 83690; 84439; 84443; 84703; 85014; 85018; 85025; 85610; 86850; 86900; 86901; 86920; 93005; 96361; 96365; 96367; 96372; 96375; 96376; 97161; 99284; 99285; A9270; A9585; J0330; J0690; J1170; J1200; J1650; J2916; J3490; J7040; J7120; P9016; P9017; Q0162

== ENCOUNTER 2021-12-21 16:49 | Outpatient (CLI) | payer MEDICAID ==
[2021-12-21 17:07] LABS: BILIRUBIN,URINE NEGATIVE (NEGATIVE); GLUCOSE, URINE (UA) NEGATIVE (NEGATIVE); KETONES,URINE (UA) NEGATIVE (NEGATIVE); LEUKOCYTE ESTERASE, URINE SMALL (NEGATIVE); NITRITE,URINE POSITIVE (NEGATIVE); OCCULT BLOOD,URINE LARGE (NEGATIVE); PROTEIN,URINE 100 mg/dL (NEGATIVE); UROBILINOGEN,URINE 0.2 (NORMAL) E.U./dL (NORMAL)
[2021-12-21 17:15] LABS: CLARITY,URINE SL. CLOUDY (CLEAR)
[2021-12-21 17:39] LABS: BACTERIA,URINE Many /HPF (None Seen); RBC,URINE TNTC /HPF (0-5); SQUAMOUS EPITHELIAL CELL,UR MOD Squamous (<= Few); WBC,URINE >25 /HPF (0-5)
== END 2021-12-21 16:50 | disposition home or self-care (01) ==
LOC: LAB.R 16:49
PROVIDERS: ATTEND Obstetrics & Gynecology
DX: R30.0 Dysuria (principal)
CPT/HCPCS: 81001; 87086

== ENCOUNTER 2021-12-25 08:00 | Outpatient (CLI) | payer MEDICAID ==
[2021-12-25 16:44] LABS: BILIRUBIN,URINE NEGATIVE (NEGATIVE); GLUCOSE, URINE (UA) NEGATIVE (NEGATIVE); KETONES,URINE (UA) NEGATIVE (NEGATIVE); LEUKOCYTE ESTERASE, URINE LARGE (NEGATIVE); NITRITE,URINE POSITIVE (NEGATIVE); OCCULT BLOOD,URINE LARGE (NEGATIVE); PROTEIN,URINE 100 mg/dL (NEGATIVE); UROBILINOGEN,URINE 0.2 (NORMAL) E.U./dL (NORMAL)
[2021-12-25 16:50] LABS: CLARITY,URINE CLOUDY (CLEAR)
[2021-12-25 17:15] LABS: RBC,URINE TNTC /HPF (0-5); WBC,URINE >25 /HPF (0-5)
[2021-12-25 17:16] LABS: BACTERIA,URINE Many /HPF (None Seen); SQUAMOUS EPITHELIAL CELL,UR NONE SEEN (<= Few)
== END 2021-12-25 23:59 ==
LOC: LAB 08:00
PROVIDERS: ATTEND Obstetrics & Gynecology
DX: R30.0 Dysuria (principal)
CPT/HCPCS: 81001; 87077; 87086; 87181

== ENCOUNTER 2021-12-30 13:26 | Emergency (ER) | payer MEDICAID ==
[2021-12-30 14:15] LABS: BASOPHILS # (AUTO) 0.1 10^3/uL (0.0-0.1); BASOPHILS % (AUTO) 0.3 %; EOSINOPHILS # (AUTO) 0.1 10^3/uL (0.0-0.7); EOSINOPHILS % (AUTO) 0.3 %; HGB - HEMOGLOBIN 13.3 g/dL (12.0-16.0); LYMPHOCYTES # (AUTO) 1.4 10^3/uL (1.5-3.5); LYMPHOCYTES % (AUTO) 9.3 %; MEAN CORPUSCULAR HEMOGLOBIN 28.5 pg (27.0-31.0); MEAN CORPUSCULAR HGB CONC 32.4 g/dL (32.0-36.0); MEAN PLATELET VOLUME 9.9 fL (7.9-10.8); MONOCYTES # (AUTO) 1.6 10^3/uL (0.0-1.0); MONOCYTES % (AUTO) 10.4 %; NEUTROPHILS # (AUTO) 11.8 10^3/uL (1.5-6.6); NEUTROPHILS % (AUTO) 79.2 %; PLT - PLATELET COUNT 338 10^3/uL (130-450); RED BLOOD COUNT 4.66 10^6/uL (4.20-5.40); RED CELL DISTRIBUTION WIDTH 16.5 % (12.0-15.0)
[2021-12-30 14:19] LABS: SLIDE REVIEW? Indicated
--- NOTE | 2021-12-30 14:22 | ED Physician Documentation ---
History of Present Illness - Stated complaint Stated Complaint: RAPID HEART RATE - Chief complaint Chief Complaint: Cardiac - Additonal information Additional information: 46-year-old female presents the emergency department for evaluation of palpitations, rigors and chills. She states that on the she was diagnosed with a urinary tract infection and was started on Macrobid and Pyridium. She is not taking the Pyridium because she wants to see if her urinary symptoms have resolved. With the Macrobid she is finding less dysuria and discolored urine though she still has the frequency. However about an hour after taking the Macrobid she begins to have fevers that are subjective chills and rigors. These last for about 2 to 3 hours before resolving. She is also been having some palpitations. Patient also reports that she has had persistent nausea for the last 2 to 3 days but no vomiting. She has anorexia secondary to the nausea. Urine collected on 25 December reveals a culture of a pansensitive E. coli. She was admitted to this hospital in early October for severe anemia secondary to bleeding uterine fibroids and ultimately required an emergent hysterectomy as well as a total of 7 units PRBCs as well as 2 units FFP during her hospital stay. Review of Systems Constitutional: reports: Fever, Chills, Myalgias Eyes: reports: Reviewed and negative Ears: reports: Reviewed and negative Nose: reports: Reviewed and negative Cardiac: reports: Reviewed and negative Respiratory: reports: Reviewed and negative GI: reports: Abdominal Pain : denies: Dysuria Skin: reports: Reviewed and negative Musculoskeletal: reports: Reviewed and negative PD PAST MEDICAL HISTORY - Past Medical History Cardiovascular: None Respiratory: None Neuro: None Endocrine/Autoimmune: Type 2 diabetes GI: None : None Musculoskeletal: None Derm: None - Past Surgical History Past Surgical History: No General: 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: Other - Present Medications Home Medications: Ambulatory Orders Medication Instructions Recorded Confirmed Ferrous Sulfate 2 tab PO DAILY 11/02/21 12/30/21 Acetaminophen [Acetaminophen Extra 1,000 mg PO Q8H PRN #60 tablet 11/05/21 12/30/21 Strength] Ascorbic Acid [Vitamin C] 250 mg PO BID 2 Days #60 tablet 11/05/21 12/30/21 Docusate Sodium 100Mg Capsule 100 - 200 mg PO BID PRN #60 cap 11/05/21 12/30/21 [Colace 100Mg Capsule] Ferrous Gluconate 324 mg PO BID #60 tablet 11/05/21 12/30/21 Ibuprofen [Motrin] 600 mg PO Q6H PRN #60 tab 11/05/21 12/30/21 Cefpodoxime Proxetil [Vantin] 100 mg PO Q12H #10 tablet 12/30/21 Ondansetron Odt [Zofran] 4 mg TL Q6H PRN #10 tablet 12/30/21 - Allergies Allergies/Adverse Reactions: Allergies Allergy/AdvReac Type Severity Reaction Status Date / Time Penicillins Allergy Anaphylaxis Verified 12/30/21 13:42 pineapple Allergy Unknown Verified 12/30/21 13:42 - Social History Does the pt smoke?: No Smoking Status: Never smoker Does the pt drink ETOH?: No Does the pt have substance abuse?: Yes - Immunizations Immunizations are current?: Yes - POLST Patient has POLST: No PD ED PE NORMAL - General General: Alert and oriented X 3, No acute distress - HEENT HEENT: PERRL - Neck Neck: Supple, no meningeal sign, No adenopathy - Cardiac Cardiac: RRR (no tachycardia), No murmur, No gallop, Strong equal pulses - Respiratory Respiratory: Clear bilaterally - Abdomen Abdomen: Normal bowel sounds, Soft, Non distended. 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 Eye Opening: Spontaneous Motor: Obeys Commands Verbal: Oriented GCS Score: 15 Results - Vitals Vitals: Vital Signs - 24 hr 12/30/21 13:45 Temperature 36.6 C Heart Rate 66 Respiratory 18 Rate Blood Pressure 119/45 L O2 Saturation 98 Oxygen O2 Source Room air - EKG (time done) 1351 Rate: Rate (enter#) (72) Rhythm: NSR [place]: LAD Intervals: Normal [place] QRS: Normal Ischemia: Normal ST segments Compare to prior EKG: Unchanged from prior EKG Computer interpretation: Agree with computer - Labs Labs: Laboratory Tests 12/30/21 12/30/21 12/30/21 14:10 14:10 14:10 WBC 15.0 H RBC 4.66 Hgb 13.3 Hct 41.0 MCV 88.0 MCH 28.5 MCHC 32.4 RDW 16.5 H Plt Count 338 MPV 9.9 Neut # (Auto) 11.8 H Lymph # (Auto) 1.4 L Love # (Auto) 1.6 H Eos # (Auto) 0.1 Baso # (Auto) 0.1 Absolute Nucleated RBC 0.00 Nucleated RBC % 0.0 Manual Slide Review Indicated WBC Morphology Platelet Estimate NORMAL (130-450,000) Platelet Morphology NORMAL APPEARANCE RBC Morph Micro Appear NORMAL APPEARANCE Sodium 136 Potassium 3.7 Chloride 101 Carbon Dioxide 25 Anion Gap 10.0 BUN 8 Creatinine 0.9 Estimated GFR (MDRD) 67 L Glucose 129 H Calcium 9.1 Total Bilirubin 0.8 AST 26 ALT 45 Alkaline Phosphatase 163 H Total Protein 8.4 H Albumin 3.7 Globulin 4.7 H Albumin/Globulin Ratio 0.8 L Lipase 172 H HCG, Quant 0.60 Urine Color Urine Clarity Urine pH Ur Specific [place] Urine Protein Urine Glucose (UA) Urine Ketones Urine Occult Blood Urine Nitrite Urine Bilirubin Urine Urobilinogen Ur Leukocyte Esterase Ur Microscopic Review Urine Culture Comments 12/30/21 14:26 WBC RBC Hgb Hct MCV MCH MCHC RDW Plt Count MPV Neut # (Auto) Lymph # (Auto) Love # (Auto) Eos # (Auto) Baso # (Auto) Absolute Nucleated RBC Nucleated RBC % Manual Slide Review WBC Morphology Platelet Estimate Platelet Morphology RBC Morph Micro Appear Sodium Potassium Chloride Carbon Dioxide Anion Gap BUN Creatinine Estimated GFR (MDRD) Glucose Calcium Total Bilirubin AST ALT Alkaline Phosphatase Total Protein Albumin Globulin Albumin/Globulin Ratio Lipase HCG, Quant Urine Color YELLOW Urine Clarity CLEAR Urine pH 5.5 Ur Specific [place] 1.025 Urine Protein TRACE Urine Glucose (UA) NEGATIVE Urine Ketones TRACE Urine Occult Blood NEGATIVE Urine Nitrite NEGATIVE Urine Bilirubin NEGATIVE Urine Urobilinogen 0.2 (NORMAL) Ur Leukocyte Esterase NEGATIVE Ur Microscopic Review NOT INDICATED Urine Culture Comments NOT INDICATED - Rads (name of study) CT abd Radiology: Final report received (No CT evidence of pancreatitis. Cholelithiasis without evidence of cholecystitis. No biliary ductal dilation. Surgical absence of the uterus. New small indistinct peripheral hypodensity medially in the left kidney. Finding is nonspecific, secondary findings of pyelonephritis are not seen) PD MEDICAL DECISION MAKING - ED course Complexity details: reviewed results, re-evaluated patient, d/w patient ED course: 46-year-old female presents emergency department for evaluation of persistent nausea, intermittent rigors chills and myalgias that began about 2 days ago. She was started on Macrobid and for treatment of a urinary tract infection. The urine culture did grow a pansensitive E. coli. Patient feels that the predominance of her symptoms are worse after taking the Macrobid and last for a few hours before resolving. Today on evaluation she had some generalized nonspecific abdominal pain. There were no fevers. Her vital signs are otherwise unremarkable. Screening labs showed mild leukocytosis with a white count of just over 15,000. Her electrolytes also revealed a mildly elevated lipase at 172. A CT scan was completed and there were no secondary findings to suggest acute pancreatitis. We do note a small hypodense lesion in the left medial kidney. This is nonspecific but may be an early finding of pyelonephritis though there are no secondary findings to suggest this. Review of side effects related to Macrobid reveals that it could be a cause of a mild pancreatitis. Given this and after conversation with the patient the decision is made to discontinue her Macrobid and start her on an additional 5 days of Vantin for treatment of the urinary tract infection/possible early pyelo. Patient is prescribed some Zofran to help with nausea. She is advised to clear liquid diet for the next 24 to 36 hours. If symptoms are not markedly improving or worsening over that timeframe she will return to the ER for second evaluation. Patient is advised to schedule with a primary care doctor. I recommended that she have her labs repeated in the next 2 weeks to ensure that the lipase has normalized. Departure - Departure Disposition: 01 Home, Self Care Clinical Impression: Elevated lipase Leukocytosis Qualifiers: Leukocytosis type: unspecified Qualified Code(s): D72.829 - Elevated white blood cell count, unspecified Condition: Stable Record reviewed to determine appropriate education?: Yes Follow-Up: [facility] [Provider Group] Prescriptions: Cefpodoxime Proxetil [Vantin] 100 mg PO Q12H #10 tablet Ondansetron Odt [Zofran] 4 mg TL Q6H PRN #10 tablet PRN Reason: Nausea / Vomiting Comments: Sussy godfery are seen in the emergency department today for a few days of nausea, c hills rigors and some mild abdominal discomfort. You were started on Macrobid and antibiotic to treat a urinary tract infection on the . Today your screening labs do show a very mild white blood cell count elevation. However your lipase was also elevated. This made us concerned that you could have a condition called pancreatitis. We did do a CT scan and there are no findings of pancreatitis. There is a question if you could have a possible very mild or early left-sided kidney infection. However your urine sample today looks markedly better than it did when it was obtained on the . It is also possible that Macrobid could cause a mild lipase elevation. Therefore I would like you to stop taking the Macrobid and begin taking the Vantin/Cefpodoxime. Take this twice a day for [address] scan did not show pancreatitis it is possible that you just have a very mild 1. Please use the Zofran as a nausea medicine and for the next 24 to 36 hours sip clear liquids. If despite clear liquids and the nausea medicine your symptoms or not improving, you develop fevers have suddenly severe abdominal pain or vomiting then please return immediately to the ER for second evaluation. It is important that you have your labs especially her lipase reevaluated in about 2 weeks to ensure that it has normalized. I do recommend he try following up with a primary care doctor perhaps through [facility] or the [facility] in [place]. Your prescriptions have been sent to the [facility].
[2021-12-30 14:34] LABS: ALBUMIN 3.7 g/dL (3.2-5.5); ALBUMIN/GLOBULIN RATIO 0.8 (1.0-2.2); BILIRUBIN,TOTAL 0.8 mg/dL (0.2-1.0); CALCIUM 9.1 mg/dL (8.5-10.3); CREATININE 0.9 mg/dL (0.4-1.0); POTASSIUM 3.7 mmol/L (3.5-5.0); TOTAL PROTEIN 8.4 g/dL (6.7-8.2)
[2021-12-30 14:36] LABS: PLATELET ESTIMATE, MANUAL NORMAL (130-450,000) (NORMAL); PLATELET MORPHOLOGY NORMAL APPEARANCE (NORMAL); RBC MORPHOLOGY (MULTIPLE) NORMAL APPEARANCE (NORMAL)
[2021-12-30 14:39] LABS: GLUCOSE, URINE (UA) NEGATIVE (NEGATIVE); KETONES,URINE (UA) TRACE mg/dL (NEGATIVE); LEUKOCYTE ESTERASE, URINE NEGATIVE (NEGATIVE); NITRITE,URINE NEGATIVE (NEGATIVE); OCCULT BLOOD,URINE NEGATIVE (NEGATIVE); PH,URINE 5.5 PH (5.0-7.5); PROTEIN,URINE TRACE mg/dL (NEGATIVE); UROBILINOGEN,URINE 0.2 (NORMAL) E.U./dL (NORMAL)
[2021-12-30 14:42] LABS: CLARITY,URINE CLEAR (CLEAR)
[2021-12-30 14:44] LABS: BILIRUBIN,URINE NEGATIVE (NEGATIVE); ICTOTEST,URINE NEGATIVE
[2021-12-30] MEDS ORDERED: IOVERSOL 320 100 ML VIAL IVP ONE ×2 (15:06→17:38)
[2021-12-30] MEDS ORDERED: ONDANSETRON 4 MG/2 ML VIAL IVP STA (15:11)
--- NOTE | 2021-12-30 16:27 | CT Report ---
PROCEDURE: Abdomen/Pelvis W INDICATIONS: leukocytosis; elevated lipase; fevers CONTRAST: IV CONTRAST: Optiray 320 ml: 100 PO CONTRAST: *NO PO CONTRAST TECHNIQUE: After the administration of intravenous contrast, 5 mm thick sections acquired from the diaphragms to the symphysis. 5 mm thick coronal and sagittal reformats were acquired. For radiation dose reducti on, the following was used: automated exposure control, adjustment of mA and/or kV according to jovanny ent size. COMPARISON: CT abdomen pelvis 07/11/2021, MRI pelvis 11/02/2021. FINDINGS: Image quality: Excellent. ABDOMEN: Lung bases: There is mild atelectasis or scarring in the left lung base. Heart size is normal. Solid organs: Evaluation of the liver demonstrates no focal hepatic lesions. There is a calcified ga llstone in the region of the gallbladder neck without associated wall thickening or pericholecystic f at stranding. Biliary system is non dilated. The spleen is normal in size. Pancreas enhances normall y without peripancreatic fat stranding or fluid collections. No adrenal nodules. Kidneys demonstrat e no hydronephrosis. There is a new small indistinct peripheral wedge-shaped hypodensity in the media l aspect of the left kidney. Peritoneum and bowel: Bowel loops demonstrate normal wall thickness and caliber. No evidence of olvin endicitis. There is colonic diverticulosis without acute diverticulitis. No free fluid or air. Nodes and vessels: There are multiple mildly enlarged retroperitoneal lymph nodes with preserved fatt y janell, measuring up to 1.0 cm in short axis. Aorta and inferior vena cava are normal in size. Miscellaneous: No ventral hernias. PELVIS: Genitourinary: The urinary bladder is partially distended. The uterus is surgically absent. Ovaries a ppear within normal size limits. There is a small amount of pelvic free fluid in the pelvis which olvin ears within physiologic limits. No loculated fluid collections to suggest an abscess. No free air. Miscellaneous: There is a ventral surgical scar within the lower abdominal wall. No inguinal hernias or adenopathy. Bones: No suspicious bony lesions. No vertebral body compression fractures. IMPRESSION: 1. No CT evidence of pancreatitis. 2. Cholelithiasis without CT evidence of cholecystitis. No biliary ductal dilatation. 3. Surgical absence of the uterus with a small amount of free fluid in the pelvis. The findings are n onspecific and may reflect sequelae of prior surgery or physiologic fluid. No loculated fluid collect ions to suggest an abscess. 4. New small indistinct peripheral hypodensity medially in the left kidney. The finding is nonspecifi c and the differential includes pyelonephritis (although no perinephric stranding or perinephric flui d collections are present), renal infarct, or developing cyst. Recommend correlation clinically and i f indicated a short-term follow-up ultrasound may be performed for further evaluation. 5. Colonic diverticulosis without acute diverticulitis. Reviewed by: Deon Weir MD on 12/30/2021 4:26 PM PST Approved by: Deon Weir MD on 12/30/2021 4:26 PM PST Station ID: [id number]
[2021-12-30 16:53] VITALS: BP 134/79
== END 2021-12-30 16:53 | disposition home or self-care (01) ==
LOC: ED 13:26
DX: D72.829 Elevated white blood cell count, unspecified (principal); T50.905A Adverse effect of unspecified drugs, medicaments and biological substances, initial encounter; R74.8 Abnormal levels of other serum enzymes; E11.9 Type 2 diabetes mellitus without complications; Z79.84 Long term (current) use of oral hypoglycemic drugs; K80.20 Calculus of gallbladder without cholecystitis without obstruction
CPT/HCPCS: 36415; 74177; 80053; 81003; 83690; 84702; 85025; 93005; 96374; 99284; Q9967; 81001; 87086